=== PATIENT | male | born 1955 | race Caucasian/White ===

== ENCOUNTER 2020-05-01 16:06 | Outpatient (REF) | payer MEDICARE, SELFPAY ==
--- NOTE | 2020-05-01 16:14 | XR_ITS ---
EXAMINATION: XR KNEE, LEFT CLINICAL INFORMATION: Pain in left knee. COMPARISON: None TECHNIQUE: Four views of the left knee. FINDINGS: There is a total left knee arthroplasty. The femoral component articulates appropriately with the tibial plateau and patellar components. No periprosthetic lucency or fracture. There is a small suprapatellar joint effusion. IMPRESSION: Total left knee arthroplasty in typical positioning and alignment. Small joint effusion present at the knee.
== END 2020-05-01 16:07 | disposition home or self-care (01) ==
LOC: HO.HMGCX 16:06
PROVIDERS: PCP Nurse Practitioner Family; Visit Provider Hospitalist
DX: M25.562 Pain in left knee (principal)
CPT/HCPCS: 73564

== ENCOUNTER 2020-08-03 15:35 | Outpatient (REF) | payer MEDICARE, SELFPAY ==
--- NOTE | 2020-08-03 15:38 | XR_ITS ---
EXAMINATION: XR HIP, LEFT CLINICAL INFORMATION: M25.552 - Pain in left hip COMPARISON: Radiographs left hip 03/16/2020 TECHNIQUE: Two views of the left hip. FINDINGS: There is mild osteoarthritis again seen similar to prior study. Again, there is mild convexity at the lateral femoral head neck junction which may predispose patient to femoro-acetabular impingement. There is no interval joint narrowing or erosive change or chondrocalcinosis. Mild spurring is again seen at the bilateral medial inferior pubic rami which may be related to adductor muscles. XR/XR hip LT min 2V IMPRESSION: Mild osteoarthritis similar to prior study 03/16/2020.
== END 2020-08-03 15:36 | disposition home or self-care (01) ==
LOC: HO.HMGCX 15:35
PROVIDERS: PCP Nurse Practitioner Family; Visit Provider Nurse Practitioner Family
DX: M25.552 Pain in left hip (principal)
CPT/HCPCS: 73502

== ENCOUNTER → 2020-08-06 07:46 | Outpatient (BNVA) | payer MEDICARE, SELFPAY | PROVIDERS: PCP Nurse Practitioner Family; Visit Provider Orthopaedic Surgery | DX: M70.62 Trochanteric bursitis, left hip (principal); E11.9 Type 2 diabetes mellitus without complications; E66.01 Morbid (severe) obesity due to excess calories | CPT/HCPCS: 20610; 99202; J1100 ==

== ENCOUNTER 2020-08-06 09:04 | Outpatient (REF) | payer MEDICARE, SELFPAY ==
[2020-08-06 10:52] LABS: Alanine Aminotransferase 46 U/L (0-40); Albumin Level 4.3 g/dL (3.5-5.0); Alkaline Phosphatase 113 U/L (39-117); Anion Gap 14 (12-20); Aspartate Amino Transferase 27 U/L (5-37); Bilirubin Total 0.7 mg/dL (0.0-1.0); Blood Urea Nitrogen 25 mg/dL (9-16); Calcium 9.5 mg/dL (8.4-10.2); Carbon Dioxide 29 mmol/L (22-29); Chloride 102 mmol/L (96-108); Cholesterol 110 mg/dL; Estimated Glomerular Filt Rate > 60; Glucose Fasting 158 mg/dL (60-99); HDL Cholesterol 31 mg/dL; LDL Cholesterol Calculated 37 mg/dl; Potassium 4.6 mmol/l (3.3-5.1); Sodium 140 mmol/L (135-145); Total Protein 7.3 g/dL (6.5-8.0); Triglycerides 210 mg/dL
[2020-08-06 10:53] LABS: Estimated Average Glucose 154 mg/dL
[2020-08-06 11:00] LABS: Creatinine Urine 194.02 mg/dL; Microalbum/Creatinine Ratio Ur 21.6 ug/mg cr
[2020-08-06 11:13] LABS: Prostate Specific Antigen Scr 1.56 ng/mL (<0.05-4.0); TSH reflex Free T4 0.98 mIU/mL (0.32-4.0)
== END 2020-08-06 09:05 | disposition home or self-care (01) ==
LOC: HO.10HDL 09:04
PROVIDERS: Visit Provider Nurse Practitioner Family
DX: E11.9 Type 2 diabetes mellitus without complications (principal); Z12.5 Encounter for screening for malignant neoplasm of prostate
CPT/HCPCS: 36415; 80053; 80061; 82043; 83036; 84153; 84443

== ENCOUNTER → 2020-09-09 09:58 | Outpatient (BNVA) | payer MEDICARE, SELFPAY | PROVIDERS: PCP Nurse Practitioner Family; Visit Provider Nurse Practitioner Family | DX: M46.1 Sacroiliitis, not elsewhere classified (principal); M70.62 Trochanteric bursitis, left hip; M25.562 Pain in left knee | CPT/HCPCS: 99202 ==

== ENCOUNTER 2020-10-09 08:00 | Outpatient (RCR) | payer MEDICARE, SELFPAY ==
--- NOTE | 2020-08-12 09:51 | MHC.PT.EP ---
[facility] [place] Office [place] Office [place] Office [address] Ingrid Barba [address] [phone] F: [phone] F: [phone] F: [phone] F: [phone] Physical Therapy Plan of Care Date of Evaluation: 08/12/20 Date of Surgery: L knee surgeries Diagnosis: L hip pain Assessment: Patient is a 65 year old R handed male who presents with s/s consistent with L hip pain. X-ray shows mild OA. He has a history of 5 L knee surgeries likely contributing. He is also re-diabetic with intermittent back pain. He worked 30 years, 12 hours per day, 7 days per week until retiring 15 years ago. Current impairments include pain, ROM, strength, safety, independence, activity tolerance and functional mobility. Functional limitations include decreased ability to walk, stand, transfer, negotiate stairs, and perform weight bearing activities.. Patient is motivated with good rehab potential. Skilled PT will address impairments and functional limitations in order to achieve goals. 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 Manual therapy to restore motion and function. Therapeutic exercise to improve strength and flexibility. Neuromuscular re-education for posture and balance. Therapeutic activities to return to functional activities of daily living. Electronically signed by: Grant Reddy, PT Please sign and return to therapist. Thank you for your referral.
--- NOTE | 2020-11-26 14:43 | MHC.PT.DC ---
[facility] [place] Office [place] Office [place] Office [address] Ingrid Barba [address] [phone] F: [phone] F: [phone] F: [phone] F: [phone] Physical Therapy Discharge Report Diagnosis: L hip pain Date of Surgery: L knee surgeries Date of Evaluation: 08/12/20 Date of Discharge: 11/03/20 Treatments to Date: 16 Cancellations to Date: 1 No Shows to Date: 0 Discharge Status: Improved Function Discharge Summary: Still with some TTP and weakness. But overall progressed well and I with HEP. Able to bike 15 minutes. Step through at times on stairs but not consistently. Hip abd 4-/5. LEFS 25/80. Progressed towards goals, some unmet. Electronically signed by: Grant Reddy PT Please sign and return to therapist. Thank you for your referral.
== END 2020-11-26 15:01 | disposition home or self-care (01) ==
LOC: HO.PTCHIC 08:00
PROVIDERS: PCP Nurse Practitioner Family; Visit Provider Nurse Practitioner Family
DX: M70.62 Trochanteric bursitis, left hip (principal)
CPT/HCPCS: 97110; 97140; 97162

== ENCOUNTER → 2020-10-22 11:19 | Outpatient (BNVA) | payer MEDICARE, SELFPAY | PROVIDERS: PCP Nurse Practitioner Family; Visit Provider Orthopaedic Surgery | DX: M70.62 Trochanteric bursitis, left hip (principal); E11.9 Type 2 diabetes mellitus without complications; M46.1 Sacroiliitis, not elsewhere classified | CPT/HCPCS: 20610; 99212; J1100 ==

== ENCOUNTER 2020-12-23 12:19 | Outpatient (REF) | payer MEDICARE, SELFPAY ==
[2020-12-23 16:13] LABS: Estimated Average Glucose 295 mg/dL; Hemoglobin A1c % 11.9 %
[2020-12-23 16:48] LABS: Alanine Aminotransferase 40 U/L (0-40); Albumin Level 4.4 g/dL (3.5-5.0); Alkaline Phosphatase 150 U/L (39-117); Anion Gap 16 (12-20); Aspartate Amino Transferase 25 U/L (5-37); Bilirubin Total 0.9 mg/dL (0.0-1.0); Blood Urea Nitrogen 20 mg/dL (9-16); Calcium 9.9 mg/dL (8.4-10.2); Carbon Dioxide 25 mmol/L (22-29); Chloride 101 mmol/L (96-108); Cholesterol 115 mg/dL; Estimated Glomerular Filt Rate > 60; HDL Cholesterol 33 mg/dL; LDL Cholesterol Calculated 33 mg/dl; Potassium 4.6 mmol/L (3.3-5.1); Sodium 137 mmol/L (135-145); Total Protein 7.2 g/dL (6.5-8.0); Triglycerides 248 mg/dL
[2020-12-23 16:57] LABS: Glucose Fasting 405 mg/dL (60-99)
[2020-12-23 17:02] LABS: Creatinine Urine 113.86 mg/dL; Microalbum/Creatinine Ratio Ur 140.5 ug/mg cr
== END 2020-12-23 12:20 | disposition home or self-care (01) ==
LOC: HO.HMGCLDS 12:19
PROVIDERS: PCP Nurse Practitioner Family; Visit Provider Nurse Practitioner Family
DX: E11.9 Type 2 diabetes mellitus without complications (principal)
CPT/HCPCS: 36415; 80053; 80061; 82043; 83036; 84443

== ENCOUNTER 2021-05-25 07:58 | Outpatient (REF) | payer MEDICARE, SELFPAY ==
[2021-05-25 12:14] LABS: Creatinine Urine 114.42 mg/dL; Protein/Creatinine Ratio, Ur 0.17 (<0.2); Total Protein Urine Random 19 mg/dL (<12)
[2021-05-25 12:17] LABS: Anion Gap 10 (12-20); Blood Urea Nitrogen 17 mg/dL (9-16); Calcium 9.2 mg/dL (8.4-10.2); Carbon Dioxide 29 mmol/L (22-29); Chloride 107 mmol/L (96-108); Estimated Glomerular Filt Rate > 60; Potassium 4.2 mmol/L (3.3-5.1); Sodium 142 mmol/L (135-145)
[2021-05-25 12:21] LABS: Cholesterol 101 mg/dL; HDL Cholesterol 35 mg/dL; LDL Cholesterol Calculated 46 mg/dl; Triglycerides 104 mg/dL
== END 2021-05-25 07:59 | disposition home or self-care (01) ==
LOC: HO.HMGCLDS 07:58
PROVIDERS: PCP Nurse Practitioner Family; Visit Provider Internal Medicine Nephrology
DX: E78.5 Hyperlipidemia, unspecified (principal); I12.9 Hypertensive chronic kidney disease with stage 1 through stage 4 chronic kidney disease, or unspecified chronic kidney disease; E11.21 Type 2 diabetes mellitus with diabetic nephropathy
CPT/HCPCS: 36415; 80051; 80061; 82310; 82565; 84156; 84520

== ENCOUNTER 2021-06-24 13:59 | Outpatient (REF) | payer MEDICARE, SELFPAY ==
--- NOTE | ~2021-06-24 | MR_ITS ---
EXAMINATION: MR BRAIN WITHOUT CONTRAST CLINICAL INFORMATION: Patient dragging right leg. Falls. Evaluate for stroke. COMPARISON: None. TECHNIQUE: Multiplanar, multisequence imaging of the brain was performed without contrast. Slightly limited study with motion artifacts. FINDINGS: No diffusion abnormalities are identified to suggest an acute or subacute infarct. The ventricles are normal in size. No mass effect or midline shift is seen. Mild chronic white matter microangiopathic changes noted. No extra-axial fluid collections are seen. The brainstem and cerebellum are normal. The gradient refocused acquisition is normal. The craniovertebral junction, marrow signal, and midline structures are normal. The major intracranial flow voids at the level of the [place] are preserved. The dural venous sinus flow voids are maintained. There is a mild amount of fluid in the mastoid air cells and very mild ethmoid sinus mucosal thickening. MR/MR head/brain wo con IMPRESSION: No acute intracranial process. Mild chronic white matter microangiopathy.
== END 2021-06-24 14:00 | disposition home or self-care (01) ==
LOC: HO.MRI 13:59
PROVIDERS: PCP Nurse Practitioner Family; Visit Provider Psychiatry & Neurology Neurology
DX: I63.9 Cerebral infarction, unspecified (principal)
CPT/HCPCS: 70551

== ENCOUNTER 2021-07-16 14:38 | Outpatient (REF) | payer MEDICARE, SELFPAY ==
--- NOTE | ~2021-07-16 | XR_ITS ---
EXAMINATION: XR SHOULDER, RIGHT CLINICAL INFORMATION: Pain in right shoulder COMPARISON: None TECHNIQUE: Three views of the right shoulder. FINDINGS: There is mild acromioclavicular osteoarthritis. Glenohumeral joint is well preserved. No fracture. Alignment is anatomic. Visualized right lung and ribs are normal. XR/XR shoulder RT min 2V IMPRESSION: No acute osseous abnormality of the right shoulder.
== END 2021-07-16 14:39 | disposition home or self-care (01) ==
LOC: HO.HMGCX 14:38
PROVIDERS: PCP Nurse Practitioner Family; Visit Provider Physician Assistant Medical
DX: M25.511 Pain in right shoulder (principal)
CPT/HCPCS: 73030

== ENCOUNTER 2021-07-21 08:37 | Emergency (ER) | payer MEDICARE, SELFPAY ==
--- NOTE | ~2021-07-21 | XR_ITS ---
EXAMINATION: LEFT KNEE 4 VIEWS. RIGHT SHOULDER 2 VIEWS CLINICAL INFORMATION: Pain COMPARISON: 07/16/2021. 08/03/2020 TECHNIQUE: 2 views of the left knee. 3 views Right shoulder. FINDINGS: Left knee: Three-part knee prosthesis intact. No fracture, dislocation or destructive process. Right shoulder: 3 views show productive change along the AC joint with narrowing of the glenohumeral joint space but no fracture, dislocation or destructive process. XR/XR knee LT 4V IMPRESSION: Degenerative change noted. No acute abnormalities.
--- NOTE | ~2021-07-21 | XR_ITS ---
EXAMINATION: LEFT KNEE 4 VIEWS. RIGHT SHOULDER 2 VIEWS CLINICAL INFORMATION: Pain COMPARISON: 07/16/2021. 08/03/2020 TECHNIQUE: 2 views of the left knee. 3 views Right shoulder. FINDINGS: Left knee: Three-part knee prosthesis intact. No fracture, dislocation or destructive process. Right shoulder: 3 views show productive change along the AC joint with narrowing of the glenohumeral joint space but no fracture, dislocation or destructive process. XR/XR shoulder RT min 2V IMPRESSION: Degenerative change noted. No acute abnormalities.
[2021-07-21 08:52] VITALS: BP 140/78; PULSE 65; RESP 16; TEMP 36.4; O2SAT 99; BMI 41.1
--- NOTE | 2021-07-21 08:58 | ED_ITS ---
HPI - Fall General Chief Complaint: Fall Stated Complaint: fall/ knee pain Time Seen by Provider: 07/21/21 08:57 Source: patient Mode of arrival: ambulatory Limitations: no limitations History of Present Illness HPI Narrative: 66-year-old male past medical history significant for diabetes, osteoarthritis of the hip, current right shoulder fracture presenting to the emergency department with left knee pain and right shoulder pain status post slip on ice earlier this morning. Patient was leaving his doctor's appointment here, he was walking to his car, he slipped on ice, fall was witnessed by multiple bystanders, he did not hit his head or lose consciousness. He was unable to get up by himself. He was brought into the emergency department in a wheelchair. He reports left knee pain worse with movement better at rest. He also reports right shoulder pain, patient is in a sling for his right shoulder, he tells me that he was recently told that he has a right shoulder fracture. He also tells me that he has hardware in his left knee he had a total knee replacement and he is followed by [facility] Dr. Wilson. No headache, dizziness, changes in vision, LOC, CP, SOB, neck pain MD complaint: fall Onset (ago): minute(s) (20) Fall from: standing Fall witnessed: yes, by bystander Place fall occurred: other ( [facility] leaving an appointment) Loss of consciousness: none Prolonged down time: no Symptoms prior to fall: none Context: tripped/slipped ( slipped on ice.) Location of injury: other (L.knee, R.shoulder) Severity: moderate Quality: other ( Constant) Associated symptoms (after fall): denies Related Data Home Medications Medication Instructions Recorded Confirmed flu vacc 2019-(65yr ml IM 05/01/20 08/03/20 up)-MF59C(PF) 60 mcg(15 mcgx4)/0.5 mL IM syringe hydrochlorothiazide 12.5 mg capsule 12.5 mg PO QAM 05/01/20 01/13/21 losartan 100 mg tablet 100 mg PO DAILY 05/01/20 01/13/21 sildenafil 25 mg tablet 25 mg PO DAILY PRN 05/01/20 01/13/21 Bifidobacterium infantis 4 mg 4 mg PO DAILY 12/23/20 01/13/21 capsule (Align) ascorbate calcium (vitamin C) 500 1,000 mg PO DAILY tab 12/23/20 01/13/21 mg tablet aspirin 81 mg tablet,delayed 81 mg PO DAILY 12/23/20 01/13/21 release coenzyme Q10 100 mg capsule (Co 100 mg PO DAILY 12/23/20 01/13/21 Q-10) fexofenadine 180 mg tablet 180 mg PO Q24H 12/23/20 01/13/21 (Lesli Allergy) qesulhvxqied-irqbfcrt-juvuiq tablet 1 tab PO DAILY 12/23/20 01/13/21 Previous Rx's Medication Instructions Recorded colchicine 0.6 mg tablet 0.6 mg PO DAILY PRN 30 Days #30 tab 06/04/20 blood sugar diagnostic (OneTouch #100 ea 12/23/20 Ultra Blue Test Strip) lancets ([employer]Touch UltraSoft #100 ea 12/23/20 Lancets) omega-3 acid ethyl esters 1 gram 2 cap PO BID 30 Days #120 cap 12/23/20 capsule insulin syringe-needle U-100 0.3 #100 ea 12/24/20 mL 31 gauge x 5/16 (BD Insulin Syringe Ultra-Fine) blood-glucose meter (OneTouch #1 ea 12/25/20 Ultra2 Meter) atorvastatin 80 mg tablet 80 mg PO DAILY 90 Days #90 tab 03/16/21 pantoprazole 40 mg tablet,delayed 40 mg PO DAILY 90 Days #90 tab 04/14/21 release metformin 1,000 mg tablet 1,000 mg PO BID 90 Days #180 tab 06/07/21 amoxicillin 875 mg-potassium 1 tab PO Q12H 10 Days #20 tab 06/30/21 clavulanate 125 mg tablet (Augmentin) amlodipine 10 mg tablet 10 mg PO DAILY #90 cap 07/18/21 insulin glargine 100 unit/mL 18 unit (0.18 mL) SUBCUT QPM 30 07/18/21 subcutaneous solution (Lantus Days #10 ml U-100 Insulin) Allergies Allergy/AdvReac Type Severity Reaction Status Date / Time methotrexate Allergy Unknown shortness Verified 01/13/21 16:10 of breath cats and dogs Allergy Unknown Unknown Uncoded 01/13/21 16:10 Review of Systems Review of Systems: Constitutional : No Fever, No Chills, Cardiovascular : No Chest Pain, No SOB Respiratory : No Dyspnea Gastrointestinal : No abdominal pain Musculoskeletal : + Joint Swelling,+ joint pain Skin : No rash, no skin laceration Neuro : No Weakness, No Numbness, no LOC Psych : No SI/HI Yes all other systems are reviewed and are negative [facility] Past Medical History Attestation statement: The following information was validated with the patient. Source: old records reviewed and nursing notes reviewed Medical History Asthma Romero esophagus CKD (chronic kidney disease) Dyslipidemia HTN (hypertension) ANTONIA (obstructive sleep apnea) Plaque psoriasis Stroke Trochanteric bursitis, left hip Type 2 diabetes mellitus Surgical History History of left knee replacement History of left knee surgery Hx of appendectomy Hx of tonsillectomy Family History Family History Father Diabetes Mother Diabetes Cancer Brother Bladder cancer Social History Social History Alcohol intake: never Advance Directives: No Advance Directives Information Provided: No Current occupational status: retired Current occupation: right handed Physical Exam Vital Signs: Vital Signs: Last Vital Signs Temp 97.6 F 07/21/21 08:52 Pulse 65 07/21/21 08:52 Resp 16 07/21/21 08:52 BP 140/78 H 07/21/21 08:52 Pulse Ox 99 07/21/21 08:52 BMI result Body Mass Index 41.1 VSS Appearance: Alert.? Oriented X3.? No acute distress.? Head: Normocephalic, atraumatic, no step-offs or deformities Eyes: Pupils equal, round and reactive to light.? ENT: Pharynx normal.? Neck: Normal inspection.? Neck supple.? CVS: Normal heart rate and rhythm.? Pulses normal.? Respiratory: No respiratory distress.? Breath sounds normal.? Abdomen: Soft and nontender.? Skin: Skin warm and dry.? Normal skin color.? Normal skin turgor.? Extremities: No lower extremity edema.? No calf ttp. 5/5 strength to bilateral upper and lower extremities + limited ROM to R. knee d/t pain, R. PT,DP pulse normal, no pain to palpation, sensation and motor intact. Left knee normal. +right shoulder pain with ROM, 2+ brachial pulses, sensation and motor intact. in a sling pt tells me d/t previous shoulder fracture pain with plapation over r. clavicle area. Back: No midline tenderness, no C-spine tenderness, full range of motion, no CVA tenderness bilaterally Neuro: Oriented X 3.? No motor deficit.? No sensory deficit. Course Reevaluation(s) Reevaluation #1: X-ray of the knee to the left shows degenerative changes, no acute abnormalities. Right shoulder shows productive change along the AC joint with narrowing of the glenohumeral joint space but no fracture. Time: 10:36 Reevaluation #2: MARÍA ELENA Sherman. Patient already in sling, want to ensure patient has out patient follow up. Orthopedics recommends outpatient follow-up. Possible fracture, they will evaluate him on an outpatient basis. At this time I feel comfortable discharge home. Time: 10:39 MDM - Fall MDM Narrative Medical decision making narrative: 09 66 yo m presents to the emergency department with right shoulder pain, and left knee pain status post trip and fall just prior to his arrival. Patient slipped on ice. Denies preceding symptoms. Patient is not on blood thinners. He denies LOC, he did not hit his head. Fall was witnessed by an employee. Physical examination there is limited ROM to R. knee d/t pain, R. PT,DP pulse normal, no pain to palpation, sensation and motor intact. Left knee normal. There is right shoulder pain with ROM, 2+ brachial pulses, sensation and motor intact. He is in a sling pt tells me d/t previous shoulder fracture , thu nw/ palpation over right clavicle. Plan at this time is to obtain x-rays of the right shoulder and left knee. Medical Records Attestation: I reviewed the patient's medical records. Lab Data Attestation: I reviewed the patient's lab results. Imaging Data left knee right shoulder xray : Attestation: I personally reviewed and interpreted this imaging study as follows: Radiologist's impression: FINDINGS: Left knee: Three-part knee prosthesis intact. No fracture, dislocation or destructive process. Right shoulder: 3 views show productive change along the AC joint with narrowing of the glenohumeral joint space but no fracture, dislocation or destructive process.? XR/XR knee LT 4V IMPRESSION: Degenerative change noted. No acute abnormalities.? Critical Care Time Critical Care Time Critical Care Time: No Discharge Plan Discharge Clinical Impression: Right shoulder pain, Strain of left knee, Fall due to slipping on ice or snow Patient Disposition: Home, Self-Care Instructions: R.I.C.E. Treatment (ED), Shoulder Pain (ED) Additional Instructions: Take your medications as prescribed. If you were prescribed antibiotics today, it is important that you take your medication to their entirety, do not skip any doses, do not finish them early. Follow-up with your primary care provider this week. Follow-up with orthopedics within a week. Return to the emergency department with new or worsening symptoms. In case of emergency call 911 Prescriptions: No Action colchicine 0.6 mg tablet 0.6 mg PO DAILY PRN (Reason: gout) 30 Days Qty: 30 RF: 0 (DME) OneTouch Ultra Blue Test Strip Strip See Rx Instructions .ROUTE .MEDSUPPLY Qty: 100 RF: 2 (DME) lancets [OneTouch UltraSoft Lancets] [facility] See Rx Instructions .ROUTE .MEDSUPPLY Qty: 100 RF: 2 omega-3 acid ethyl esters 1 gram capsule 2 cap PO BID 30 Days Qty: 120 RF: 3 (DME) insulin syringe-needle U-100 [BD Insulin Syringe Ultra-Fine] 0.3 mL 31 gauge x 5/16 syringe See Rx Instructions .ROUTE .MEDSUPPLY Qty: 100 RF: 0 (DME) blood-glucose meter [OneTouch Ultra2 Meter] [facility] See Rx Instructions .ROUTE .MEDSUPPLY Qty: 1 RF: 0 atorvastatin 80 mg tablet 80 mg PO DAILY 90 Days Qty: 90 RF: 2 pantoprazole 40 mg tablet,delayed release (DR/EC) 40 mg PO DAILY 90 Days Qty: 90 RF: 0 metformin 1,000 mg tablet 1,000 mg PO BID 90 Days Qty: 180 RF: 0 amoxicillin-pot clavulanate [Augmentin] 875-125 mg tablet 1 tab PO Q12H 10 Days Qty: 20 RF: 0 amlodipine 10 mg tablet 10 mg PO DAILY Qty: 90 RF: 0 Lantus U-100 Insulin 100 unit/mL solution 18 unit subcut QPM 30 Days Qty: 10 RF: 2 losartan 100 mg tablet 100 mg PO DAILY RF: 0 hydrochlorothiazide 12.5 mg capsule 12.5 mg PO QAM RF: 0 Fluad Quad 2019-(65y up)(PF) 60 mcg (15 mcg x 4)/0.5 mL syringe IM RF: 0 sildenafil 25 mg tablet 25 mg PO DAILY PRNRF: 0 aspirin 81 mg tablet,delayed release (DR/EC) 81 mg PO DAILY RF: 0 coenzyme Q10 [Co Q-10] 100 mg capsule 100 mg PO DAILY RF: 0 fexofenadine [Lesli Allergy] 180 mg tablet 180 mg PO Q24H RF: 0 Align 4 mg capsule 4 mg PO DAILY RF: 0 qkehrixhquaq-wysbtwkp-jpkyvs Tablet 1 tab PO DAILY RF: 0 ascorbate calcium (vitamin C) 500 mg tablet 1,000 mg PO DAILY RF: 0 Referrals: Physician,Unknown J [Physician] - 2 days Ezekiel Miller MD [Physician] - 2 days Stand Alone Forms: Work/School Release
[2021-07-21] MEDS: Acetaminophen 325 MG TABLET 975 MG PO (10:54)
== END 2021-07-21 11:07 | disposition home or self-care (01) ==
PROVIDERS: Emergency Provider Emergency Medicine; PCP Nurse Practitioner Family
DX: S86.912A Strain of unspecified muscle(s) and tendon(s) at lower leg level, left leg, initial encounter (principal); M25.511 Pain in right shoulder; E11.22 Type 2 diabetes mellitus with diabetic chronic kidney disease; I12.9 Hypertensive chronic kidney disease with stage 1 through stage 4 chronic kidney disease, or unspecified chronic kidney disease; N18.9 Chronic kidney disease, unspecified; J45.909 Unspecified asthma, uncomplicated; W00.0XXA Fall on same level due to ice and snow, initial encounter; Y93.9 Activity, unspecified; Y92.238 Other place in hospital as the place of occurrence of the external cause; Y99.9 Unspecified external cause status
CPT/HCPCS: 73030; 73564; 99283; 99284

== ENCOUNTER 2021-07-26 17:42 | Outpatient (REF) | payer MEDICARE, SELFPAY | END 2021-07-26 17:43 | disposition home or self-care (01) | LOC: HO.MRI 17:42 | PROVIDERS: Visit Provider Psychiatry & Neurology Neurology | DX: Z13.89 Encounter for screening for other disorder (principal) ==

== ENCOUNTER → 2021-07-29 11:06 | Outpatient (BNVA) | payer MEDICARE, SELFPAY | PROVIDERS: Visit Provider Physician Assistant | DX: S40.011A Contusion of right shoulder, initial encounter (principal) | CPT/HCPCS: 99212 ==

== ENCOUNTER 2021-08-17 10:43 | Outpatient (REF) | payer MEDICARE, SELFPAY ==
[2021-08-17 12:12] LABS: INTERNATIONAL NORM RATIO 1.1 (0.9-1.1)
[2021-08-17 12:58] LABS: Erythrocyte Sedimentation Rate 10 MM/HR (0-15)
[2021-08-18 03:48] LABS: Syphilis Screen Nonreactive (Nonreactive)
[2021-08-18 09:32] LABS: Lyme Abs Screen <0.90 index
[2021-08-18 13:11] LABS: Anti Nuclear Antibody Screen NEGATIVE (NEGATIVE)
== END 2021-08-17 10:44 | disposition home or self-care (01) ==
LOC: HO.LAB 10:43
PROVIDERS: PCP Nurse Practitioner Family; Visit Provider Psychiatry & Neurology Neurology
DX: G81.90 Hemiplegia, unspecified affecting unspecified side (principal)
CPT/HCPCS: 36415; 85610; 85652; 86038; 86039; 86617; 86618; 86780

== ENCOUNTER 2021-08-26 08:49 | Day surgery (SDC) | payer MEDICARE, SELFPAY ==
--- NOTE | ~2021-08-26 | FL_ITS ---
EXAMINATION: XR LUMBAR PUNCTURE CLINICAL INFORMATION: Hemiparesis. COMPARISON: None TECHNIQUE: Following explaining fluoroscopy-guided lumbar puncture procedure, benefits and risks, a written consent was obtained. Patient was placed prone on fluoroscopy table and low back area was cleaned and draped in usual sterile manner. 1% lidocaine was injected overlying the L4-L5 disc level in left paramidline region. A 22-gauge spinal needle was inserted from the skin intrathecally at the L4-L5 disc level. After observing CSF return, patient was quickly placed in the left lateral decubitus view and opening CSF pressure was obtained. Subsequently CSF was collected in 4 test tubes. Postprocedure stylet was reintroduced and needle withdrawn. Complete hemostasis achieved at puncture site. Sterile dressing applied postprocedure. Patient tolerated procedure extremely well. FINDINGS: On several images obtained of lumbar spine there is mild scoliosis. There is loss of L5-S1 disc height. There are mild L5-S1 facet joint changes. Opening CSF pressure measures 14 cm of water. Approximately 8 mL of clear CSF fluid was collected. FLUOROSCOPY TIME: 1.2 minutes DOSE AREA PRODUCT: 11.949 uGy-m2 (microgray-meter squared) FL/FL guided lumbar puncture LP IMPRESSION: Successful fluoroscopy-guided L4-L5 lumbar puncture performed.
[2021-08-26 09:11] VITALS: BMI 41.8
[2021-08-26 09:28] LABS: Glucose, Whole Blood 118 mg/dL (60-115)
[2021-08-26 09:41] LABS: MANUAL DIFF FLAG NO
[2021-08-26 09:53] LABS: Basophils Percent Auto 0.4 % (0-2); Eosinophils Absolute Auto 0.2 X10*3/uL (0.0-0.4); Eosinophils Percent Auto 2.1 % (0-4); Hematocrit 40.7 % (42.0-52.0); Hemoglobin 13.7 g/dl (14.0-18.0); Imm Gran Abs Auto 0.03 X10*3/uL (0.00-0.03); Imm Gran Pct Auto 0.4 % (0.0-0.4); Lymphocytes Absolute Auto 1.4 X10*3/uL (1.2-4.9); Lymphocytes Percent Auto 17.3 % (20-40); Mean Corpuscular HGB Conc 33.7 g/dl (31.0-36.0); Mean Corpuscular Hemoglobin 29.3 pg (27.0-33.0); Mean Corpuscular Volume 87.2 fL (80.0-98.0); Mean Platelet Volume 10.1 fL (9.4-12.4); Monocytes Absolute Auto 0.7 X10*3/uL (0.1-1.2); Monocytes Percent Auto 8.3 % (2-11); Neutrophils Absolute Auto 5.6 x10*3/uL (2.0-8.3); Neutrophils Percent Auto 71.5 % (45-73); Platelet Count 218 X10*3/uL (160-400); Red Blood Count 4.67 X10*6/uL (4.60-5.80); Red Cell Distribution Width 13.9 % (11.0-16.0); White Blood Count 7.8 X10*3/uL (4.8-10.8)
[2021-08-26 09:56] LABS: Prothrombin Time 11.7 SEC (9.9-13.0)
[2021-08-26 09:59] LABS: Partial Thromboplastin Time 35.8 SEC (24.1-38.0)
[2021-08-26 13:06] VITALS: BP 150/76; PULSE 59; RESP 18; TEMP 36.6; O2SAT 95
[2021-08-26 13:37] LABS: CSF Appearance Clear, Colorless; CSF Tube # 2
[2021-08-26 13:44] VITALS: PULSE 57; RESP 16; O2SAT 95
[2021-08-26 13:47] LABS: Glucose CSF 79 mg/dL; Total Protein CSF 50.2 mg/dL (15-45)
[2021-08-26 14:15] VITALS: BP 158/80; PULSE 63; RESP 16; O2SAT 96
[2021-08-26 14:28] LABS: Appearance CSF HAZY; CSF Monos 0 %; CSF Tube # 4; CSF Volume 1.5 ML; Color CSF PINK; Lymphocytes CSF 0 %; Neutrophils CSF 0 %; Red Blood Cell CSF 2038 MM*3; White Blood Cell CSF 0 MM*3
[2021-08-26 14:29] LABS: CSF Other Cells % 0 %
[2021-08-26 14:45] VITALS: BP 154/78; PULSE 61; RESP 16; O2SAT 96
[2021-08-26 15:15] VITALS: BP 158/80; PULSE 76; RESP 16; O2SAT 96
[2021-08-27 06:40] LABS: Oligoclonal Serum Yes
[2021-08-29 21:46] LABS: Albumin 3.5 g/dL (3.2-4.6); Albumin, CSF 29.9 mg/dL (8.0-42.0); IgG 844 mg/dL (600-1540); IgG, CSF 3.4 mg/dL (0.8-7.7)
== END 2021-08-26 15:15 | disposition home or self-care (01) ==
PROVIDERS: Psychiatry & Neurology Neurology; Radiology Diagnostic Radiology; PCP Nurse Practitioner Family; Visit Provider Radiology Diagnostic Radiology
PROC: 009U3ZZ Drainage of Spinal Canal, Percutaneous Approach (ICD-10-PCS; CPT 62270; principal; 2021-08-26 11:00)
DX: G81.91 Hemiplegia, unspecified affecting right dominant side (principal); G62.9 Polyneuropathy, unspecified; J45.909 Unspecified asthma, uncomplicated; G47.33 Obstructive sleep apnea (adult) (pediatric); I67.9 Cerebrovascular disease, unspecified; I10 Essential (primary) hypertension; E66.9 Obesity, unspecified; E11.9 Type 2 diabetes mellitus without complications; Z79.4 Long term (current) use of insulin; Z79.899 Other long term (current) drug therapy; Z79.82 Long term (current) use of aspirin; Z79.51 Long term (current) use of inhaled steroids; Z88.8 Allergy status to other drugs, medicaments and biological substances
CPT/HCPCS: 36415; 62328; 82042; 82945; 82947; 83916; 84157; 85025; 85610; 85730; 87015; 87070; 87205; 89051

== ENCOUNTER → 2021-09-30 10:40 | Outpatient (BNVA) | payer MEDICARE, SELFPAY | PROVIDERS: PCP Nurse Practitioner Family; Visit Provider Physician Assistant | DX: S46.001A Unspecified injury of muscle(s) and tendon(s) of the rotator cuff of right shoulder, initial encounter (principal) | CPT/HCPCS: 20610; 99202; J1020 ==

== ENCOUNTER 2021-11-16 09:14 | Outpatient (REF) | payer MEDICARE, SELFPAY ==
[2021-11-16 10:38] LABS: Blood Urea Nitrogen 25 mg/dL (9-16); Estimated Glomerular Filt Rate > 60
== END 2021-11-16 09:15 | disposition home or self-care (01) ==
LOC: HO.LAB 09:14
PROVIDERS: PCP Nurse Practitioner Family; Visit Provider Psychiatry & Neurology Neurology
DX: G62.9 Polyneuropathy, unspecified (principal); I67.9 Cerebrovascular disease, unspecified
CPT/HCPCS: 36415; 82565; 84520

== ENCOUNTER 2021-11-26 09:00 | Outpatient (RCR) | payer MEDICARE, SELFPAY ==
--- NOTE | 2021-10-04 14:24 | MHC.PT.EP ---
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 Of note, pt has poor R foot clearance progressive R-sided weakness for 6 months of insidious onset. He is undergoing w/u to identify progressive weakness and thus far has had brain MRI, lumbar puncture, cervical MRI. States Dr. Varela reports he has had several mini strokes but that is most likely not the cause of progressive weakness. He is being followed by Dr. Varela for this. Examination shows significantly decreased R shoulder AROM, decreased scapular/RTC strength, increased pain and impaired postural awareness. S/s consistent with RTC tear. Recommend PT 2x/week for 8 weeks to address impairments, implement HEP, and optimize functional mobility. Frequency and Duration: The patient will be seen 2x/week for 8 weeks Short Term Goals: 3 weeks 1. Initiate HEP 2. Improve R shoulder flexion to 90* Correction Goals: 5 weeks 1. I with HEP and self management of sx 2. Pt will be able to reach behind head to faciliate dressing with pain < 3/10 3. Pt will be able to lift 10# grocery bag with pain < 3/10 Treatment Plan: Modalities to reduce pain, spasms and effusion. Manual therapy to restore motion and function. Therapeutic exercise to improve strength and flexibility. Neuromuscular re-education for posture and balance. Therapeutic activities to return to functional activities of daily living. Electronically signed by: Catherine Ruby PT Please sign and return to therapist. Thank you for your referral.
--- NOTE | 2021-12-20 10:55 | MHC.PT.DC ---
[facility] [place] Office [place] Office [place] Office [address] Ingrid Barba [address] [phone] F: [phone] F: [phone] F: [phone] F: [phone] Physical Therapy Discharge Report Diagnosis: Injury of R RTC Date of Surgery: Date of Evaluation: 10/04/21 Date of Discharge: 12/20/21 Treatments to Date: 12 Cancellations to Date: 0 No Shows to Date: 0 Discharge Status: Independent with HEP Recommend MD Follow-up Discharge Summary: PT held at this time and pt to be coming for LE weakness. He has had poor-moderate tolerance for exercises and minimal gains in shoulder AROM. He is I with HEP and d/c to I HEP at this time. Electronically signed by: Catherine Ruby PT Please sign and return to therapist. Thank you for your referral.
== END 2021-12-20 10:56 | disposition home or self-care (01) ==
LOC: HO.PTCHIC 09:00
PROVIDERS: PCP Nurse Practitioner Family; Visit Provider Physician Assistant
DX: S46.001A Unspecified injury of muscle(s) and tendon(s) of the rotator cuff of right shoulder, initial encounter (principal)
CPT/HCPCS: 97110; 97162

== ENCOUNTER → 2021-11-29 08:45 | Outpatient (BNVA) | payer MEDICARE, SELFPAY | PROVIDERS: PCP Nurse Practitioner Family; Visit Provider Orthopaedic Surgery | DX: M12.811 Other specific arthropathies, not elsewhere classified, right shoulder (principal); R29.6 Repeated falls; E11.9 Type 2 diabetes mellitus without complications | CPT/HCPCS: 99212 ==

== ENCOUNTER 2022-01-07 09:00 | Outpatient (RCR) | payer MEDICARE, SELFPAY ==
--- NOTE | 2021-12-15 12:41 | MHC.PT.EP ---
[facility] [place] Office [place] Office [place] Office [address] Ingrid Barba [address] [phone] F: [phone] F: [phone] F: [phone] F: [phone] Physical Therapy Plan of Care Date of Evaluation: Date of Surgery: n/a Diagnosis: weakness in R LE Assessment: Patient is a 66 year old male presenting to PT with complaints of weakness in his RLE. Pt reports onset began about 4-5 months ago due to insidious onset. He presents today with impairments in pain, RLE strength, gait mechanics, balance, and posture. Pt's current occupation is retired, with baseline physical activities including ambulation, stair negotiation, ADLs. Pt expresses mcc goal of getting stronger, and is motivated to work towards this in PT. Clinical presentation today is most consistent with signs and sx associated with RLE weakness with possible contribution from the lumbar spine and pt will benefit from skilled PT to address the following problems and impairments noted upon evaluation: pain, RLE strength, gait mechanics, balance, and posture. These problems limit the patient with the following functional activities: ambulation, stair negotiation, ADLs. The prescribed treatment plan of care is medically necessary. Co-morbidities of HTN, T2DM, hx mini stroke, hx L TKA were identified and taken into considerations of plan of care. Pt was educated on HEP, role of PT, prognosis, POC. Frequency and Duration: The patient will be seen 2 x week x 5 weeks Short Term Goals: Pt will demonstrate improved RLE strength by 1/3 MMT grade in 3 weeks. Pt will demonstrate tandem stance x 15 sec with min to no sway in 3 weeks. 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 Pt will demonstrate improved gait mechanics and better foot clearance with ambulation in 5 weeks for decreased risk of falls. Pt will demonstrate improved ability to perform STS in 1 attempt in 5 weeks for improved efficiency with transfers. Treatment Plan: Modalities to reduce pain, spasms and effusion. Manual therapy to restore motion and function. Therapeutic exercise to improve strength and flexibility. Neuromuscular re-education for posture and balance. Therapeutic activities to return to functional activities of daily living. Electronically signed by: Yuko Rivers, PT, DPT, ATC Please sign and return to therapist. Thank you for your referral.
--- NOTE | 2022-02-07 17:07 | MHC.PT.DC ---
[facility] [place] Office [place] Office [place] Office [address] Ingrid Barba [address] [phone] F: [phone] F: [phone] F: [phone] F: [phone] Physical Therapy Discharge Report Diagnosis: weakness in R LE Date of Surgery: n/a Date of Evaluation: 12/15/21 Date of Discharge: 02/07/22 Treatments to Date: 8 Cancellations to Date: 2 No Shows to Date: 0 Discharge Status: Recommend MD Follow-up Discharge Summary: Pt has not attended skilled PT in >30 days. Based on presentation at last attended appointment. Recommend following up with MD. Electronically signed by: Yuko Rivers, PT, DPT, ATC Please sign and return to therapist. Thank you for your referral.
== END 2022-02-07 17:08 | disposition home or self-care (01) ==
LOC: HO.PTCHIC 09:00
PROVIDERS: PCP Nurse Practitioner Family; Visit Provider Nurse Practitioner Family
DX: R29.898 Other symptoms and signs involving the musculoskeletal system (principal)
CPT/HCPCS: 97110; 97112; 97140; 97163

== ENCOUNTER 2022-03-03 07:32 | Outpatient (REF) | payer MEDICARE, SELFPAY ==
[2022-03-03 11:24] LABS: MANUAL DIFF FLAG NO
[2022-03-03 11:34] LABS: Basophils Percent Auto 0.7 % (0-2); Eosinophils Absolute Auto 0.2 X10*3/uL (0.0-0.4); Eosinophils Percent Auto 2.6 % (0-4); Hematocrit 42.2 % (42.0-52.0); Imm Gran Abs Auto 0.02 X10*3/uL (0.00-0.03); Imm Gran Pct Auto 0.3 % (0.0-0.4); Lymphocytes Absolute Auto 1.2 X10*3/uL (1.2-4.9); Lymphocytes Percent Auto 19.7 % (20-40); Mean Corpuscular HGB Conc 33.2 g/dl (31.0-36.0); Mean Corpuscular Hemoglobin 29.1 pg (27.0-33.0); Mean Corpuscular Volume 87.7 fL (80.0-98.0); Mean Platelet Volume 10.6 fL (9.4-12.4); Monocytes Absolute Auto 0.6 X10*3/uL (0.1-1.2); Monocytes Percent Auto 9.4 % (2-11); Neutrophils Absolute Auto 4.1 x10*3/uL (2.0-8.3); Neutrophils Percent Auto 67.3 % (45-73); Platelet Count 227 X10*3/uL (160-400); Red Blood Count 4.81 X10*6/uL (4.60-5.80); Red Cell Distribution Width 13.6 % (11.0-16.0)
[2022-03-03 11:36] LABS: Estimated Average Glucose 111 mg/dL; Hemoglobin A1c % 5.5 %
[2022-03-03 11:59] LABS: Alanine Aminotransferase 27 U/L (0-40); Albumin Level 4.1 g/dL (3.5-5.0); Alkaline Phosphatase 111 U/L (39-117); Anion Gap 16 (12-20); Aspartate Amino Transferase 26 U/L (5-37); Bilirubin Total 0.7 mg/dL (0.0-1.0); Blood Urea Nitrogen 18 mg/dL (9-16); Calcium 9.2 mg/dL (8.4-10.2); Carbon Dioxide 27 mmol/L (22-29); Chloride 107 mmol/L (96-108); Estimated Glomerular Filt Rate > 60; Glucose Fasting 112 mg/dL (60-99); Potassium 4.6 mmol/L (3.3-5.1); Sodium 145 mmol/L (135-145); Total Protein 6.9 g/dL (6.5-8.0)
[2022-03-03 12:00] LABS: Prostate Specific Antigen Scr 1.98 ng/mL (<0.05-4.0); TSH reflex Free T4 1.25 uIU/mL (0.32-4.0)
[2022-03-03 12:15] LABS: Appearance Urine Clear; Color Urine Dark Yellow; Glucose Urine UA Negative (Negative); Leukocyte Esterase Urine Moderate (2+) (Negative); Nitrite Urine Negative (Negative); PH 5.5 (5.0-8.0); Specific Gravity - Urine 1.025 (1.005-1.025); Urine Blood Negative (Negative); Urine Ketones Negative (Negative); Urine Protein Trace mg/dL (Neg-Trace)
[2022-03-03 12:18] LABS: Bacteria Urine None Seen (None Seen); Hyaline Casts Urine 0-2 /LPF (0-2); RBC Urine 0-2 /HPF (0-2); Squamous Epithelial Cell Urine 0-2 /HPF (0-2); UACC Culture Trigger YES; WBC Urine 21-50 /HPF (0-5)
[2022-03-03 12:31] LABS: Creatinine Urine 140.27 mg/dL; Microalbum/Creatinine Ratio Ur 32.7 ug/mg cr
== END 2022-03-03 07:33 | disposition home or self-care (01) ==
LOC: HO.HMGCLDS 07:32
PROVIDERS: PCP Nurse Practitioner Family; Visit Provider Nurse Practitioner Family
DX: Z12.5 Encounter for screening for malignant neoplasm of prostate (principal); M54.50 Low back pain, unspecified; E11.9 Type 2 diabetes mellitus without complications; R29.898 Other symptoms and signs involving the musculoskeletal system; G89.29 Other chronic pain
CPT/HCPCS: 36415; 80053; 81001; 82043; 83036; 84153; 84443; 85025; 87086

== ENCOUNTER 2022-04-02 11:03 | Emergency (ER) | payer MEDICARE, SELFPAY ==
[2022-04-02 11:56] VITALS: BP 125/71; PULSE 77; RESP 16; TEMP 36.1; O2SAT 96; BMI 40.7
[2022-04-02 13:22] LABS: Appearance Urine Clear; Color Urine Dark Yellow; Glucose Urine UA Negative (Negative); Leukocyte Esterase Urine Moderate (2+) (Negative); Nitrite Urine Negative (Negative); Specific Gravity - Urine >= 1.030 (1.005-1.025); UMIC TRIGGER UACC YES; Urine Blood Negative (Negative); Urine Ketones 15 mg/dL (Negative); Urine Protein 30 (1+) mg/dL (Neg-Trace)
--- NOTE | 2022-04-02 13:28 | ED_ITS ---
HPI - Back Pain/Injury General Chief Complaint: Back Pain/Injury Stated Complaint: back pain Time Seen by Provider: 04/02/22 13:01 Source: patient Mode of arrival: ambulatory Limitations: no limitations History of Present Illness HPI Narrative: Patient presents emergency department for evaluation of left lower back pain. Starts midline and radiates over toward the left. Does not radiate elsewhere such as down the leg. Denies any associated numbness or tingling to the left lower extremity. Has had similar pain about 1 month ago that resolved with the use of muscle relaxant. Reports baseline right upper and lower extremity numbness that has been chronic over the past year for which he is followed by his primary care provider for. Denies recent precipitating injury, fevers, chills, burning with micturition, urinary frequency/urgency/hesitancy, bladder or bowel dysfunction, numbness or tingling of the perineum. Denies any recent surgical procedures, any known immune compromising conditions, personal history of cancer, or IV drug usage. MD elicited complaint: back pain Related Data Home Medications Medication Instructions Recorded Confirmed flu vacc (65yr ml IM 05/01/20 03/02/22 up)-MF59C(PF) 60 mcg(15 mcgx4)/0.5 mL IM syringe hydrochlorothiazide 12.5 mg capsule 12.5 mg PO QAM 05/01/20 03/02/22 losartan 100 mg tablet 100 mg PO DAILY 05/01/20 03/02/22 Bifidobacterium infantis 4 mg 4 mg PO DAILY 12/23/20 03/02/22 capsule (Align) ascorbate calcium (vitamin C) 500 1,000 mg PO DAILY 12/23/20 03/02/22 mg tablet aspirin 81 mg tablet,delayed 81 mg PO DAILY 12/23/20 03/02/22 release coenzyme Q10 100 mg capsule (Co 100 mg PO DAILY 12/23/20 03/02/22 Q-10) fexofenadine 180 mg tablet 180 mg PO Q24H 12/23/20 03/02/22 (Lesli Allergy) rssaklserleb-fefojfci-pvfqsc tablet 1 tab PO DAILY 12/23/20 03/02/22 indomethacin 50 mg capsule 50 mg PO Q8H 03/02/22 03/02/22 Previous Rx's Medication Instructions Recorded colchicine 0.6 mg tablet 0.6 mg PO DAILY PRN gout 30 days 06/04/20 #30 tabs blood sugar diagnostic (OneTouch #100 ea 12/23/20 Ultra Blue Test Strip) lancets (OneTouch UltraSoft #100 ea 12/23/20 Lancets) omega-3 acid ethyl esters 1 gram 2 cap PO BID 30 days #120 caps 12/23/20 capsule insulin syringe-needle U-100 0.3 #100 ea 12/24/20 mL 31 gauge x 5/16 (BD Insulin Syringe Ultra-Fine) blood-glucose meter (OneTouch #1 ea 12/25/20 Ultra2 Meter) atorvastatin 80 mg tablet 80 mg PO DAILY 90 days #90 tabs 11/26/21 diclofenac sodium 3 % topical gel 1 appl topical BID 7 days #100 12/21/21 grams insulin glargine 100 unit/mL 21 unit (0.21 mL) subcut QPM 90 01/01/22 subcutaneous solution (Lan days #18.9 mL U-100 Insulin) cyclobenzaprine 10 mg tablet 10 mg PO BEDTIME #14 tabs 02/22/22 meloxicam 15 mg tablet 15 mg PO DAILY #14 tabs 02/22/22 metformin 1,000 mg tablet 1,000 mg PO BID #180 tabs 03/01/22 pantoprazole 40 mg tablet,delayed 40 mg PO DAILY #90 tabs 03/01/22 release sulfamethoxazole 800 1 tab PO BID 4 days #8 tabs 03/03/22 mg-trimethoprim 160 mg tablet (Bactrim DS) amlodipine 10 mg tablet 10 mg PO DAILY #90 caps 03/31/22 cyclobenzaprine 10 mg tablet 10 mg PO BEDTIME PRN muscle spasm 04/02/22 14 days #14 tabs Allergies Allergy/AdvReac Type Severity Reaction Status Date / Time methotrexate Allergy Unknown shortness Verified 03/02/22 17:17 of breath cats and dogs Allergy Unknown Unknown Uncoded 03/02/22 17:17 Review of Systems Review of Systems: Constitutional: No weight loss, fever, chills, weakness or fatigue. Skin: No rash or itching. Cardiovascular: No chest pain, chest pressure or chest discomfort. No palpitations or pedal edema. Respiratory: No shortness of breath, cough or sputum production. Gastrointestinal: No anorexia, nausea, vomiting or diarrhea. No abdominal pain or blood in stool. Genitourinary: No burning micturition. No urinary frequency or incontinence. Neurologic: No headache, dizziness, syncope, unilateral weakness. No change in bowel or bladder control. Musculoskeletal: + Back pain as noted in HPI. No joint pain or stiffness. Hematologic: No bleeding or bruising. Lymphatics: No enlarged lymph nodes. Psychiatric:No depression or anxiety. Endocrine: No reports of sweating. No cold or heat intolerance. No polyuria or polydipsia. Yes all other systems are reviewed and are negative PMFSH Past Medical History Attestation statement: The following information was validated with the patient. Source: old records reviewed Medical History Asthma Romero esophagus CKD (chronic kidney disease) Dyslipidemia HTN (hypertension) ANTONIA (obstructive sleep apnea) Plaque psoriasis Stroke Trochanteric bursitis, left hip Type 2 diabetes mellitus Surgical History History of left knee replacement History of left knee surgery Hx of appendectomy Hx of tonsillectomy Family History Family History Father Diabetes Mother Diabetes Cancer Brother Bladder cancer Social History Social History Housing: House Alcohol intake: never Patient Tobacco Use Status: Never used Tobacco e-Cigarette/Vaping Use: Never Used Second Hand Smoke Exposure: No Advance Directives: Yes Advance Directives on File: Yes Advance Directives Date on File: 12/23/20 Current occupational status: retired Current occupation: right handed Cognitive needs: No Hearing needs: No Vision needs: No Physical Exam Vital Signs: Vital Signs: Last Vital Signs Temp 96.9 F 04/02/22 11:56 Pulse 77 04/02/22 11:56 Resp 16 04/02/22 11:56 BP 125/71 04/02/22 11:56 Pulse Ox 96 04/02/22 11:56 O2 Del Method 04/02/22 11:56 BMI result Body Mass Index 40.7 Vital signs have been reviewed as normal and appeared to be correct. Blood pressure normal.? Heart rate normal.? Respiration rate normal. Temperature normal.? Oxygen saturation normal. Appearance: Alert.?Oriented to person, place and time. No acute dist ress.?Normal affect. Eyes: Pupils equal, round and reactive to light.? ENT: Pharynx normal.?? Neck: Normal inspection.? Neck supple.?? CVS: Heart sounds normal. Normal heart rate and rhythm.? Pulses normal; bilateral radial pulses 2+, bilateral posterior tibial/dorsalis pedis pulses 2+.? Respiratory: No respiratory distress.? Lung sounds clear to auscultation bilaterally?? Abdomen: Soft and non-tender. Normoactive bowel sounds. No pulsatile mass.?? Skin: Skin warm and dry.? Normal skin color.? Normal skin turgor.?? Extremities: No lower extremity edema.? No calf ttp? Back: + mild paraspinal muscular tenderness from lumbar region to coccyx. No CVA tenderness. No midline spinal tenderness, step-off's, or deformity. Full ROM intact in bilateral lower extremities. Straight leg test Negative on right; Straight leg test positive on left. No rashes, lesions, areas of induration or fluctuance, or signs of infection noted. Neuro: Moves all extremities spontaneously. 5/5 strength in hip extension/flexion, abduction, adduction. Sensation to light touch intact bilaterally. Patellar and Achilles reflex 2+ bilaterally. No ataxia, gait normal and steady. No focal neuro deficits. Course Course Course Narrative: Patient is a 67-year-old male with a past medical history of asthma, [place] office, CKD, dyslipidemia, hypertension, obstructive sleep apnea, CVA, type 2 diabetes. Presents emergency department for evaluation of left lower back pain. Atraumatic in nature. History of similar pain in the past. Resolved with use of muscle relaxer. Urinalysis reveals moderate leukocyte esterase, consistent with prior urinalysis obtained in February 2022 with urine culture having no final growth. Patient is without general urinary symptoms, do not suspect urinary tract infection at this time. urine sent for culture. At this time, Pain is most consistent with muscular pain, although cannot completely exclude herniated disc. On neurological exam there are no new deficits. Not consistent with spinal fracture, spinal infection, epidural abscess, AAA, or dissection. No high risk past medical history including incontinence, fever, immunosuppression, recent surgery or lumbar puncture, coagulopathy, significant trauma, recent unintentional weight loss, pulsatile mass, history of cancer, history of TB, history of IV drug use that would warrant MRI or CT. Not consistent with pyelonephritis, urinary tract infection, renal calculi, diverticulitis. On exam no concern for cauda equina syndrome. patient received ketorolac while in the emergency department with relief. Plan for discharge home with New prescription for cyclobenzaprine, reviewed worrisome signs and symptoms to return back to emergency department for, and follow-up with primary care provider outpatient, and patient agreed with plan. MDM - Back Pain/Injury Medical Records Attestation: I reviewed the patient's medical records. Lab Data Attestation: I reviewed the patient's lab results. Labs: Lab Results 04/02/22 Range/Units 13:12 Urine Color Dark Yellow Urine Appearance Clear Urine pH 5.0 (5.0-9.0) Ur Specific [place] >= 1.030 H (1.005-1.025) Urine Protein 30 (1+) H (Neg-Trace) mg/dL Urine Glucose (UA) Negative (Negative) mg/dL Urine Ketones 15 (Negative) mg/dL Urine Blood Negative (Negative) Urine Nitrite Negative (Negative) Ur Leukocyte Esterase Moderate (2+) H (Negative) Urine RBC 0-2 (0-2) /HPF Urine WBC 21-50 H (0-5) /HPF Ur Squamous Epith Cells 3-5 (0-2) /HPF Calcium Oxalate Crystal Present Urine Bacteria None Seen (None Seen) Hyaline Casts >20 (0-2) /LPF Discharge Plan Discharge Clinical Impression: Lumbar strain Patient Disposition: Home, Self-Care Instructions: Low Back Strain (ED), Lower Back Exercises (ED) Additional Instructions: Be sure to rest over the next few days. You may alternate between topical ice/ heat whichever provides him more comfort throughout the day 10-15 minutes at a time. Engage in gentle stretching /lower back exercises You have been given a prescription for cyclobenzaprine, this is a muscle relaxant. It may make you drowsy. You should not drive, operate machinery, or drink alcohol while taking this medication. Please contact your primary care provider to arrange for a follow-up visit within 1 week. Return to emergency department with any new or worsening symptoms or concerns. Prescriptions: New cyclobenzaprine 10 mg tablet 10 mg PO BEDTIME PRN (Reason: muscle spasm) 14 Days Qty: 14 0RF No Action colchicine 0.6 mg tablet 0.6 mg PO DAILY PRN (Reason: gout) 30 Days Qty: 30 0RF (DME) OneTouch Ultra Blue Test Strip Strip See Rx Instructions .ROUTE .MEDSUPPLY Qty: 100 2RF Rx Instructions: BID once in the am..... then one other time throughout the day (either before lunch/dinner, or 2 hrs after lunch or dinner, or at bedtime) (DME) lancets [OneTouch UltraSoft Lancets] [facility] See Rx Instructions .ROUTE .MEDSUPPLY Qty: 100 2RF Rx Instructions: BID once in the am..... then one other time throughout the day (either before lunch/dinner, or 2 hrs after lunch or dinner, or at bedtime) omega-3 acid ethyl esters 1 gram capsule 2 cap PO BID 30 Days Qty: 120 3RF (DME) insulin syringe-needle U-100 [BD Insulin Syringe Ultra-Fine] 0.3 mL 31 gauge x 5/16 syringe See Rx Instructions .ROUTE .MEDSUPPLY Qty: 100 0RF Rx Instructions: Use with Lantus for evening dose subcutaneous injection (DME) blood-glucose meter [OneTouch Ultra2 Meter] [facility] See Rx Instructions .ROUTE .MEDSUPPLY Qty: 1 0RF Rx Instructions: Use to check blood sugar in morning and one other time during the day.(either before lunch/dinner, or 2 hrs after lunch or dinner, or at bedtime) atorvastatin 80 mg tablet 80 mg PO DAILY 90 Days Qty: 90 2RF insulin glargine [Lantus U-100 Insulin] 100 unit/mL solution 21 unit subcut QPM 90 Days Qty: 18.9 3RF metformin 1,000 mg tablet 1,000 mg PO BID Qty: 180 0RF pantoprazole 40 mg tablet,delayed release (DR/EC) 40 mg PO DAILY Qty: 90 0RF sulfamethoxazole-trimethoprim [Bactrim DS] 800-160 mg tablet 1 tab PO BID 4 Days Qty: 8 0RF amlodipine 10 mg tablet 10 mg PO DAILY Qty: 90 0RF losartan 100 mg tablet 100 mg PO DAILY hydrochlorothiazide 12.5 mg capsule 12.5 mg PO QAM Fluad Quad 2019-(65y up)(PF) 60 mcg (15 mcg x 4)/0.5 mL syringe IM aspirin 81 mg tablet,delayed release (DR/EC) 81 mg PO DAILY coenzyme Q10 [Co Q-10] 100 mg capsule 100 mg PO DAILY fexofenadine [Lesli Allergy] 180 mg tablet 180 mg PO Q24H Align 4 mg capsule 4 mg PO DAILY [id number]-[id number] Tablet 1 tab PO DAILY ascorbate calcium (vitamin C) 500 mg tablet 1,000 mg PO DAILY indomethacin 50 mg capsule 50 mg PO Q8H diclofenac sodium 3 % gel 1 appl topical BID 7 Days Qty: 100 0RF cyclobenzaprine 10 mg tablet 10 mg PO BEDTIME Qty: 14 0RF meloxicam 15 mg tablet 15 mg PO DAILY Qty: 14 0RF Interventions: ED Discharge Assessment Last Done: 04/02/22 14:36 Discharge Date/Time: 04/02/22 14:36
[2022-04-02] MEDS: Ketorolac Tromethamine 60 MG/2 ML VIAL IM (13:41)
[2022-04-02 13:56] LABS: Bacteria Urine None Seen (None Seen); Calcium Oxalate Crystals Urine Present; Hyaline Casts Urine >20 /LPF (0-2); RBC Urine 0-2 /HPF (0-2); UACC Culture Trigger YES; WBC Urine 21-50 /HPF (0-5)
== END 2022-04-02 14:36 | disposition home or self-care (01) ==
PROVIDERS: Emergency Provider Internal Medicine; PCP Nurse Practitioner Family
DX: S39.012A Strain of muscle, fascia and tendon of lower back, initial encounter (principal); X58.XXXA Exposure to other specified factors, initial encounter; E11.22 Type 2 diabetes mellitus with diabetic chronic kidney disease; I12.9 Hypertensive chronic kidney disease with stage 1 through stage 4 chronic kidney disease, or unspecified chronic kidney disease; N18.9 Chronic kidney disease, unspecified; Z86.73 Personal history of transient ischemic attack (TIA), and cerebral infarction without residual deficits; Z79.4 Long term (current) use of insulin; Z79.899 Other long term (current) drug therapy; Z79.02 Long term (current) use of antithrombotics/antiplatelets; Y93.9 Activity, unspecified; Y92.9 Unspecified place or not applicable; Y99.9 Unspecified external cause status
CPT/HCPCS: 81001; 87086; 96372; 99283; 99284; J1885

== ENCOUNTER 2022-04-06 08:04 | Outpatient (REF) | payer MEDICARE, SELFPAY ==
[2022-04-06 11:21] LABS: Appearance Urine Clear; Color Urine Yellow; Glucose Urine UA Negative (Negative); Leukocyte Esterase Urine Small (1+) (Negative); Nitrite Urine Negative (Negative); PH 5.5 (5.0-9.0); UMIC TRIGGER UA YES; Urine Blood Negative (Negative); Urine Ketones Negative (Negative); Urine Protein Negative (Neg-Trace)
[2022-04-06 11:26] LABS: Bacteria Urine None Seen (None Seen); Hyaline Casts Urine 0-2 /LPF (0-2); RBC Urine 0-2 /HPF (0-2); Squamous Epithelial Cell Urine 0-2 /HPF (0-2)
== END 2022-04-06 08:05 | disposition home or self-care (01) ==
LOC: HO.HMGCLDS 08:04
PROVIDERS: PCP Nurse Practitioner Family; Visit Provider Nurse Practitioner Family
DX: M54.50 Low back pain, unspecified (principal); G89.29 Other chronic pain
CPT/HCPCS: 81001; 87086

== ENCOUNTER 2022-05-25 09:47 | Outpatient (REF) | payer MEDICARE, SELFPAY ==
[2022-05-25 11:01] LABS: Hematocrit 44.4 % (42.0-52.0); Hemoglobin 14.9 g/dl (14.0-18.0); Mean Corpuscular HGB Conc 33.6 g/dl (31.0-36.0); Mean Corpuscular Hemoglobin 29.4 pg (27.0-33.0); Mean Corpuscular Volume 87.7 fL (80.0-98.0); Mean Platelet Volume 10.4 fL (9.4-12.4); Platelet Count 245 X10*3/uL (160-400); Red Blood Count 5.06 X10*6/uL (4.60-5.80); Red Cell Distribution Width 13.9 % (11.0-16.0); White Blood Count 7.6 X10*3/uL (4.8-10.8)
[2022-05-25 11:47] LABS: Alanine Aminotransferase 30 U/L (0-40); Albumin Level 4.4 g/dL (3.5-5.0); Alkaline Phosphatase 135 U/L (39-117); Anion Gap 18 (12-20); Aspartate Amino Transferase 26 U/L (5-37); Bilirubin Direct 0.3 mg/dL (0.0-0.5); Bilirubin Total 0.8 mg/dL (0.0-1.0); Blood Urea Nitrogen 15 mg/dL (9-16); Calcium 9.5 mg/dL (8.4-10.2); Carbon Dioxide 25 mmol/L (22-29); Chloride 105 mmol/L (96-108); Estimated Glomerular Filt Rate > 60; Glucose Random 82 mg/dL (60-115); Potassium 4.1 mmol/L (3.3-5.1); Sodium 144 mmol/L (135-145); Total Protein 7.6 g/dL (6.5-8.0)
[2022-05-25 12:14] LABS: Folate 17.2 ng/mL (> or = 4.0); Vitamin B12 411 pg/mL (200-900)
[2022-05-25 12:15] LABS: Syphilis Screen Nonreactive (Nonreactive)
[2022-05-27 10:07] LABS: Lyme Abs Screen <0.90 index
[2022-05-30 13:17] LABS: IgA 291 mg/dL (70-320); IgG 1169 mg/dL (600-1540); IgM 56 mg/dL (50-300)
== END 2022-05-25 09:48 | disposition home or self-care (01) ==
LOC: HO.LAB 09:47
PROVIDERS: PCP Nurse Practitioner Family; Visit Provider Psychiatry & Neurology Neurology
DX: G12.21 Amyotrophic lateral sclerosis (principal)
CPT/HCPCS: 36415; 80048; 80076; 82607; 82746; 82784; 85027; 86334; 86617; 86618; 86780

== ENCOUNTER 2022-08-02 09:23 | Outpatient (REF) | payer MEDICARE, SELFPAY ==
[2022-08-02 14:19] LABS: Alanine Aminotransferase 26 U/L (0-40); Albumin Level 4.1 g/dL (3.5-5.0); Alkaline Phosphatase 112 U/L (39-117); Anion Gap 11 (12-20); Aspartate Amino Transferase 19 U/L (5-37); Bilirubin Total 0.9 mg/dL (0.0-1.0); Blood Urea Nitrogen 23 mg/dL (9-16); Calcium 9.6 mg/dL (8.4-10.2); Carbon Dioxide 30 mmol/L (22-29); Chloride 108 mmol/L (96-108); Estimated Glomerular Filt Rate > 60; Glucose Random 115 mg/dL (60-115); Potassium 4.2 mmol/L (3.3-5.1); Sodium 145 mmol/L (135-145); Total Protein 6.9 g/dL (6.5-8.0)
== END 2022-08-02 09:24 | disposition home or self-care (01) ==
LOC: HO.HMGCLDS 09:23
PROVIDERS: PCP Nurse Practitioner Family; Visit Provider Nurse Practitioner Family
DX: R31.9 Hematuria, unspecified (principal)
CPT/HCPCS: 36415; 80053

== ENCOUNTER 2022-08-03 14:10 | Outpatient (REF) | payer MEDICARE, SELFPAY ==
--- NOTE | ~2022-08-03 | CT_ITS ---
EXAMINATION: CT ABDOMEN AND PELVIS WITHOUT AND WITH CONTRAST CLINICAL INFORMATION: Hematuria. COMPARISON: None TECHNIQUE: Multidetector volumetric imaging was performed of the abdomen and pelvis before and after the IV administration of 85 mL of Omnipaque 350 intravenous contrast. Sagittal and coronal reformatted images were obtained on the technologist's workstation. This CT examination was performed using dose optimization techniques as appropriate, variously including the following: *Automated exposure control *Adjustment of mA and/or kV according to patient size (this includes techniques or standardized protocols for targeted exams where dose is matched to indication/reason for exam; i.e. extremities or head) *Use of iterative reconstruction technique DLP: 1546 mGy-cm FINDINGS: LUNG BASES: The visualized lung bases are unremarkable. LIVER, GALLBLADDER, AND BILIARY TREE: The liver is normal in size, shape, and attenuation. No focal hepatic lesion or biliary ductal dilatation is present. The gallbladder is unremarkable with no evidence of radiopaque gallstones, gallbladder wall thickening, or obvious pericholecystic inflammatory changes. PANCREAS: Unremarkable SPLEEN: Unremarkable ADRENAL GLANDS: Unremarkable KIDNEYS AND URETERS: The kidneys are normal in size, shape, and attenuation. No hydronephrosis, hydroureter, or calculi seen. No perinephric stranding. BLADDER: Unremarkable GASTROINTESTINAL TRACT: No acute abnormality. There is no bowel wall thickening /edema. There is no bowel obstruction. There is a moderate volume of stool in the colon. The appendix is nonvisualized . No inflammatory change of the mesentery. The small bowel loops are unremarkable. The stomach is normal. There is no hiatal hernia. ABDOMINAL WALL: No significant hernia is appreciated. LYMPH NODES: Normal VASCULAR: Atherosclerotic vascular calcifications of aorta and iliac arteries. PELVIC VISCERA: Prostate measures 6.3 cm transverse. Coarse calcifications within the prostate. OSSEOUS STRUCTURES: Multilevel degenerative spondylosis spine. Vacuum disc phenomenon at the lower [address]/CT abdomen pelvis wo/w IV con IMPRESSION: 1. No acute abnormality CT scan abdomen pelvis. Normal kidneys, ureter and bladder. 2. Prostatomegaly. Fleischner guidelines were followed.
[2022-08-03] MEDS: iohexoL 350 MG/ML 100 ML INFUS..BTL IV (15:10)
== END 2022-08-03 14:11 | disposition home or self-care (01) ==
LOC: HO.CT 14:10
PROVIDERS: PCP Nurse Practitioner Family; Visit Provider Nurse Practitioner Family
DX: R31.9 Hematuria, unspecified (principal)
CPT/HCPCS: 74178; Q9967

== ENCOUNTER 2022-08-30 10:43 | Outpatient (REF) | payer MEDICARE, SELFPAY ==
[2022-08-30 16:21] LABS: Urine Cytology See Pathology rpt
== END 2022-08-30 10:44 | disposition home or self-care (01) ==
LOC: HO.LAB 10:43
PROVIDERS: PCP Nurse Practitioner Family; Visit Provider Nurse Practitioner Family
DX: R32 Unspecified urinary incontinence (principal); R31.9 Hematuria, unspecified; R33.9 Retention of urine, unspecified
CPT/HCPCS: 51798; 88112; 99202

== ENCOUNTER → 2022-10-11 08:38 | Outpatient (BNVA) | payer MEDICARE, SELFPAY | PROVIDERS: PCP Nurse Practitioner Family; Visit Provider Urology | DX: N40.0 Benign prostatic hyperplasia without lower urinary tract symptoms (principal); R33.9 Retention of urine, unspecified | CPT/HCPCS: 52000; 99212 ==

== ENCOUNTER 2022-11-22 08:00 | Outpatient (REF) | payer MEDICARE, SELFPAY ==
[2022-11-22 11:21] LABS: Appearance Urine Clear; Color Urine Dark Yellow; Glucose Urine UA Negative (Negative); Leukocyte Esterase Urine Trace (Negative); Nitrite Urine Negative (Negative); Specific Gravity - Urine 1.025 (1.005-1.025); UMIC TRIGGER UACC YES; Urine Blood Negative (Negative); Urine Ketones Negative (Negative); Urine Protein Negative (Neg-Trace)
[2022-11-22 11:22] LABS: MANUAL DIFF FLAG NO
[2022-11-22 11:28] LABS: Bacteria Urine None Seen (None Seen); Hyaline Casts Urine 0-2 /LPF (0-2); RBC Urine 0-2 /HPF (0-2); Squamous Epithelial Cell Urine 0-2 /HPF (0-2); WBC Urine 0-5 /HPF (0-5)
[2022-11-22 11:31] LABS: Basophils Percent Auto 0.4 % (0-2); Eosinophils Absolute Auto 0.1 X10*3/uL (0.0-0.4); Eosinophils Percent Auto 1.8 % (0-4); Hematocrit 41.3 % (42.0-52.0); Hemoglobin 13.6 g/dl (14.0-18.0); Imm Gran Abs Auto 0.05 X10*3/uL (0.00-0.03); Imm Gran Pct Auto 0.7 % (0.0-0.4); Lymphocytes Absolute Auto 1.1 X10*3/uL (1.2-4.9); Lymphocytes Percent Auto 15.3 % (20-40); Mean Corpuscular HGB Conc 32.9 g/dl (31.0-36.0); Mean Corpuscular Hemoglobin 29.5 pg (27.0-33.0); Mean Corpuscular Volume 89.6 fL (80.0-98.0); Mean Platelet Volume 10.7 fL (9.4-12.4); Monocytes Absolute Auto 0.6 X10*3/uL (0.1-1.2); Monocytes Percent Auto 8.1 % (2-11); Neutrophils Absolute Auto 5.3 x10*3/uL (2.0-8.3); Neutrophils Percent Auto 73.7 % (45-73); Platelet Count 204 X10*3/uL (160-400); Red Blood Count 4.61 X10*6/uL (4.60-5.80); Red Cell Distribution Width 13.5 % (11.0-16.0); White Blood Count 7.2 X10*3/uL (4.8-10.8)
[2022-11-22 12:17] LABS: Estimated Average Glucose 111 mg/dL; Hemoglobin A1c % 5.5 %
[2022-11-22 13:00] LABS: Alanine Aminotransferase 27 U/L (0-40); Albumin Level 3.9 g/dL (3.5-5.0); Alkaline Phosphatase 124 U/L (39-117); Anion Gap 13 (12-20); Aspartate Amino Transferase 17 U/L (5-37); Bilirubin Total 0.8 mg/dL (0.0-1.0); Blood Urea Nitrogen 15 mg/dL (9-16); Calcium 9.1 mg/dL (8.4-10.2); Carbon Dioxide 27 mmol/L (22-29); Chloride 109 mmol/L (96-108); Cholesterol 121 mg/dL; Estimated Glomerular Filt Rate > 60; Glucose Fasting 112 mg/dL (60-99); HDL Cholesterol 37 mg/dL; LDL Cholesterol Calculated 55 mg/dl; Potassium 3.8 mmol/L (3.3-5.1); Prostate Specific Antigen Scr 1.32 ng/mL (<0.05-4.0); Sodium 145 mmol/L (135-145); TSH reflex Free T4 2.07 uIU/mL (0.32-4.0); Total Protein 6.6 g/dL (6.5-8.0); Triglycerides 146 mg/dL
== END 2022-11-22 08:01 | disposition home or self-care (01) ==
LOC: HO.HMGCLDS 08:00
PROVIDERS: PCP Nurse Practitioner Family; Visit Provider Nurse Practitioner Family
DX: Z12.5 Encounter for screening for malignant neoplasm of prostate (principal); E11.9 Type 2 diabetes mellitus without complications
CPT/HCPCS: 36415; 80053; 80061; 81001; 83036; 84153; 84443; 85025

== ENCOUNTER → 2022-12-13 08:32 | Outpatient (BNVA) | payer MEDICARE, SELFPAY | PROVIDERS: PCP Nurse Practitioner Family; Visit Provider Nurse Practitioner Family | DX: N40.1 Benign prostatic hyperplasia with lower urinary tract symptoms (principal); R33.8 Other retention of urine; R32 Unspecified urinary incontinence; Z79.899 Other long term (current) drug therapy | CPT/HCPCS: 51798; 99212 ==

== ENCOUNTER 2022-12-27 14:07 | Outpatient (REF) | payer MEDICARE, SELFPAY ==
--- NOTE | ~2022-12-27 | FL_ITS ---
EXAMINATION: XR BARIUM SWALLOW CLINICAL INFORMATION: ALS. COMPARISON: None available. TECHNIQUE/findings: Fluoroscopy guidance was provided for modified barium swallow performed by the speech and hearing department. See speech and hearing report for detailed findings. FLUOROSCOPY TIME: 0.5 minutes DOSE AREA PRODUCT: 0.787 uGy-m2 (microgray-meter squared) FL/FL barium swallow modified IMPRESSION: Fluoroscopy guidance for modified barium swallow performed by the speech and hearing department.
--- NOTE | 2022-12-30 12:44 | MHC.SL.IMP ---
Date of Plan of Treatment: 12/27/22 Onset of Symptoms/Illness: 12/19/22 Date Treatment Started: 12/27/22 Admitting Diagnosis: ALS Primary Speech & Language Diagnosis: R13.19 Other Dysphagia Secondary Speech & Language Diagnosis: Reason for Today's Visit: 07671 Modified Barium Swallow Study Comments: Pre-evaluation Dietary Consistencies: Regular Pre-evaluation Liquid Consistency: Thin Pre-evaluation Medication Administration: Whole with Liquid Medical History: Other: See below Comments: ALS [facility] Fall Risk Assessment Score: Oral Motor Exam Facial Symmetry: Normal for Patient Symmetrical Facial Movement: Oral-Facial Facial Miscellaneous Observations: Mouth Occlusion: Oral-Facial Teeth Characteristics: Oral-Facial Teeth Miscellaneous Observation: Oral-Facial Lip Pucker Description: Oral-Facial Smile (Lips) Description: Oral-Facial Puff Cheeks Description: Oral-Facial Lip Miscellaneous Comment: Tongue Size: Tongue Frenum Length: Tongue Excursion Description: Tongue Range of Movement Description: Tongue Speed of Movement Description: Tongue Strength of Movement (against opposing pressure): Tongue Movement Characteristics: Tongue Movement Miscellaneous Observation: Oral Expression Ability: Is patient able to manage secretions?: Yes Is patient able to produce volitional cough?: Yes Food and Liquid Trials: Oral Impairment: Lip Closure: 1=Interlabial escape; no progression to anterior tip Oral Impairment: Tongue Control During Bolus Hold: 0=Cohesive bolus between tongue to palatal seal Oral Impairment: Bolus Preparation/Mastication: 0=Timely and efficient chewing and mashing Oral Impairment: Bolus Transport/Lingual Motion: 1= Delayed initiation of tongue motion Oral Impairment: Oral Residue: 1=Trace residue lining oral structures Oral Impairment:Initiation of Pharyngeal Swallow: 3=Bolus head in pyriforms Pharyngeal Impairment: Soft Palate Elevation: 0=No bolus between soft palate (SP)/pharyngeal wall (PW) Pharyngeal Impairment: Laryngeal Elevation: 1=Partial thyroid cartilage/arytenoids to epiglottic petiole movement Pharyngeal Impairment: Anterior Hyoid Excursion: 1=Partial anterior movement Pharyngeal Impairment: Epiglottic Movement: 0=Complete inversion Pharyngeal Impairment: Laryngeal Vestibular Closure:: 0=Complete: no air/contrast in laryngeal vestibule Pharyngeal Impairment: Pharyngeal Stripping Wave: 0=Present: complete Pharyngeal Impairment: Pharyngeal Contraction: Did not test Pharyngeal Impairment: Pharyngoesophageal Segment Openin=Complete distension and complete duration: no obstruction of flow Pharyngeal Impairment: Tongue Base (TB) Retraction: 1=Trace column of contrast/air between TB and posterior PW Pharyngeal Impairment: Pharyngeal Residue: 1=Trace residue within or on pharyngeal structures Pharyngeal Impairment: Esophageal Clearance Upright Position: Did not test Impressions and Recommendations Clinical Observations: Modified Barium Swallow Study Fluoroscopic Evaluation of Swallowing Function CPT Code 18910 Evaluation Year: 2022 Evaluating Clinician: Noah Cesar MA, [facility] Study Number: 1 Patient Name: Age: 68 Gender: Male MEDICAL HISTORY: COVID-19 Positive: No Current (pre-evaluation) Intake/Diet: Pre-Study Functional Oral Intake Scale (FOIS): 7- Total oral intake with no restrictions MBSImP ID: [id number] Results: Lip closure for intraoral bolus containment resulted in interlabial escape, without progression to the anterior lip. Tongue control during bolus hold maintained a cohesive bolus held between tongue to palate seal. Bolus preparation and mastication resulted in timely and efficient chewing and mashing. Bolus transport/lingual motion demonstrated delayed initiation of tongue motion. Oral residue was a trace, lining oral structures. Initiation of the pharyngeal swallow occurred when the bolus head was in the pyriform sinuses. Soft palate elevation resulted in no bolus between the soft palate and the pharyngeal wall. Laryngeal elevation was decreased, with partial superior movement of the thyroid cartilage/partial approximation of the arytenoids to the epiglottic petiole. Anterior hyoid excursion demonstrated partial anterior movement. Epiglottic movement resulted in complete inversion. Laryngeal vestibular closure was complete, as indicated by no air or contrast within the laryngeal vestibule at the height of the swallow. Pharyngeal stripping wave was present and complete. Pharyngeal contraction could not be determined due to logistical reasons not related to physiologic impairment. Pharyngoesophageal segment opening demonstrated partial distension/partial duration, with partial obstruction of bolus flow. Tongue base retraction allowed a trace column of contrast or air between the retracted tongue base and the posterior pharyngeal wall. Pharyngeal residue was a trace within or on pharyngeal structures. Esophageal clearance in the upright position could not be assessed due to logistical reasons not related to physiologic impairment. Oral Impairment Score: 4 Pharyngeal Impairment Score: 3 (absence of score, component 13) Esophageal Impairment Score: --- (absence of score, component 17) Laryngeal Penetration and Aspiration: Neither penetration nor aspiration was observed in today's study with Cookie, Pudding-thick, Thin. PLAN: Intake Recommendations: Post-Study Functional Oral Intake Scale (FOIS): 7- Total oral intake with no restrictions Clinician - Supplemental, Miscellaneous Communication: Please note that MBS Studies are only snapshots in time and may not represent the patient's highest or lowest level of functioning. Liquid Intake Recommendation: Thin Liquid Intake Strategies: Unrestricted Dietary Recommendations: Regular Medication Administration: Whole with Liquid Please contact the pharmacy regarding appropriate crushable or liquid drug formulations that are available whenever modified delivery is recommended. Compensatory Strategies Recommended: Sitting Upright (90 deg) Small Bites and Sips Supervision during eating and or drinking: None Needed Recommended Treatments: Compens. Strategy Educat. Recommendation for Speech Therapy: NA:Typical Evaluation Text Comment: Frequency/Duration: Date Range for Service Requested: Timeline to reassess: [place] Officer Clinician/Clinical Fellow: No Supervisory Statement: N/A Speech Language Pathologist: Noah Cesar M.A., CCC[facility]
== END 2022-12-27 14:08 | disposition home or self-care (01) ==
LOC: HO.XRAY 14:07
PROVIDERS: PCP Nurse Practitioner Family; Visit Provider Psychiatry & Neurology Neurology
DX: G12.21 Amyotrophic lateral sclerosis (principal)
CPT/HCPCS: 74230; 92611

== ENCOUNTER 2023-01-24 08:23 | Outpatient (REF) | payer MEDICARE, SELFPAY ==
[2023-01-24 10:24] LABS: Venous Blood Gas Refer to POC result
[2023-01-24 10:30] LABS: VBG pCO2 51 mmHg; VBG pH 7.42 (7.32-7.43); VBG pO2 40 mmHg
[2023-01-24 10:31] LABS: VBG Base Excess 8.4 mmol/L; VBG HCO3 34 mmol/L (22-26)
[2023-01-24 13:00] LABS: Anion Gap 13 (12-20); Blood Urea Nitrogen 20 mg/dL (9-16); Calcium 10.3 mg/dL (8.4-10.2); Carbon Dioxide 28 mmol/L (22-29); Chloride 104 mmol/L (96-108); Estimated Glomerular Filt Rate > 60; Glucose Random 98 mg/dL (60-115); Potassium 4.1 mmol/L (3.3-5.1); Sodium 141 mmol/L (135-145)
== END 2023-01-24 08:24 | disposition home or self-care (01) ==
LOC: HO.LAB 08:23
PROVIDERS: PCP Hospitalist; Visit Provider Nurse Practitioner Family
DX: G47.33 Obstructive sleep apnea (adult) (pediatric) (principal); G12.21 Amyotrophic lateral sclerosis; N40.1 Benign prostatic hyperplasia with lower urinary tract symptoms; R39.14 Feeling of incomplete bladder emptying; R32 Unspecified urinary incontinence; Z79.82 Long term (current) use of aspirin; Z79.899 Other long term (current) drug therapy
CPT/HCPCS: 36415; 51798; 80048; 82803; 99202; 99212

== ENCOUNTER 2023-01-24 08:23 | Outpatient (AMB) | payer MEDICARE, SELFPAY ==
--- NOTE | 2023-01-24 08:20 | A.OFFVIS_ITS ---
Intake Intake Visit Reasons: 6w/PVR Intake Note: Patient is present for follow up PVR/BPH/Incomplete bladder emptying Urology Medications: d/c Doxazosin, finasteride, bethanechol Blood Thinner: Aspirin PVR: 419ml's Mica Paster Required: No Accompanied by: Son Allergies methotrexate Allergy (Unknown, Verified 01/24/23 13:19) shortness of breath cats and dogs Allergy (Unknown, Uncoded 01/24/23 13:19) Unknown Medication List - Last Reconciled 01/24/23 by KATY Welch- amlodipine 10 mg PO DAILY ascorbate calcium (vitamin C) 1,000 mg PO DAILY aspirin 81 mg PO DAILY atorvastatin 80 mg PO DAILY 90 days bethanechol chloride 50 mg PO BID 90 days Bifidobacterium infantis (Align) 4 mg PO DAILY blood sugar diagnostic ([place] Ultra Blue Test Strip) BID once in the am..... then one other time throughout the day (either before lunch/dinner, or 2 hrs after lunch or dinner, or at bedtime) blood-glucose meter (Identification International Ultra2 Meter) Use to check blood sugar in morning and one other time during the day.(either before lunch/dinner, or 2 hrs after lunch or dinner, or at bedtime) coenzyme Q10 (Co Q-10) 100 mg PO DAILY edaravone (Radicava ORS) mg PO fexofenadine (Lesli Allergy) 180 mg PO Q24H finasteride 5 mg PO DAILY gabapentin 600 mg PO TID hydrochlorothiazide 12.5 mg PO QAM 30 days insulin glargine (Lantus U-100 Insulin) 21 units (0.21 mL) subcut QPM 90 days insulin syringe-needle U-100 (BD Insulin Syringe Ultra-Fine) Use with Lantus for evening dose subcutaneous injection lancets ([place] UltraSoft Lancets) BID once in the am..... then one other time throughout the day (either before lunch/dinner, or 2 hrs after lunch or dinner, or at bedtime) losartan 50 mg PO DAILY metformin 500 mg (1/2 x 1,000 mg) PO BID nuedwiktelwk-lkbipcdv-pvsoeb 1 tab PO DAILY naproxen 500 mg PO Q12H PRN pantoprazole 40 mg PO DAILY [Right Ankle Foot Orthosis As directed] riluzole 50 mg PO BID sertraline 50 mg PO DAILY tramadol 50 mg PO BID PRN 10 days HPI HPI Comments History of Present Illness Details Guero is a pleasant 67 year old male patient of Dr. Izaguirre who was accompanied by his son at today's visit. He presents to the office today for follow-up of his lower urinary tract symptoms and history of hematuria. He has a past medical history significant for diabetes, os teoarthritis of the hip, current right shoulder fracture, and newly diagnosed with ALS (amyotrophic lateral sclerosis).?Of note, patient was seen approximately 6 weeks ago at which time he was started on bethanechol due to incomplete bladder emptying. Cystoscopy was performed approximately [address] Raines and noted to be normal. He was switched from tamsulosin and bethanechol to 5 mg of finasteride and 4 mg of doxazosin at bedtime. However, at last follow up PVR was noted to be elevated and patient was restarted on bethanechol the mg b.i.d.. He remains on finasteride 5 mg daily. In office PVR today 419 mL. Discussed again CIC for incomplete bladder emptying. Patient is agreeable however due to decreased mobility the of lower and upper extremities patient's will be assisting with CIC. Plan will be to have patient, and patient's , and patient's son to return for teaching of CIC. In office urinalysis results reviewed with the patient and his son today. Discussed at length potential causes for incomplete bladder emptying as well as affects of incomplete bladder emptying. When asked patient denies urinary urgency, urinary frequency, nocturia, hematuria, dysuria, foul smelling urine, flank pain, fever, and or chills. Discussed importance of timed voiding given decreased mobility with progressive ALS. Patient discusses having another appointment today with pulmonology for further testing. He otherwise offers no issues or concerns at this time. 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 PSA 08/06 1.6, 03/07 2.0 Imaging - 08/08 CT scan 6.3 cm prostate coarse calcifications, no upper tract pathology Cytology - 10/06 atypical PFSH Medical History Asthma Romero esophagus CKD (chronic kidney disease) Dyslipidemia HTN (hypertension) ANTONIA (obstructive sleep apnea) Plaque psoriasis Stroke Trochanteric bursitis, left hip Type 2 diabetes mellitus Surgical History History of left knee replacement History of left knee surgery Hx of appendectomy Hx of tonsillectomy Family History Father Diabetes Mother Diabetes Cancer Brother Bladder cancer Social History Housing: House Alcohol intake: never Patient Tobacco Use Status: Never used Tobacco e-Cigarette/Vaping Use: Never Used Second Hand Smoke Exposure: No Advance Directives Date on File: 12/23/20 Current occupational status: retired Current occupation: right handed Cognitive needs: Yes (walker) Hearing needs: No Vision needs: Yes (glasses) Review of Systems Const Reports as per HPI Eyes Reports no additional complaints ENT Reports no additional complaints Card Reports no additional complaints Resp Reports no additional complaints GI Reports no additional complaints Reports as per HPI Musc Reports as per HPI Neuro Reports as per HPI Psych Reports no additional complaints Endo Reports as per HPI Mansoor/Lymph Reports no additional complaints Aller/Immun Reports no additional complaints Physical Exam Const General: cooperative, comfortable, no acute distress, well developed, alert and awake Nutritional Appearance: overweight Orientation/consciousness: patient oriented x3 Limitations: wheelchair HEENT Head: Yes normal to inspection, Yes normocephalic and Yes atraumatic Ears: hearing grossly normal bilaterally Eyes General: appearance normal, both eyes and all related structures Neck Neck: Yes normal visual inspection and Yes trachea midline Chest Chest palpation & inspection: normal inspection of the chest Resp Effort & Inspection: normal respiratory effort and able to speak in complete sentences Cardio Rate: regular rate GI Inspection: Yes normal to inspection and Yes Abdominal panniculus present General: Yes no CVA tenderness Back/Spine/Pelvis Back: no CVA tenderness Neuro General: patient oriented x3 Psych Appearance: grossly normal and well kempt Mental Status: mental status grossly normal Speech and movement: Clear speech present Affect: normal affect Attitude: cooperative Thought process: Normal thought process present Thought content: Normal thought content present Insight: Fair insight present (Psych) Judgement: Fair judgement present (Psych) Office Procedures Post Void Residual Post Residual Void Post Void Residual (PVR): 419 [id number] Void Residual by ultrasound Results AMB Urinalysis, Automated UA Leukoctes 15 Carey/uL Last Edit by [employer] Nunez on 01/24/23 08:41 UA Nitrite Negative Last Edit by [employer]casandra on 01/24/23 08:41 UA Urobilinogen 0.2 mg/dL Last Edit by VULCUN on 01/24/23 08:41 UA Protein 0 mg/dL Last Edit by VULCUN on 01/24/23 08:41 UA pH 5.5 Last Edit by VULCUN on 01/24/23 08:41 UA Blood 0 William/uL Last Edit by VULCUN on 01/24/23 08:41 UA Specific [place] 1.025 Last Edit by VULCUN on 01/24/23 08:41 UA Ketone Negative Last Edit by VULCUN on 01/24/23 08:41 UA Bilirubin 0 mg/dL Last Edit by VULCUN on 01/24/23 08:41 UA Glucose 0 mg/dL Last Edit by VULCUN on 01/24/23 08:41 Results Reviewed Results Reviewed: Laboratory Last Values Urine pH (Auto) 5.5 01/24/23 08:22 Specific [place] (Auto) 1.025 01/24/23 08:22 Urine Protein (Auto) 0 mg/dL 01/24/23 08:22 Glucose (UA)(Auto) 0 mg/dL 01/24/23 08:22 Urine Ketones (Auto) Negative 01/24/23 08:22 Urine Blood (Auto) 0 William/uL 01/24/23 08:22 Urine Nitrite (Auto) Negative 01/24/23 08:22 Urine Bilirubin (Auto) 0 mg/dL 01/24/23 08:22 Urine Urobilinogen (Auto) 0.2 mg/dL 01/24/23 08:22 Leukocyte Esterase (Auto) 15 Carey/uL 01/24/23 08:22 Assessment & Plan Assessment & Plan (1) Incomplete bladder emptying: Code(s): R33.9 - Retention of urine, unspecified (2) Enlarged prostate: Code(s): N40.0 - Benign prostatic hyperplasia without lower urinary tract symptoms (3) Urinary incontinence: Code(s): R32 - Unspecified urinary incontinence Plan In office urinalysis results reviewed with the patient and his son today; as noted above PVR; 419ml's Discussed CIC for incomplete bladder emptying; patient will return for nurse visit for Education regarding CIC with as she did not attend today's appointment with the patient and will be assisting with CIC Discussed at length potential causes for incomplete bladder emptying as well as affects of incomplete bladder emptying Discussed timed voiding to decrease episodes of incontinence due to decreased mobility in the setting of progressive ALS. Continue finasteride and bethanechol as discussed and prescribed. Follow-up nurse visit for CIC teaching with jeremiah and nurse. Follow up in 1-2 months for office visit; or sooner with any issues, concerns, and or questions. Orders: Orders AMB Urinalysis Automated Today Z13.9 - Encounter for screening, unspecified AMB Post Void Residual by ultrasound Today R33.9 - Retention of urine, unspecified Patient Instructions: The patient had an opportunity to ask questions regarding the treatment plan. All questions were answered. Physical exam, labs, and imaging were discussed and reviewed in detail. As well as risks, benefits, and discussion of treatment choices. No major barriers to understanding were identified. The patient expressed understanding and agreement with the above treatment plan. The patient was made aware they should contact our office by phone for worsening of their current condition, the appearance of new symptoms, or with any questions or concerns. Compliance is encouraged with any medications and follow up testing that is ordered. It is a privilege to be allowed the opportunity to participate in? your urological care.? Again, if you have any questions or concerns If you have any questions or concerns please do not hesitate to contact me. The office is [phone]. This note is constructed using voice recognition software. While every effort has been made to ensure accuracy exhibition designer errors may have been included. Yours sincerely, JAN Welch Coding Level of Care Code Est Pt Level 3 (60729) Diagnoses Incomplete bladder emptying R33.9 Enlarged prostate N40.0 Urinary incontinence R32 CPT Codes Post Residual Void - PVR CPT Code: 21551-Tpro Void Residual by ultrasound ([id number])
== END 2023-01-24 09:09 | disposition home or self-care (01) ==
PROVIDERS: Visit Provider Nurse Practitioner Family
DX: R33.9 Retention of urine, unspecified (principal); N40.0 Benign prostatic hyperplasia without lower urinary tract symptoms; R32 Unspecified urinary incontinence
CPT/HCPCS: 99213

== ENCOUNTER 2023-01-24 09:17 | Outpatient (AMB) | payer MEDICARE, SELFPAY ==
--- NOTE | 2023-01-24 09:24 | A.OFFVIS_ITS ---
Intake Vital Signs 01/24/23 09:27 Height 5 ft 10 in Weight 278 lb BMI 39.9 BP 120/70 Blood Pressure Location Lt brachial Position Sitting Pulse 67 Pulse Source Pulse Oximeter Pulse Oximetry (%) 95 Oxygen Delivery Method Room Air Intake Visit Reasons: [employer] Professor Required: No Allergies methotrexate Allergy (Unknown, Verified 01/24/23 13:19) shortness of breath cats and dogs Allergy (Unknown, Uncoded 01/24/23 13:19) Unknown HPI HPI Comments History of Present Illness Details The patient is here for pulmonary evaluation. The patient is a 67-year-old gentleman with a known history of obstructive sleep apnea on CPAP who apparently has been developing worsening weakness. Primarily on the right side. He was evaluated by Neurology they were referred to a tertiary center where he was confirmed to have ALS. The patient does not have any respiratory complaints at this time. He still has a strong cough. Denies any choking on his foods. It is mainly the extremity weakness that limits him. Again right more than left. In the meantime the patient has been struggling with CPAP. The mask fitting is not good for him since he cannot get the old mask that he used to get before because is now up sleep. I did have an ex 30 I mask available that I did fit him for he did well with. I did call his [employer] company, [employer] and he is on her active with them. Therefore, the patient is not getting supplies regularly. In the meantime with now it diagnosis of acute lateral sclerosis the patient needs to be assess for evidence of any respiratory failure. I will go ahead and request pulmonary function studies to assess for any restriction and also a blood gas to assess for hypercarbia. If the patient has any evidence of hypercarbia then a noninvasive ventilator will be more effective for him in view of his neurological progressive disease that will result and further respiratory failure. [facility] Medical History (Updated 01/24/23 @ 21:52 by Blu Franklin MD) Asthma Romero esophagus CKD (chronic kidney disease) Dyslipidemia HTN (hypertension) ANTONIA (obstructive sleep apnea) Plaque psoriasis Stroke Trochanteric bursitis, left hip Type 2 diabetes mellitus Surgical History History of left knee replacement History of left knee surgery Hx of appendectomy Hx of tonsillectomy Family History Father Diabetes Mother Diabetes Cancer Brother Bladder cancer Social History Housing: House Alcohol intake: never Patient Tobacco Use Status: Never used Tobacco e-Cigarette/Vaping Use: Never Used Second Hand Smoke Exposure: No Advance Directives Date on File: 12/23/20 Current occupational status: retired Current occupation: right handed Cognitive needs: Yes (walker) Hearing needs: No Vision needs: Yes (glasses) Review of Systems Const Reports daytime sleepiness, Denies fever(s), Reports snoring and Reports weakness Eyes Denies change in vision ENT Denies change in voice and Denies dysphagia Card Denies chest pain, Denies dyspnea and Reports dyspnea on exertion Resp Denies cough, Denies dyspnea, Reports dyspnea on exertion, Reports snoring and Denies wheezing GI Denies dysphagia Musc Reports muscle weakness Skin/Breast Denies rash Neuro Reports as per HPI, Reports tremor(s) and Reports weakness Mansoor/Lymph Denies easy bleeding Aller/Immun Denies wheezing Physical Exam Vital Signs: Last Vital Signs Pulse 67 01/24/23 09:27 BP 120/70 01/24/23 09:27 Pulse Ox 95 01/24/23 09:27 Oxygen Delivery Method Room Air 01/24/23 09:27 BMI result Body Mass Index 39.9 Const General: comfortable HEENT Head: Yes atraumatic Neck Neck: Yes trachea midline and Yes supple Chest Chest palpation & inspection: normal inspection of the chest Resp Effort & Inspection: normal respiratory effort Auscultation: diminished lung sounds Cardio Rate: regular rate Rhythm: regular rhythm Heart sounds: S1 normal heart sound present and S2 normal heart sound present GI Palpation (GI): Soft to palpation Skin General skin exam: no rashes or lesions noted Extrem General: Yes no clubbing, cyanosis or edema Results AMB Urinalysis, Automated UA Leukoctes 15 Carey/uL Last Edit by Vince Nunez on 01/24/23 08:41 UA Nitrite Negative Last Edit by Vince Nunez on 01/24/23 08:41 UA Urobilinogen 0.2 mg/dL Last Edit by Vince Nunez on 01/24/23 08:41 UA Protein 0 mg/dL Last Edit by Vince Nunez on 01/24/23 08:41 UA pH 5.5 Last Edit by Vince Nunez on 01/24/23 08:41 UA Blood 0 William/uL Last Edit by Vince Nunez on 01/24/23 08:41 UA Specific [place] 1.025 Last Edit by Vince Nunez on 01/24/23 08:41 UA Ketone Negative Last Edit by Vince Nunez on 01/24/23 08:41 UA Bilirubin 0 mg/dL Last Edit by Vince Nunez on 01/24/23 08:41 UA Glucose 0 mg/dL Last Edit by Vince Nunez on 01/24/23 08:41 Assessment & Plan Assessment & Plan (1) ALS (amyotrophic lateral sclerosis): Code(s): G12.21 - Amyotrophic lateral sclerosis (2) ANTONIA (obstructive sleep apnea): Code(s): G47.33 - Obstructive sleep apnea (adult) (pediatric) Plan Provided F30i mask, small will restart APAP for now Bloodwork and blood gas, to assess for need for non invasive ventilator. With the progressive neurological condition she will need an NIV with a mouth piece. PFTs CXR F/U 6-8 weeks and will bring CPAP Orders: Orders Basic Metabolic Panel Today G12.21 - Amyotrophic lateral sclerosis Venous Blood Gas Today G12.21 - Amyotrophic lateral sclerosis PFT pulmonary function test Today G12.21 - Amyotrophic lateral sclerosis XR chest 2V Today G12.21 - Amyotrophic lateral sclerosis Coding Level of Care Code New Pt Level 4 (08022) Diagnoses ALS (amyotrophic lateral sclerosis) G12.21 ANTONIA (obstructive sleep apnea) G47.33 Time Spent (min) 40
[2023-01-24 09:27] VITALS: BP 120/70; PULSE 67; O2SAT 95; BMI 39.9
== END 2023-01-24 09:53 | disposition home or self-care (01) ==
PROVIDERS: PCP Nurse Practitioner Family; Visit Provider Hospitalist
DX: G12.21 Amyotrophic lateral sclerosis (principal); G47.33 Obstructive sleep apnea (adult) (pediatric)
CPT/HCPCS: 99204

== ENCOUNTER 2023-02-16 13:16 | Outpatient (AMB) | payer MEDICARE, SELFPAY ==
--- NOTE | 2023-02-16 13:17 | A.OFFPC_ITS ---
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 ([phone]) Allergies methotrexate Allergy (Unknown, Verified 02/16/23 13:18) shortness of breath cats and dogs Allergy (Unknown, Uncoded 02/16/23 13:18) Unknown Tobacco use date assessed: 02/16/23 Fall risk assessment: 2 + Falls in past year Last assessed Fall Risk: 02/16/23 Dental Screening Dental Screen Date: 02/16/23 Did you have a dental visit in the last 12 months?: Yes Did you have a dental problem in the last 6 months where you did not have access to dental care?: No Was dental information given to patient?: Patient has dentist HPI 3m telehealth/couldn't do 7am ([phone]) HPI Details Pt is a diabetic, on an ARB and a statin. Last A1c was 5.5, due for repeat. Due for microalbumin in the near future. Denies polyuria, polydipsia, and neuropathy. Pt denies any signs and symptoms of hypoglycemia and does know how to correct it. Pt reports that his blood sugar has been around the 160s. Pt reports increased moodiness and would like his sertraline increased. Will increase from 50mg to 100mg. Denies any SI and HI. Pt is following up with neurology due to ALS. He is also following up with pulmonology. Pt recently had a swallow study that he reports was normal. [facility] Medical History (Updated 01/24/23 @ 21:52 by Blu Franklin MD) Asthma Romero esophagus CKD (chronic kidney disease) Dyslipidemia HTN (hypertension) ANTONIA (obstructive sleep apnea) Plaque psoriasis Stroke Trochanteric bursitis, left hip Type 2 diabetes mellitus Surgical History History of left knee replacement History of left knee surgery Hx of appendectomy Hx of tonsillectomy Family History Father Diabetes Mother Diabetes Cancer Brother Bladder cancer Social History Housing: House Alcohol intake: never Patient Tobacco Use Status: Never used Tobacco e-Cigarette/Vaping Use: Never Used Second Hand Smoke Exposure: No Advance Directives Date on File: 12/23/20 Current occupational status: retired Current occupation: right handed Cognitive needs: Yes (walker) Hearing needs: No Vision needs: Yes (glasses) Questionnaire Thrive Questionnaire Date Thrive assessed: 01/13/21 AUDIT C Alcohol Use Questionnaire (AUDIT-C) 1. How often do you have a drink containing alcohol?: Never 3. How often do you have six or more drinks on one occasion?: Never Total Score: 0 YUMIKO-7 AMB Questionnaire YUMIKO-7 Date YUMIKO - 7 assessed: 11/24/21 Feeling nervous, anxious, or on edge: 1 = Several days Not being able to stop or control worryin = Several days Worrying too much about different things: 1 = Several days Trouble relaxin = Several days Being so restless that it is hard to sit still: 1 = Several days Becoming easily annoyed or irritable: 1 = Several days Feeling afraid as if something awful might happen: 1 = Several days Total YUMIKO-7 score (0-4 normal; 5-9 mild; 10-14 moderate; 15-21 severe): 7 Source: Developed by Drs. Juice Samaniego, Mercy Kimble, Eliseo Mccollum and colleagues, with an educational kevin from [employer]. Review of Systems Const Reports as per HPI Physical exam (Primary Care) Tobacco/Smoking Status: Tobacco use Status Tobacco use date assessed 02/16/23 02/16/23 13:21 Patient Tobacco Use Status Never used Tobacco 02/16/23 13:17 e-Cigarette/Vaping Use Never Used 02/16/23 13:17 Thrive Assessment: Date of Thrive Assessment Date Thrive assessed 01/13/21 02/16/23 13:17 Const General: cooperative Orientation/consciousness: patient oriented x3 Neuro General: patient oriented x3 Psych Mental Status: mental status grossly normal Speech and movement: Clear speech present Affect: normal affect Attitude: cooperative Thought process: Normal thought process present Thought content: Normal thought content present Insight: Good insight present (Psych) Judgement: Good judgement present (Psych) Telehealth Telehealth Location of provider rendering services: practice address Location of patient: address on file Patient Identification confirmed using: Name, : Yes Telehealth method: voice only Patient verbally consented to treatment: Yes Patient verbally consented to billing insurance company: Yes Patient informed of any privacy concerns related to visit: Yes Minutes spent on Phone/Video with Pt.: 10 Assessment and Plan Assessment & Plan (1) Type 2 diabetes mellitus: Code(s): E11.9 - Type 2 diabetes mellitus without complications Plan: Labs ordered (2) Diabetes mellitus: Code(s): E11.9 - Type 2 diabetes mellitus without complications (3) ALS (amyotrophic lateral sclerosis): Code(s): G12.21 - Amyotrophic lateral sclerosis Plan The patient agreed to the use of a medical assistant secretary for this encounter. Scribed for JAN Rasheed by Alie Pittman medical assistant secretary, on 02/16/2023 at 13:30 EST. Orders: Orders Comprehensive [place]. Panel Fast Today E11.9 - Type 2 diabetes mellitus without complications Hemoglobin A1c Today E11.9 - Type 2 diabetes mellitus without complications Lipid Panel Today E11.9 - Type 2 diabetes mellitus without complications TSH reflex Free T4 Today E11.9 - Type 2 diabetes mellitus without complications Microalbumin, Random (w Creat) Today E11.9 - Type 2 diabetes mellitus without complications Complete Blood Count Auto Diff Today E11.9 - Type 2 diabetes mellitus without complications UA CC w/rflx Micro + Cult Today E11.9 - Type 2 diabetes mellitus without complications Medications: Changed From sertraline 50 mg PO DAILY 30 tabs 4RF To sertraline 100 mg PO DAILY 90 tabs 2RF Coding Level of Care Code Tele Est Pt Level 3 (58047) Diagnoses Type 2 diabetes mellitus E11.9 Diabetes mellitus E11.9 ALS (amyotrophic lateral sclerosis) G12.21
== END 2023-02-16 14:17 | disposition home or self-care (01) ==
LOC: HO.HMGC 13:16
PROVIDERS: PCP Nurse Practitioner Family; Visit Provider Nurse Practitioner Family
DX: E11.9 Type 2 diabetes mellitus without complications (principal); G12.21 Amyotrophic lateral sclerosis
CPT/HCPCS: 99441

== ENCOUNTER 2023-02-23 09:55 | Outpatient (REF) | payer MEDICARE, SELFPAY ==
[2023-02-23 11:12] LABS: Anion Gap 15 (12-20); Blood Urea Nitrogen 13 mg/dL (9-16); Calcium 9.5 mg/dL (8.4-10.2); Carbon Dioxide 26 mmol/L (22-29); Chloride 105 mmol/L (96-108); Estimated Glomerular Filt Rate > 60; Potassium 3.9 mmol/L (3.3-5.1); Sodium 142 mmol/L (135-145)
== END 2023-02-23 09:56 | disposition home or self-care (01) ==
LOC: HO.LAB 09:55
PROVIDERS: Visit Provider Internal Medicine Nephrology
DX: Z13.89 Encounter for screening for other disorder (principal)
CPT/HCPCS: 36415; 80051; 82310; 82565; 84520

== ENCOUNTER 2023-02-23 10:26 | Outpatient (REF) | payer MEDICARE, SELFPAY ==
--- NOTE | 2023-02-23 11:06 | PFT_ITS ---
FLOWS: 1. FEV1 86% of predicted at 2.86 L. 2. FVC 77% of predicted at 3.44 L. 3. FEV1 to FVC ratio of 0.83. 4. No bronchodilator response. LUNG VOLUMES: 1. Total lung capacity 83% of predicted at 5.88 L. 2. Residual volume 96% of predicted at 2.34 L. 3. Slow vital capacity 77% of predicted at 3.54 L. 4. Expiratory reserve volume 10% of predicted at 0.3 L. 5. Diffusion capacity is normal. IMPRESSION: No obstructive or restrictive ventilatory defect. No bronchodilator response. Decreased expiratory reserve volume suggests extrathoracic restriction likely secondary to abdominal obesity. Archie Britton MD AP/MODL / [id number]
== END 2023-02-23 10:27 | disposition home or self-care (01) ==
LOC: HO.RESP 10:26
PROVIDERS: Visit Provider Hospitalist
DX: G12.21 Amyotrophic lateral sclerosis (principal)
CPT/HCPCS: 36415; 80051; 82310; 82565; 84520; 94010; 94727; 94729

== ENCOUNTER → 2023-02-23 11:06 | Outpatient (BNV) | payer MEDICARE, SELFPAY | PROVIDERS: Visit Provider Internal Medicine Pulmonary Disease | DX: R06.09 Other forms of dyspnea (principal) | CPT/HCPCS: 94060; 94727; 94729 ==

== ENCOUNTER 2023-03-02 10:00 | Outpatient (REF) | payer MEDICARE, SELFPAY ==
--- NOTE | ~2023-03-02 | XR_ITS ---
EXAMINATION: XR CHEST CLINICAL INFORMATION: Amyotrophic lateral sclerosis COMPARISON: None available. TECHNIQUE: AP upright and lateral view with the patient in a wheelchair. 10:40 AM FINDINGS: No significant abnormality is noted involving the heart, lungs, mediastinum, bony thorax or soft tissues. XR/XR chest 2V IMPRESSION: No acute cardiopulmonary disease.
[2023-03-02 13:15] LABS: Creatinine Urine 131.77 mg/dL; Microalbum/Creatinine Ratio Ur 6.8 ug/mg cr
== END 2023-03-02 10:01 | disposition home or self-care (01) ==
LOC: HO.XRAY 10:00
PROVIDERS: Internal Medicine Nephrology; PCP Nurse Practitioner Family; Visit Provider Hospitalist
DX: G12.21 Amyotrophic lateral sclerosis (principal); R80.9 Proteinuria, unspecified; I10 Essential (primary) hypertension
CPT/HCPCS: 71046; 82043

== ENCOUNTER 2023-03-16 15:16 | Outpatient (AMB) | payer MEDICARE, SELFPAY ==
--- NOTE | 2023-03-16 15:21 | MHC.PC.OV ---
Vital Signs 03/16/23 15:22 Height 5 ft 10 in BMI Reason not done Patient refused/unable BP 120/78 Blood Pressure Location Lt brachial Position Sitting Pulse 81 Pulse Source Pulse Oximeter Pulse Oximetry (%) 94 Oxygen Delivery Method Room Air Intake Visit Reasons: ALS Frequent falls Intake Note: pt has had 7 falls in the last 3 weeks Allergies methotrexate Allergy (Unknown, Verified 03/16/23 15:25) shortness of breath cats and dogs Allergy (Unknown, Uncoded 03/16/23 15:25) Unknown Medication List - Last Reconciled 03/16/23 by Salvador Dimas, [facility]- amlodipine 10 mg PO DAILY ascorbate calcium (vitamin C) 1,000 mg PO DAILY aspirin 81 mg PO DAILY atorvastatin 80 mg PO DAILY 90 days bethanechol chloride 50 mg PO BID 90 days Bifidobacterium infantis (Align) 4 mg PO DAILY blood sugar diagnostic ([employer] Ultra Blue Test Strip) BID once in the am..... then one other time throughout the day (either before lunch/dinner, or 2 hrs after lunch or dinner, or at bedtime) blood-glucose meter ([employer] Ultra2 Meter) Use to check blood sugar in morning and one other time during the day.(either before lunch/dinner, or 2 hrs after lunch or dinner, or at bedtime) coenzyme Q10 (Co Q-10) 100 mg PO DAILY edaravone (Radicava ORS) mg PO fexofenadine (Lesli Allergy) 180 mg PO Q24H finasteride 5 mg PO DAILY gabapentin 600 mg PO TID hydrochlorothiazide 12.5 mg PO QAM 30 days insulin glargine (Lantus U-100 Insulin) 21 units (0.21 mL) subcut QPM 90 days insulin syringe-needle U-100 (BD Insulin Syringe Ultra-Fine) Use with Lantus for evening dose subcutaneous injection lancets ([employer] UltraSoft Lancets) BID once in the am..... then one other time throughout the day (either before lunch/dinner, or 2 hrs after lunch or dinner, or at bedtime) losartan 50 mg PO DAILY metformin 500 mg (1/2 x 1,000 mg) PO BID [id number]-ohuionio-[id number] 1 tab PO DAILY pantoprazole 40 mg PO DAILY prednisone 50 mg PO DAILY 5 days [Right Ankle Foot Orthosis As directed] riluzole 50 mg PO BID sertraline 100 mg PO DAILY Tobacco use date assessed: 03/16/23 Fall risk assessment: 2 + Falls in past year Last assessed Fall Risk: 03/16/23 Dental Screening Dental Screen Date: 03/16/23 HPI ALS Frequent falls HPI Details Pt has ALS and is following up with neurology. Plan was as follows: Consider PFTs every 3 months and barium swallow for diet modifications. Consider BIPAP if FVC is <50%, voice banking may be considered through [facility]. Continue riluzole and radicava. Pt would like to be on relyvrio, plan to discuss with Dr. Varela. Pt will follow up with Dr. Varela for continued care of ALS. Pt has been having frequent falls. He reports significant weakness. Will set pt up with VNA services for full home evaluation for PT/OT and any other necessary services. #2 gout attack, right first MTP joint, will send short duration of prednisone [facility], [facility] Medical History Asthma Romero esophagus CKD (chronic kidney disease) Dyslipidemia HTN (hypertension) ANTONIA (obstructive sleep apnea) Plaque psoriasis Stroke Trochanteric bursitis, left hip Type 2 diabetes mellitus Surgical History History of left knee replacement History of left knee surgery Hx of appendectomy Hx of tonsillectomy Family History Father Diabetes Mother Diabetes Cancer Brother Bladder cancer Social History Housing: House Alcohol intake: never Patient Tobacco Use Status: Never used Tobacco e-Cigarette/Vaping Use: Never Used Second Hand Smoke Exposure: No Advance Directives Date on File: 12/23/20 Current occupational status: retired Current occupation: right handed Cognitive needs: Yes (walker) Hearing needs: No Vision needs: Yes (glasses) Questionnaire Thrive Questionnaire Date Thrive assessed: 01/13/21 YUMIKO-7 AMB Questionnaire YUMIKO-7 Date YUMIKO - 7 assessed: 11/24/21 Source: Developed by Drs. Juice Samaniego, Mercy Kimble, Eliseo Mccollum and colleagues, with an educational kevin from [employer]. Review of Systems Const Reports as per HPI Physical exam (Primary Care) Vital Signs: Last Vital Signs Pulse 81 03/16/23 15:22 BP 120/78 03/16/23 15:22 Pulse Ox 94 03/16/23 15:22 Oxygen Delivery Method Room Air 03/16/23 15:22 Tobacco/Smoking Status: Tobacco use Status Tobacco use date assessed 03/16/23 03/16/23 15:26 Patient Tobacco Use Status Never used Tobacco 03/16/23 15:22 e-Cigarette/Vaping Use Never Used 03/16/23 15:22 Thrive Assessment: Date of Thrive Assessment Date Thrive assessed 01/13/21 03/16/23 15:22 Const Other: in wheelchair, right ankle/foot brace present General: cooperative Nutritional Appearance: obese Orientation/consciousness: patient oriented x3 Resp Effort & Inspection: normal respiratory effort Auscultation: clear to auscultation bilaterally Cardio Rate: regular rate Rhythm: regular rhythm Heart sounds: S1 normal heart sound present, S2 normal heart sound present and no murmurs Back/Spine/Pelvis Other: weakness noted to BLE Neuro Other: upper extrem strength equal bilat General: patient oriented x3 Extrem Other: right first MTP joint faintly erythematous, tenderness with touch Psych Appearance: grossly normal Mental Status: mental status grossly normal Affect: normal affect Attitude: cooperative Thought process: Normal thought process present Thought content: Normal thought content present Insight: Good insight present (Psych) Judgement: Good judgement present (Psych) Assessment and Plan Assessment & Plan (1) ALS (amyotrophic lateral sclerosis): Code(s): G12.21 - Amyotrophic lateral sclerosis (2) Gout: Code(s): M10.9 - Gout, unspecified Plan The patient agreed to the use of a lpn or medical assistant for this encounter. Scribed for JAN Rasheed by Alie Pittman lpn or medical assistant, on 03/16/2023 at 15:50 EST. Medications: New prednisone 50 mg PO DAILY 5 tabs 0RF 5 days Coding Level of Care Code Est Pt Level 3 (89357) Diagnoses ALS (amyotrophic lateral sclerosis) G12.21 Gout M10.9
[2023-03-16 15:22] VITALS: BP 120/78; PULSE 81; O2SAT 94
== END 2023-03-16 16:14 | disposition home or self-care (01) ==
PROVIDERS: PCP Nurse Practitioner Family; Visit Provider Nurse Practitioner Family
DX: G12.21 Amyotrophic lateral sclerosis (principal); M10.9 Gout, unspecified
CPT/HCPCS: 99213

== ENCOUNTER 2023-03-21 08:35 | Outpatient (AMB) | payer MEDICARE, SELFPAY ==
[2023-03-21 08:41] VITALS: PULSE 62; O2SAT 94; BMI 43.3
--- NOTE | 2023-03-21 08:41 | A.OFFVIS_ITS ---
Intake Vital Signs 03/21/23 08:41 Height 5 ft 10 in Weight 302 lb BMI 43.3 Pulse 62 Pulse Source Pulse Oximeter Pulse Oximetry (%) 94 Oxygen Delivery Method Room Air Intake Visit Reasons: Obstructive sleep apnea Weather Observer Required: No Allergies methotrexate Allergy (Unknown, Verified 03/21/23 08:42) shortness of breath cats and dogs Allergy (Unknown, Uncoded 03/21/23 08:42) Unknown HPI HPI Comments History of Present Illness Details The patient is a 67-year-old gentleman with a known history of obstructive sleep apnea on CPAP who apparently has been developing worsening weakness. Primarily on the right side. He was evaluated by Neurology they were referred to a tertiary center where he was confirmed to have ALS. The patient does not have any respiratory complaints at this time. He still has a strong cough. Denies any choking on his foods. It is mainly the extremity weakness that limits him. Again right more than left. In the meantime the patient has been struggling with CPAP. The mask fitting is not good for him since he cannot get the old mask that he used to get before because is now up sleep. I did have an ex 30 I mask available that I did fit him for he did well with. I did call his [employer] company, [employer] and he is on her active with them. Therefore, the patient is not getting supplies regularly. In the meantime with now it diagnosis of acute lateral sclerosis the patient needs to be assess for evidence of any respiratory failure. I will go ahead and request pulmonary function studies to assess for any restriction and also a blood gas to assess for hypercarbia. If the patient has any evidence of hypercarbia then a noninvasive ventilator will be more effective for him in view of his neurological progressive disease that will result and further respiratory failure. 03/21/2023 the patient is here for a pulmonary follow-up visit. Overall he is doing about the same. He is using the CPAP at nighttime. Although we did check a blood gas demonstrating evidence of hypercarbic respiratory failure. She used to do is elevated. The patient does have a progressive neurological condition with ALS. Therefore in view of his worsening respiratory situation will go ahead and request a noninvasive ventilator for him. He does not need a sip and puff at this point, but, I did talked about getting a mouthpiece later as his condition progresses where he can take the noninvasive ventilator with him in use it during the daytime. Patient also had pulmonary function studies. Is reassuring that his overall lung capacity is fairly good. In addition to that the patient had a a chest x-ray that was reassuring. Will work closely with his [employer] company, [employer] to provide with all that he needs to maintain a good quality of life. Will have him return in 3-4 months with spirometry which will try to do with every visit. [facility] Medical History (Updated 03/21/23 @ 21:20 by Blu Franklin MD) Asthma Romero esophagus Chronic respiratory failure CKD (chronic kidney disease) Dyslipidemia HTN (hypertension) ANTONIA (obstructive sleep apnea) Plaque psoriasis Stroke Trochanteric bursitis, left hip Type 2 diabetes mellitus Surgical History History of left knee replacement History of left knee surgery Hx of appendectomy Hx of tonsillectomy Family History Father Diabetes Mother Diabetes Cancer Brother Bladder cancer Social History Housing: House Alcohol intake: never Patient Tobacco Use Status: Never used Tobacco e-Cigarette/Vaping Use: Never Used Second Hand Smoke Exposure: No Advance Directives Date on File: 12/23/20 Current occupational status: retired Current occupation: right handed Cognitive needs: Yes (walker) Hearing needs: No Vision needs: Yes (glasses) Review of Systems Const Reports daytime sleepiness, Denies fever(s), Reports snoring and Reports weakness Eyes Denies change in vision ENT Denies change in voice and Denies dysphagia Card Denies chest pain, Denies dyspnea and Reports dyspnea on exertion Resp Denies cough, Denies dyspnea, Reports dyspnea on exertion, Reports snoring and Denies wheezing GI Denies dysphagia Musc Reports muscle weakness Skin/Breast Denies rash Neuro Reports as per HPI, Reports tremor(s) and Reports weakness Mansoor/Lymph Denies easy bleeding Aller/Immun Denies wheezing Physical Exam Vital Signs: Last Vital Signs Pulse 62 03/21/23 08:41 Pulse Ox 94 03/21/23 08:41 Oxygen Delivery Method Room Air 03/21/23 08:41 BMI result Body Mass Index 43.3 Const General: comfortable HEENT Head: Yes atraumatic Neck Neck: Yes trachea midline and Yes supple Chest Chest palpation & inspection: normal inspection of the chest Resp Effort & Inspection: normal respiratory effort Auscultation: diminished lung sounds Cardio Rate: regular rate Rhythm: regular rhythm Heart sounds: S1 normal heart sound present and S2 normal heart sound present GI Palpation (GI): Soft to palpation Skin General skin exam: no rashes or lesions noted Extrem General: Yes no clubbing, cyanosis or edema Assessment & Plan Assessment & Plan (1) ALS (amyotrophic lateral sclerosis): Code(s): G12.21 - Amyotrophic lateral sclerosis (2) Chronic respiratory failure: Comment: evidence of hypercarbia which carries a poor prognosis and hi risk for hospital admission. Needs to start non invasive ventilation to improve gas exchange and improve prognosis. Code(s): J96.10 - Chronic respiratory failure, unspecified whether with hypoxia or hypercapnia Qualifiers: Respiratory failure complication: hypercapnia Qualified Code(s): J96.12 - Chronic respiratory failure with hypercapnia Plan start NIV. May need a mouth piece in the near future cough assistance HOB 30/ positional bed spirometry during next visit F/U 3-4 months Coding Level of Care Code Est Pt Level 4 (58779) Diagnoses ALS (amyotrophic lateral sclerosis) G12.21 Chronic respiratory failure J96.12 Respiratory failure complication: hypercapnia Time Spent (min) 20
== END 2023-03-21 09:06 | disposition home or self-care (01) ==
PROVIDERS: PCP Nurse Practitioner Family; Visit Provider Hospitalist
DX: G12.21 Amyotrophic lateral sclerosis (principal); J96.12 Chronic respiratory failure with hypercapnia
CPT/HCPCS: 99214

== ENCOUNTER → 2023-03-21 08:35 | Outpatient (BNVA) | payer MEDICARE, SELFPAY | PROVIDERS: PCP Nurse Practitioner Family; Visit Provider Hospitalist | DX: G12.21 Amyotrophic lateral sclerosis (principal); J96.12 Chronic respiratory failure with hypercapnia | CPT/HCPCS: 99212 ==

== ENCOUNTER 2023-03-28 09:30 | Outpatient (AMB) | payer MEDICARE, SELFPAY ==
--- NOTE | 2023-03-28 09:43 | A.OFFVIS_ITS ---
Intake Intake Visit Reasons: Enlarged prostate- follow up/PVR Intake Note: Patient is present for follow up PVR/BPH/Incomplete bladder emptying Urology Medications: finasteride, bethanechol Blood Thinner: Aspirin PVR: 0ml's Executive Staff Assistant Required: No Accompanied by: Son and Allergies methotrexate Allergy (Unknown, Verified 03/28/23 10:42) shortness of breath cats and dogs Allergy (Unknown, Uncoded 03/28/23 10:42) Unknown Medication List - Last Reconciled 03/28/23 by KATY Welch- amlodipine 10 mg PO DAILY ascorbate calcium (vitamin C) 1,000 mg PO DAILY aspirin 81 mg PO DAILY atorvastatin 80 mg PO DAILY 90 days bethanechol chloride 50 mg PO BID 90 days Bifidobacterium infantis (Align) 4 mg PO DAILY blood sugar diagnostic ([employer] Ultra Blue Test Strip) BID once in the am..... then one other time throughout the day (either before lunch/dinner, or 2 hrs after lunch or dinner, or at bedtime) blood-glucose meter ([employer] Ultra2 Meter) Use to check blood sugar in morning and one other time during the day.(either before lunch/dinner, or 2 hrs after lunch or dinner, or at bedtime) coenzyme Q10 (Co Q-10) 100 mg PO DAILY CPAP (CPAP Machine/Device) As directed edaravone (Radicava ORS) mg PO fexofenadine (Lesli Allergy) 180 mg PO Q24H finasteride 5 mg PO DAILY gabapentin 600 mg PO TID hydrochlorothiazide 12.5 mg PO QAM 30 days insulin glargine (Lantus U-100 Insulin) 21 units (0.21 mL) subcut QPM 90 days insulin syringe-needle U-100 (BD Insulin Syringe Ultra-Fine) Use with Lantus for evening dose subcutaneous injection lancets ([employer] UltraSoft Lancets) BID once in the am..... then one other time throughout the day (either before lunch/dinner, or 2 hrs after lunch or dinner, or at bedtime) losartan 50 mg PO DAILY metformin 500 mg (1/2 x 1,000 mg) PO BID [id number]-qosatzns-ybjkua 1 tab PO DAILY pantoprazole 40 mg PO DAILY [Right Ankle Foot Orthosis As directed] riluzole 50 mg PO BID sertraline 100 mg PO DAILY tramadol 50 mg PO BID PRN 10 days HPI HPI Comments History of Present Illness Details Guero is a pleasant 67 year old male patient of Dr. Izaguirre who was accompanied by his son and at today's visit. He presents to the office today for follow-up of his lower urinary tract symptoms and history of hematuria. He has a past medical history significant for diabetes, CKD, dyslipidemia, ANTONIA, hypertension, asthma, osteoarthritis of the hip, current right shoulder fracture, and newly diagnosed with ALS (amyotrophic lateral sclerosis).?Of note, patient was seen approximately 2 months ago at which time recommendations were made for CIC due to increased PVRs and incomplete bladder emptying. During last office visit plan was to have patient's come in to teach CIC however patient reports he did not feel this was necessary. At which time recommendations were made for follow-up to discuss affects of incomplete bladder emptying and other treatment options versus CIC. However PVR today 0 mL. In office urinalysis results reviewed with the patient today. When asked patient reports he feels his bladder is better however he continues to have progressive musculoskeletal issues with his ALS. He discusses getting PT and OT services at home due to his increased falls over the last few weeks. He otherwise denies any bothersome urinary issues or concerns at this time. He discusses being incontinent at times due to his decreased mobility and sensation however he states this is the least of his concerns at this time. He discusses his upcoming follow-up appointment with Neurology regarding a new medication for his ALS and possible clinical trial. He otherwise offers no other issues or concerns at this time. 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 PSA 08/06 1.6, 03/07 2.0 Imaging - 08/08 CT scan 6.3 cm prostate coarse calcifications, no upper tract pathology Cytology - 10/06 atypical PFSH Medical History Chronic respiratory failure CKD (chronic kidney disease) Trochanteric bursitis, left hip Romero esophagus Dyslipidemia Type 2 diabetes mellitus Plaque psoriasis Stroke ANTONIA (obstructive sleep apnea) HTN (hypertension) Asthma Surgical History History of left knee surgery Hx of tonsillectomy Hx of appendectomy History of left knee replacement Family History Father Diabetes Mother Diabetes Cancer Brother Bladder cancer Social History Housing: House Alcohol intake: never Patient Tobacco Use Status: Never used Tobacco e-Cigarette/Vaping Use: Never Used Second Hand Smoke Exposure: No Advance Directives Date on File: 12/23/20 Current occupational status: retired Current occupation: right handed Cognitive needs: Yes (walker) Hearing needs: No Vision needs: Yes (glasses) Review of Systems Const Reports as per HPI Eyes Reports no additional complaints ENT Reports no additional complaints Card Reports as per HPI Resp Reports as per HPI GI Reports no additional complaints Reports as per HPI Musc Reports as per HPI Neuro Reports as per HPI Psych Reports no additional complaints Endo Reports as per HPI Mansoor/Lymph Reports no additional complaints Aller/Immun Reports no additional complaints Physical Exam Const General: cooperative, comfortable, no acute distress, well developed, alert and awake Nutritional Appearance: overweight Orientation/consciousness: patient oriented x3 Limitations: wheelchair HEENT Head: Yes normal to inspection, Yes normocephalic and Yes atraumatic Ears: hearing grossly normal bilaterally Eyes General: appearance normal, both eyes and all related structures Neck Neck: Yes normal visual inspection and Yes trachea midline Chest Chest palpation & inspection: normal inspection of the chest Resp Effort & Inspection: normal respiratory effort and able to speak in complete sentences Cardio Rate: regular rate GI Inspection: Yes normal to inspection and Yes Abdominal panniculus present General: Yes no CVA tenderness Back/Spine/Pelvis Back: no CVA tenderness Neuro General: patient oriented x3 Psych Appearance: grossly normal and well kempt Mental Status: mental status grossly normal Speech and movement: Clear speech present Affect: normal affect Attitude: cooperative Thought process: Normal thought process present Thought content: Normal thought content present Insight: Fair insight present (Psych) Judgement: Fair judgement present (Psych) Office Procedures Post Void Residual Post Residual Void Post Void Residual (PVR): 0 [id number]-[id number] Void Residual by ultrasound Assessment & Plan Assessment & Plan (1) Incomplete bladder emptying: Code(s): R33.9 - Retention of urine, unspecified (2) Enlarged prostate: Code(s): N40.0 - Benign prostatic hyperplasia without lower urinary tract symptoms (3) Urinary incontinence: Code(s): R32 - Unspecified urinary incontinence Plan In office urinalysis results reviewed with the patient today. PVR 0 mL. Continue finasteride and bethanechol as prescribed Patient denies any bothersome urinary issues or concerns at this time. Discussed at length incomplete bladder emptying Follow up in 3 months with PVR; or sooner with any questions, concerns, or issues. Orders: Orders AMB Urinalysis Automated 03/28/23 Z13.9 - Encounter for screening, unspecified AMB Post Void Residual by ultrasound 03/28/23 R33.9 - Retention of urine, unspecified Patient Instructions: The patient had an opportunity to ask questions regarding the treatment plan. All questions were answered. Physical exam, labs, and imaging were discussed and reviewed in detail. As well as risks, benefits, and discussion of treatment choices. No major barriers to understanding were identified. The patient expressed understanding and agreement with the above treatment plan. The patient was made aware they should contact our office by phone for worsening of their current condition, the appearance of new symptoms, or with any questions or concerns. Compliance is encouraged with any medications and follow up testing that is ordered. It is a privilege to be allowed the opportunity to participate in? your urological care.? Again, if you have any questions or concerns If you have any questions or concerns please do not hesitate to contact me. The office is [phone]. This note is constructed using voice recognition software. While every effort has been made to ensure accuracy outside installation machinist errors may have been included. Yours sincerely, JAN Welch Coding Level of Care Code Est Pt Level 3 (70967) Diagnoses Incomplete bladder emptying R33.9 Enlarged prostate N40.0 Urinary incontinence R32 CPT Codes Post Residual Void - PVR CPT Code: 88298-[id number] Void Residual by ultrasound ([id number])
== END 2023-03-28 10:28 | disposition home or self-care (01) ==
PROVIDERS: PCP Nurse Practitioner Family; Visit Provider Nurse Practitioner Family
DX: R33.9 Retention of urine, unspecified (principal); N40.0 Benign prostatic hyperplasia without lower urinary tract symptoms; R32 Unspecified urinary incontinence
CPT/HCPCS: 99213

== ENCOUNTER → 2023-03-28 09:30 | Outpatient (BNVA) | payer MEDICARE, SELFPAY | PROVIDERS: PCP Nurse Practitioner Family; Visit Provider Nurse Practitioner Family | DX: N40.1 Benign prostatic hyperplasia with lower urinary tract symptoms (principal); R33.8 Other retention of urine; R32 Unspecified urinary incontinence; Z79.899 Other long term (current) drug therapy | CPT/HCPCS: 51798; 99212 ==

== ENCOUNTER 2023-05-04 12:09 | Outpatient (REF) | payer MEDICARE, SELFPAY ==
[2023-05-04 12:12] LABS: MANUAL DIFF FLAG NO
[2023-05-04 12:45] LABS: Estimated Average Glucose 117 mg/dL; Hemoglobin A1c % 5.7 % (<6.0)
[2023-05-04 12:50] LABS: Basophils Absolute Auto 0.1 X10*3/uL (0.0-0.2); Basophils Percent Auto 0.6 % (0-2); Eosinophils Absolute Auto 0.2 X10*3/uL (0.0-0.4); Eosinophils Percent Auto 3.1 % (0-4); Hematocrit 40.1 % (42.0-52.0); Hemoglobin 13.7 g/dl (14.0-18.0); Imm Gran Abs Auto 0.04 X10*3/uL (0.00-0.03); Imm Gran Pct Auto 0.5 % (0.0-0.4); Lymphocytes Absolute Auto 1.3 X10*3/uL (1.2-4.9); Lymphocytes Percent Auto 17.3 % (20-40); Mean Corpuscular HGB Conc 34.2 g/dl (31.0-36.0); Mean Platelet Volume 10.8 fL (9.4-12.4); Monocytes Absolute Auto 0.8 X10*3/uL (0.1-1.2); Monocytes Percent Auto 10.3 % (2-11); Neutrophils Absolute Auto 5.3 x10*3/uL (2.0-8.3); Neutrophils Percent Auto 68.2 % (45-73); Platelet Count 186 X10*3/uL (160-400); Red Blood Count 4.72 X10*6/uL (4.60-5.80); Red Cell Distribution Width 13.2 % (11.0-16.0); White Blood Count 7.8 X10*3/uL (4.8-10.8)
[2023-05-04 13:30] LABS: TSH reflex Free T4 0.83 uIU/mL (0.32-4.0)
[2023-05-04 13:57] LABS: Anion Gap 18 (12-20)
[2023-05-04 14:03] LABS: Alanine Aminotransferase 38 U/L (0-40); Albumin Level 3.6 g/dL (3.5-5.0); Alkaline Phosphatase 104 U/L (39-117); Aspartate Amino Transferase 29 U/L (5-37); Bilirubin Total 0.4 mg/dL (0.0-1.0); Blood Urea Nitrogen 17 mg/dL (9-16); Calcium 9.6 mg/dL (8.4-10.2); Carbon Dioxide 21 mmol/L (22-29); Chloride 104 mmol/L (96-108); Cholesterol 190 mg/dL (<200); Estimated Glomerular Filt Rate > 60; Glucose Random 141 mg/dL (60-115); HDL Cholesterol 34 mg/dL (>40); LDL Cholesterol Calculated 88 mg/dL (<100); Potassium 3.7 mmol/L (3.3-5.1); Sodium 139 mmol/L (135-145); Total Protein 6.9 g/dL (6.5-8.0); Triglycerides 342 mg/dL (<150)
[2023-05-04 16:28] LABS: Appearance Urine Clear; Color Urine Yellow; Glucose Urine UA Negative (Negative); Leukocyte Esterase Urine Small (1+) (Negative); Nitrite Urine Negative (Negative); Specific Gravity - Urine 1.015 (1.005-1.025); UMIC TRIGGER UACC YES; Urine Blood Negative (Negative); Urine Ketones Negative (Negative); Urine Protein Negative (Neg-Trace)
[2023-05-04 16:40] LABS: Bacteria Urine None Seen (None Seen); Hyaline Casts Urine 0-2 /LPF (0-2); RBC Urine 0-2 /HPF (0-2); Squamous Epithelial Cell Urine 0-2 /HPF (0-2); UACC Culture Trigger YES; WBC Urine 0-5 /HPF (0-5)
[2023-05-04 17:04] LABS: Creatinine Urine 53.23 mg/dL; Microalbumin Urine < 5.0 mg/L
== END 2023-05-04 12:10 | disposition home or self-care (01) ==
LOC: HO.HVNA 12:09
PROVIDERS: Visit Provider Nurse Practitioner Family
DX: E11.9 Type 2 diabetes mellitus without complications (principal); R82.90 Unspecified abnormal findings in urine
CPT/HCPCS: 36415; 80053; 80061; 81001; 82043; 82570; 83036; 84443; 85025; 87086

== ENCOUNTER 2023-05-18 07:44 | Outpatient (AMB) | payer MEDICARE, SELFPAY ==
--- NOTE | 2023-05-18 07:32 | A.OFFPC_ITS ---
Intake Visit Reasons: Progressive ALS ~[phone] Android Allergies methotrexate Allergy (Unknown, Verified 03/28/23 10:42) shortness of breath cats and dogs Allergy (Unknown, Uncoded 03/28/23 10:42) Unknown Tobacco use date assessed: 03/16/23 HPI Progressive ALS ~[phone] Android HPI Details Pt is currently bedbound due to ALS, he has a rotating hospital bed. Pt is currently being seen by [facility]. He is having severe weakness to his RLE, now moving to his LLE. Pt has been seen by PT/OT and was signed off on. Pt's is his full-time caregiver. He remains in good spirits. Pt's denies any skin breakdown. HTN: Pt reports that his blood pressure at home is stable. Denies fever, chills, chest pain, shortness of breath, headache, dizziness, and blurred vision. [facility] Medical History Chronic respiratory failure CKD (chronic kidney disease) Trochanteric bursitis, left hip Romero esophagus Dyslipidemia Type 2 diabetes mellitus Plaque psoriasis Stroke ANTONIA (obstructive sleep apnea) HTN (hypertension) Asthma Surgical History History of left knee surgery Hx of tonsillectomy Hx of appendectomy History of left knee replacement Family History Father Diabetes Mother Diabetes Cancer Brother Bladder cancer Social History Housing: House Alcohol intake: never Patient Tobacco Use Status: Never used Tobacco e-Cigarette/Vaping Use: Never Used Second Hand Smoke Exposure: No Advance Directives Date on File: 12/23/20 Current occupational status: retired Current occupation: right handed Cognitive needs: Yes (walker) Hearing needs: No Vision needs: Yes (glasses) Questionnaire Thrive Questionnaire Date Thrive assessed: 01/13/21 YUMIKO-7 AMB Questionnaire YUMIKO-7 Date YUMIKO - 7 assessed: 11/24/21 Source: Developed by Drs. Juice Samaniego, Mercy Kimble, Eliseo Mccollum and colleagues, with an educational kevin from [employer]. Review of Systems Const Reports as per HPI Physical exam (Primary Care) Tobacco/Smoking Status: Tobacco use Status Tobacco use date assessed 03/16/23 05/18/23 07:37 Patient Tobacco Use Status Never used Tobacco 05/18/23 07:37 e-Cigarette/Vaping Use Never Used 05/18/23 07:37 Thrive Assessment: Date of Thrive Assessment Date Thrive assessed 01/13/21 05/18/23 07:37 Const General: cooperative Orientation/consciousness: patient oriented x3 Neuro General: patient oriented x3 Psych Appearance: grossly normal Mental Status: mental status grossly normal Speech and movement: Clear speech present Affect: normal affect Attitude: cooperative Thought process: Normal thought process present Thought content: Normal thought content present Insight: Good insight present (Psych) Judgement: Good judgement present (Psych) Telehealth Telehealth Location of provider rendering services: practice address Location of patient: address on file Patient Identification confirmed using: Name, : Yes Telehealth method: video Patient verbally consented to treatment: Yes Patient verbally consented to billing insurance company: Yes Patient informed of any privacy concerns related to visit: Yes Minutes spent on Phone/Video with Pt.: 10 Assessment and Plan Assessment & Plan (1) HTN (hypertension): Code(s): I10 - Essential (primary) hypertension (2) ALS (amyotrophic lateral sclerosis): Code(s): G12.21 - Amyotrophic lateral sclerosis (3) Weakness: Code(s): R53.1 - Weakness Plan The patient agreed to the use of a medical transcriptionist for this encounter. Scribed for JAN Rasheed by zofia Mckee scribe, on 05/18/2023 at 07:30 EST. Coding Level of Care Code Tele Est Pt Level 3 (87356) Diagnoses HTN (hypertension) I10 ALS (amyotrophic lateral sclerosis) G12.21 Weakness R53.1
== END 2023-05-18 07:45 | disposition home or self-care (01) ==
LOC: HO.HMGC 07:44
PROVIDERS: PCP Nurse Practitioner Family; Visit Provider Nurse Practitioner Family
DX: I10 Essential (primary) hypertension (principal); G12.21 Amyotrophic lateral sclerosis; R53.1 Weakness
CPT/HCPCS: 99441

== ENCOUNTER 2023-06-27 09:08 | Outpatient (AMB) | payer MEDICARE, SELFPAY ==
[2023-06-27 09:09] VITALS: BMI 47.6
--- NOTE | 2023-06-27 09:09 | MHC.OFFVIS ---
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 Primarily on the right side. He was evaluated by Neurology they were referred to a tertiary center where he was confirmed to have ALS. The patient does not have any respiratory complaints at this time. He still has a strong cough. Denies any choking on his foods. It is mainly the extremity weakness that limits him. Again right more than left. In the meantime the patient has been struggling with CPAP. The mask fitting is not good for him since he cannot get the old mask that he used to get before because is now up sleep. I did have an ex 30 I mask available that I did fit him for he did well with. I did call his [employer] and he is on her active with them. Therefore, the patient is not getting supplies regularly. In the meantime with now it diagnosis of acute lateral sclerosis the patient needs to be assess for evidence of any respiratory failure. I will go ahead and request pulmonary function studies to assess for any restriction and also a blood gas to assess for hypercarbia. If the patient has any evidence of hypercarbia then a noninvasive ventilator will be more effective for him in view of his neurological progressive disease that will result and further respiratory failure. 03/21/2023 the patient is here for a pulmonary follow-up visit. Overall he is doing about the same. He is using the CPAP at nighttime. Although we did check a blood gas demonstrating evidence of hypercarbic respiratory failure. She used to do is elevated. The patient does have a progressive neurological condition with ALS. Therefore in view of his worsening respiratory situation will go ahead and request a noninvasive ventilator for him. He does not need a sip and puff at this point, but, I did talked about getting a mouthpiece later as his condition progresses where he can take the noninvasive ventilator with him in use it during the daytime. Patient also had pulmonary function studies. Is reassuring that his overall lung capacity is fairly good. In addition to that the patient had a a chest x-ray that was reassuring. Will work closely with his [employer] company, [employer] to provide with all that he needs to maintain a good quality of life. Will have him return in 3-4 months with spirometry which will try to do with every visit. 06/27/2023 the patient has a telehealth visit today. Apparently his ALS has progressed to the point that he is not able to get out of bed therefore he is bed-bound. The patient does not have the ability to leave the house this time she therefore all the visits medical visits he is having a telehealth. He states that both his upper and lower extremities are extremity we can. He is still eating. Denies any choking episodes. He does have a cough. He is able to speak on the phone and have a normal conversation at this time. He is having hard time with his noninvasive ventilator. We obtained he states that he is not getting the right supplies. I explained to him 2 major things. The 1st thing is the importance of monitoring closely his muscular progression as appears to be moving quickly and if he does develop issues with not able to handle his secretions or swallow a he has risk for aspiration is high in the use of a noninvasive ventilator will be contraindicated. The patient and also the patient's do not feel that he is at the point of needing a tracheostomy. I explained to her my concerns as far as the progression of the disease could lead to quickly we can respiratory muscles and subsequent respiratory failure per I did reach out to the [employer] company [employer] to look at the noninvasive ventilator and try to help him with the supplies to make sure that he is using it. But, also to assess he feels safe using it because if he is not safe then we have to consider a referral to a thoracic surgeon for a tracheostomy placement. Also did recommend that the patient and also his family talk about his goals of care and the tracheostomy invasive ventilation is something that he wants to pursue that we also have to make sure that we have everything in place as his condition progresses. [facility] Medical History Chronic respiratory failure CKD (chronic kidney disease) Trochanteric bursitis, left hip Romero esophagus Dyslipidemia Type 2 diabetes mellitus Plaque psoriasis Stroke ANTONIA (obstructive sleep apnea) HTN (hypertension) Asthma Surgical History History of left knee surgery Hx of tonsillectomy Hx of appendectomy History of left knee replacement Family History Father Diabetes Mother Diabetes Cancer Brother Bladder cancer Social History Housing: House Alcohol intake: never Patient Tobacco Use Status: Never used Tobacco e-Cigarette/Vaping Use: Never Used Second Hand Smoke Exposure: No Advance Directives Date on File: 12/23/20 Current occupational status: retired Current occupation: right handed Cognitive needs: Yes (walker) Hearing needs: No Vision needs: Yes (glasses) Review of Systems Const Reports daytime sleepiness, Denies fever(s), Reports snoring and Reports weakness Eyes Denies change in vision ENT Denies change in voice and Denies dysphagia Card Denies chest pain, Denies dyspnea and Reports dyspnea on exertion Resp Denies cough, Denies dyspnea, Reports dyspnea on exertion, Reports snoring and Denies wheezing GI Denies dysphagia Musc Reports abnormal gait and Reports muscle weakness Skin/Breast Denies rash Neuro Reports as per HPI, Reports abnormal gait, Reports tremor(s) and Reports weakness Mansoor/Lymph Denies easy bleeding Aller/Immun Denies wheezing Physical Exam Vital Signs: BMI result Body Mass Index 47.6 Const General: cooperative Orientation/consciousness: patient oriented x3 Resp Effort & Inspection: able to speak in complete sentences Neuro General: patient oriented x3 Assessment & Plan Assessment & Plan (1) ALS (amyotrophic lateral sclerosis): Code(s): G12.21 - Amyotrophic lateral sclerosis (2) Chronic respiratory failure: Comment: evidence of hypercarbia which carries a poor prognosis and hi risk for hospital admission. Needs to start non invasive ventilation to improve gas exchange and improve prognosis. Code(s): J96.10 - Chronic respiratory failure, unspecified whether with hypoxia or hypercapnia Qualifiers: Respiratory failure complication: hypercapnia Qualified Code(s): J96.12 - Chronic respiratory failure with hypercapnia Plan continue NIV. May need a mouth piece in the near future Respiratory therapy from [facility] to reassess NIV, assessment for negative inspiratory pressure measurements if possible cough assistance HOB 30/ positional bed spirometry during next visit Consider thoracic surgery referral from tracheostomy F/U 6-8 weeks, telehealth Telehealth Telehealth Location of provider rendering services: practice address Location of patient: address on file Patient Identification confirmed using: Name, : Yes Telehealth method: voice only Patient verbally consented to treatment: Yes Patient verbally consented to billing insurance company: Yes Patient informed of any privacy concerns related to visit: Yes Coding Level of Care Code Tele Est Pt Level 4 (27546) Diagnoses ALS (amyotrophic lateral sclerosis) G12.21 Chronic respiratory failure with hypercapnia J96.12 Respiratory failure complication: hypercapnia Time Spent (min) 15
== END 2023-06-27 09:44 | disposition home or self-care (01) ==
LOC: HO.HPS 09:08
PROVIDERS: PCP Nurse Practitioner Family; Visit Provider Hospitalist
DX: G12.21 Amyotrophic lateral sclerosis (principal); J96.12 Chronic respiratory failure with hypercapnia
CPT/HCPCS: 99442

== ENCOUNTER → 2023-06-27 09:08 | Outpatient (BNVA) | payer MEDICARE, SELFPAY | PROVIDERS: PCP Nurse Practitioner Family; Visit Provider Hospitalist ==

== ENCOUNTER 2023-06-30 11:36 | Outpatient (AMB) | payer MEDICARE, SELFPAY ==
--- NOTE | 2023-06-30 11:37 | MHC.OFFVIS ---
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 then one other time throughout the day (either before lunch/dinner, or 2 hrs after lunch or dinner, or at bedtime) blood-glucose meter (CompuMed Ultra2 Meter) Use to check blood sugar in morning and one other time during the day.(either before lunch/dinner, or 2 hrs after lunch or dinner, or at bedtime) coenzyme Q10 (Co Q-10) 100 mg PO DAILY CPAP (CPAP Machine/Device) As directed edaravone (Radicava ORS) mg PO fexofenadine (Lesli Allergy) 180 mg PO Q24H finasteride 5 mg PO DAILY 90 days gabapentin 600 mg PO TID hydrochlorothiazide 25 mg PO DAILY insulin glargine (Lantus U-100 Insulin) 21 units (0.21 mL) subcut QPM 90 days insulin syringe-needle U-100 (BD Insulin Syringe Ultra-Fine) Use with Lantus for evening dose subcutaneous injection lancets ([place] [employer] Materialsuch UltraSoft Lancets) BID once in the am..... then one other time throughout the day (either before lunch/dinner, or 2 hrs after lunch or dinner, or at bedtime) losartan 50 mg PO DAILY metformin 500 mg (1/2 x 1,000 mg) PO BID [id number]-[id number] 1 tab PO DAILY pantoprazole 40 mg PO DAILY [Right Ankle Foot Orthosis As directed] [right ankle night resting splint As directed] riluzole 50 mg PO BID sertraline 100 mg PO DAILY sod phenylbutyrat-taurursodiol 3-1 gram (Relyvrio) PO tizanidine 2 mg PO TID tramadol 50 mg PO BID PRN 10 days HPI HPI Comments History of Present Illness Details Guero is a pleasant 67 year old male patient of Dr. Izaguirre. He has a past medical history significant for diabetes, CKD, dyslipidemia, ANTONIA, hypertension, asthma, osteoarthritis of the hip, current right shoulder fracture, and newly diagnosed with ALS (amyotrophic lateral sclerosis). He is being followed up on today via telehealth for his lower urinary tract symptoms and incomplete bladder emptying. Of note, patient was scheduled for follow-up in office approximately 2 weeks ago however unfortunately his ALS is progressing and he has been bed-bound therefore unable to make it into the office. In discussion with the patient today regarding his urological issues he reports to be doing well. He reports compliance with bethanechol 50 mg b.i.d.. He reports given his decreased mobility and prolonged time to the bathroom he is incontinent. However, he does not find this bothersome as he reports he has other issues he is wearing about. Patient and his discussed her main concern is the possibility of a trach at this time. He otherwise denies any bothersome urinary issues or concerns at this time. He otherwise offers no other issues or concerns at this time. 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 PSA 08/06 1.6, 03/07 2.0 Imaging - 08/08 CT scan 6.3 cm prostate coarse calcifications, no upper tract pathology Cytology - 10/06 atypical PFSH Medical History Chronic respiratory failure CKD (chronic kidney disease) Trochanteric bursitis, left hip Romero esophagus Dyslipidemia Type 2 diabetes mellitus Plaque psoriasis Stroke ANTONIA (obstructive sleep apnea) HTN (hypertension) Asthma Surgical History History of left knee surgery Hx of tonsillectomy Hx of appendectomy History of left knee replacement Family History Father Diabetes Mother Diabetes Cancer Brother Bladder cancer Social History Housing: House Alcohol intake: never Patient Tobacco Use Status: Never used Tobacco e-Cigarette/Vaping Use: Never Used Second Hand Smoke Exposure: No Advance Directives Date on File: 12/23/20 Current occupational status: retired Current occupation: right handed Cognitive needs: Yes (walker) Hearing needs: No Vision needs: Yes (glasses) Review of Systems Const Reports as per HPI Eyes Reports no additional complaints ENT Reports no additional complaints Card Reports as per HPI Resp Reports as per HPI GI Reports no additional complaints Reports as per HPI Musc Reports as per HPI Neuro Reports as per HPI Psych Reports no additional complaints Endo Reports as per HPI Mansoor/Lymph Reports no additional complaints Aller/Immun Reports no additional complaints Physical Exam Const General: cooperative Limitations: other limitations (bed bound) Psych Attitude: cooperative Insight: Fair insight present (Psych) Judgement: Fair judgement present (Psych) Assessment & Plan Assessment & Plan (1) Incomplete bladder emptying: Code(s): R33.9 - Retention of urine, unspecified (2) Enlarged prostate: Code(s): N40.0 - Benign prostatic hyperplasia without lower urinary tract symptoms (3) Urinary incontinence: Code(s): R32 - Unspecified urinary incontinence Plan Continue finasteride and bethanechol as prescribed; refills provided. Patient denies any bothersome urinary issues or concerns at this time. Follow up in 3 months; or sooner with any questions, concerns, or issues. Medications: Refilled bethanechol chloride 50 mg PO BID 90 tabs 3RF 90 days Patient Instructions: The patient had an opportunity to ask questions regarding the treatment plan. All questions were answered. Physical exam, labs, and imaging were discussed and reviewed in detail. As well as risks, benefits, and discussion of treatment choices. No major barriers to understanding were identified. The patient expressed understanding and agreement with the above treatment plan. The patient was made aware they should contact our office by phone for worsening of their current condition, the appearance of new symptoms, or with any questions or concerns. Compliance is encouraged with any medications and follow up testing that is ordered. It is a privilege to be allowed the opportunity to participate in? your urological care.? Again, if you have any questions or concerns If you have any questions or concerns please do not hesitate to contact me. The office is [phone]. This note is constructed using voice recognition software. While every effort has been made to ensure accuracy corporate ethics officer errors may have been included. Yours sincerely, LONNIE WelchP- Telehealth Telehealth Location of provider rendering services: practice address Location of patient: address on file Patient Identification confirmed using: Name, : Yes Telehealth method: voice only Patient verbally consented to treatment: Yes Patient verbally consented to billing insurance company: Yes Patient informed of any privacy concerns related to visit: Yes Minutes spent on Phone/Video with Pt.: 15 Coding Level of Care Code Tele Est Pt Level 3 (63321) Diagnoses Incomplete bladder emptying R33.9 Enlarged prostate N40.0 Urinary incontinence R32 Time Spent (min) 15
== END 2023-06-30 12:14 | disposition home or self-care (01) ==
LOC: HO.HUSH 11:36
PROVIDERS: PCP Nurse Practitioner Family; Visit Provider Nurse Practitioner Family
DX: R33.9 Retention of urine, unspecified (principal); N40.0 Benign prostatic hyperplasia without lower urinary tract symptoms; R32 Unspecified urinary incontinence
CPT/HCPCS: 99442

== ENCOUNTER → 2023-06-30 11:36 | Outpatient (BNVA) | payer MEDICARE, SELFPAY | PROVIDERS: PCP Nurse Practitioner Family; Visit Provider Nurse Practitioner Family ==

== ENCOUNTER 2023-08-08 11:06 | Outpatient (AMB) | payer MEDICARE, SELFPAY ==
[2023-08-08 11:06] VITALS: BMI 42.4
--- NOTE | 2023-08-08 11:06 | MHC.OFFVIS ---
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 Primarily on the right side. He was evaluated by Neurology they were referred to a tertiary center where he was confirmed to have ALS. The patient does not have any respiratory complaints at this time. He still has a strong cough. Denies any choking on his foods. It is mainly the extremity weakness that limits him. Again right more than left. In the meantime the patient has been struggling with CPAP. The mask fitting is not good for him since he cannot get the old mask that he used to get before because is now up sleep. I did have an ex 30 I mask available that I did fit him for he did well with. I did call his [employer], [employer] and he is on her active with them. Therefore, the patient is not getting supplies regularly. In the meantime with now it diagnosis of acute lateral sclerosis the patient needs to be assess for evidence of any respiratory failure. I will go ahead and request pulmonary function studies to assess for any restriction and also a blood gas to assess for hypercarbia. If the patient has any evidence of hypercarbia then a noninvasive ventilator will be more effective for him in view of his neurological progressive disease that will result and further respiratory failure. 03/21/2023 the patient is here for a pulmonary follow-up visit. Overall he is doing about the same. He is using the CPAP at nighttime. Although we did check a blood gas demonstrating evidence of hypercarbic respiratory failure. She used to do is elevated. The patient does have a progressive neurological condition with ALS. Therefore in view of his worsening respiratory situation will go ahead and request a noninvasive ventilator for him. He does not need a sip and puff at this point, but, I did talked about getting a mouthpiece later as his condition progresses where he can take the noninvasive ventilator with him in use it during the daytime. Patient also had pulmonary function studies. Is reassuring that his overall lung capacity is fairly good. In addition to that the patient had a a chest x-ray that was reassuring. Will work closely with his [employer], [employer] to provide with all that he needs to maintain a good quality of life. Will have him return in 3-4 months with spirometry which will try to do with every visit. 06/27/2023 the patient has a telehealth visit today. Apparently his ALS has progressed to the point that he is not able to get out of bed therefore he is bed-bound. The patient does not have the ability to leave the house this time she therefore all the visits medical visits he is having a telehealth. He states that both his upper and lower extremities are extremity we can. He is still eating. Denies any choking episodes. He does have a cough. He is able to speak on the phone and have a normal conversation at this time. He is having hard time with his noninvasive ventilator. We obtained he states that he is not getting the right supplies. I explained to him 2 major things. The 1st thing is the importance of monitoring closely his muscular progression as appears to be moving quickly and if he does develop issues with not able to handle his secretions or swallow a he has risk for aspiration is high in the use of a noninvasive ventilator will be contraindicated. The patient and also the patient's do not feel that he is at the point of needing a tracheostomy. I explained to her my concerns as far as the progression of the disease could lead to quickly we can respiratory muscles and subsequent respiratory failure per I did reach out to the [employer] to look at the noninvasive ventilator and try to help him with the supplies to make sure that he is using it. But, also to assess he feels safe using it because if he is not safe then we have to consider a referral to a thoracic surgeon for a tracheostomy placement. Also did recommend that the patient and also his family talk about his goals of care and the tracheostomy invasive ventilation is something that he wants to pursue that we also have to make sure that we have everything in place as his condition progresses. 08/08/2023 the patient has a doubt visit today. I am speaking both to the patient and also to his . The patient has been having issues with his secretions. He has had a hard time clearing his secretions which is concerning. He does use the cough assist device and does have the positive pressure therapy at nighttime but still does not effective in clearing the secretions. In addition to that the patient is no longer able to get out of bed. He does have a very special bed that allows him to inclined and also has percussion abilities. And he has been using all the resources to try to help clear secretions and still not effective. Therefore, I did recommend they look into a tracheostomy at this point for the ability of airway clearance and subsequently in the future the ability to ventilate. The problem is the patient is currently bed-bound in the family can not lift them. I am going to reach out to his primary care doctor to see if we can get ambulance services for him in order to have a refill with a thoracic surgery for a tracheostomy. After the tracheostomy is placed the patient and the family understand that they need training for the tracheostomy in order to properly manage the trach and also deal with any emergencies. [facility] Medical History Chronic respiratory failure CKD (chronic kidney disease) Trochanteric bursitis, left hip Romero esophagus Dyslipidemia Type 2 diabetes mellitus Plaque psoriasis Stroke ANTONIA (obstructive sleep apnea) HTN (hypertension) Asthma Surgical History History of left knee surgery Hx of tonsillectomy Hx of appendectomy History of left knee replacement Family History Father Diabetes Mother Diabetes Cancer Brother Bladder cancer Social History Housing: House Alcohol intake: never Patient Tobacco Use Status: Never used Tobacco e-Cigarette/Vaping Use: Never Used Second Hand Smoke Exposure: No Advance Directives Date on File: 12/23/20 Current occupational status: retired Current occupation: right handed Cognitive needs: Yes (walker) Hearing needs: No Vision needs: Yes (glasses) Review of Systems Const Reports daytime sleepiness, Denies fever(s), Reports snoring and Reports weakness Eyes Denies change in vision ENT Denies change in voice and Denies dysphagia Card Denies chest pain, Reports dyspnea and Reports dyspnea on exertion Resp Reports chest congestion, Denies cough, Reports dyspnea, Reports dyspnea on exertion, Reports snoring and Denies wheezing GI Denies dysphagia Musc Reports as per HPI, Reports abnormal gait and Reports muscle weakness Skin/Breast Denies rash Neuro Reports as per HPI, Reports abnormal gait, Reports tremor(s) and Reports weakness Mansoor/Lymph Denies easy bleeding Aller/Immun Denies wheezing Physical Exam Vital Signs: BMI result Body Mass Index 42.4 Const General: cooperative Orientation/consciousness: patient oriented x3 Limitations: physical limitations Resp Effort & Inspection: able to speak in complete sentences Neuro General: patient oriented x3 Assessment & Plan Assessment & Plan (1) ALS (amyotrophic lateral sclerosis): Code(s): G12.21 - Amyotrophic lateral sclerosis (2) Chronic respiratory failure: Comment: evidence of hypercarbia which carries a poor prognosis and hi risk for hospital admission. Needs to start non invasive ventilation to improve gas exchange and improve prognosis. Code(s): J96.10 - Chronic respiratory failure, unspecified whether with hypoxia or hypercapnia Qualifiers: Respiratory failure complication: hypercapnia Qualified Code(s): J96.12 - Chronic respiratory failure with hypercapnia Plan continue NIV. Respiratory therapy from [facility] to reassess NIV, assessment for negative inspiratory pressure measurements if possible cough assistance HOB 30/ positional bed spirometry during next visit will refer to thoracic surgery referral from tracheostomy placement in view of not able to clear his secretions. He needs an ambulance to get him to his referral. F/U 6-8 weeks, telehealth. If his symptoms worsen he may need to go to the ED for an urgent airway evaluation. Orders: Referrals Thoracic Surgery Referral G12.21 - Amyotrophic lateral sclerosis Telehealth Telehealth Location of provider rendering services: practice address Location of patient: address on file Patient Identification confirmed using: Name, : Yes Telehealth method: voice only Patient verbally consented to treatment: Yes Patient verbally consented to billing insurance company: Yes Patient informed of any privacy concerns related to visit: Yes Coding Level of Care Code Tele Est Pt Level 5 (55842) Diagnoses ALS (amyotrophic lateral sclerosis) G12.21 Chronic respiratory failure with hypercapnia J96.12 Respiratory failure complication: hypercapnia Time Spent (min) 45
== END 2023-08-08 11:21 | disposition home or self-care (01) ==
LOC: HO.HPS 11:06
PROVIDERS: PCP Nurse Practitioner Family; Visit Provider Hospitalist
DX: G12.21 Amyotrophic lateral sclerosis (principal); J96.12 Chronic respiratory failure with hypercapnia
CPT/HCPCS: 99443

== ENCOUNTER → 2023-08-08 11:06 | Outpatient (BNVA) | payer MEDICARE, SELFPAY | PROVIDERS: PCP Nurse Practitioner Family; Visit Provider Hospitalist ==

== ENCOUNTER 2023-08-08 13:27 | Outpatient (AMB) | payer MEDICARE, SELFPAY ==
--- NOTE | 2023-08-08 13:15 | AM.OFFVISMDC ---
Intake Intake Visit Reasons: [phone], AWV [id number] Allergies methotrexate Allergy (Unknown, Verified 08/08/23 13:16) shortness of breath cats and dogs Allergy (Unknown, Uncoded 08/08/23 13:16) Unknown HPI AWV [id number] HPI Details Pt presents via telehealth for an AWV. Denies fever, chills, and dizziness. Will send MOLST form to pt's house to fill out. AWV is limited due to pt being homebound (ALS). All questions/evaluations could not be answered due to appointment being telehealth. COUNTS INCLUDE 234 BEDS AT THE [facility] Medical History Chronic respiratory failure CKD (chronic kidney disease) Trochanteric bursitis, left hip Romero esophagus Dyslipidemia Type 2 diabetes mellitus Plaque psoriasis Stroke ANTONIA (obstructive sleep apnea) HTN (hypertension) Asthma Surgical History History of left knee surgery Hx of tonsillectomy Hx of appendectomy History of left knee replacement Family History Father Diabetes Mother Diabetes Cancer Brother Bladder cancer Social History Housing: House Alcohol intake: never Patient Tobacco Use Status: Never used Tobacco e-Cigarette/Vaping Use: Never Used Second Hand Smoke Exposure: No Advance Directives Date on File: 12/23/20 Current occupational status: retired Current occupation: right handed Cognitive needs: Yes (walker) Hearing needs: No Vision needs: Yes (glasses) Questionnaire Medicare Wellness Checkup What [age] What gender do you identify with?: male During the past 4 weeks, how much have you been bothered by emotional problems such as feeling anxious, depressed, irritable, sad or downhearted, and blue?: moderately During the past 4 weeks, has your physical & emotional health limited your social activities with family, friends, neighbors, or groups?: quite a bit During the past 4 weeks, how much bodily pain have you generally had?: moderate pain During the past 4 weeks, was someone available to help you if you needed & wanted help?: yes, quite a bit During the past 4 weeks, what was the hardest physical activity you could do for at least 2 minutes?: very light Can you get to places out of walking distance without help? (For eg., can you travel alone on buses, taxis or drive your car?): No Can you go shopping for groceries or clothes without someone's help?: No Can you prepare your own meals?: No Can you do your housework without help?: No Because of any health problems, do you need the help of another person with your personal care needs such as eating, bathing, dressing or getting around the house?: Yes Can you handle your own money without help?: No During the past 4 weeks, how would you rate your health in general?: poor During the past 4 weeks how have things been going for you?: pretty bad Are you having difficulties driving your car?: not applicable, I don't use a car Do you always fasten your seat belt when you are in a car?: no During past 4 weeks, have you been bothered by the following: never: Falling or dizzy when standing up, Sexual problems?, Teeth or denture problems? and Problems using the telephone?, sometimes: Trouble eating well? and always: Tiredness or fatigue? Have you fallen 2 or more times in the past year?: Yes Are you afraid of falling?: No Are you a smoker?: no During the past 4 weeks, how many drinks of wine, beer, or other alcoholic beverages did you have?: no alcohol at all Do you exercise for about 20 minutes 3 or more times a week?: no, I usually do not exercise this much Have you been given information to help with the following?: yes: Keeping track of your medications? and no: Hazards in your house that might hurt you? How often do you have trouble taking medicines the way you have been told to take them?: I always take medicine as prescribed How confident are you that you can control & manage most of your health problems?: not very confident What is your race?: White Mini Mental State Exam (MMSE) Orientation What is the (year) (season) (date) (day) (month)?: year (2022) Where are we (state) (county) (town or city) (hospital) (floor)?: state (ma) Attention & Calculation (CHOOSE ONE) Spell WORLD backwards (DLROW): 5 letters Language Show patient a wristwatch & ask what it is. Repeat for pencil.: watch and pencil Ask the patient to repeat the phrase 'No ifs, ands, or buts' after you.: correct Score Score: 10 Activity of Daily Living Bathing - sponge bath, tub bath or shower: receives help in bathing more than one body part (or not bathed) Dressing - getting clothes from closets & drawers, including inner/outer garments & fasteners.: receives help getting clothes or getting dressed, or stays undressed Toileting - going to the 'toilet room' for urine/bowel elimination & cleaning self/arranging clothes: does not go to room termed toilet for elimination process Continence: supervision helps urination/bowel control; catheter use; incontinent Feeding: receives help feeding or is partly/completely fed by tubes/intravenous Total Score: 5 Using telephone: dependent Traveling: dependent Shopping: dependent Preparing meals: dependent Housework: dependent Taking medicine: dependent Managing money: dependent PHQ-9 Over the last 2 weeks, how often have you been bothered by any of the following problems? 1. Little interest or pleasure in doing things: nearly every day 2. Feeling down, depressed, or hopeless: nearly every day 3. Trouble falling or staying asleep, or sleeping too much: nearly every day 4. Feeling tired or having little energy: nearly every day 5. Poor appetite or overeating: more than half the days 6. Feeling bad about yourself - or that you are a failure or have let yourself or your family down: nearly every day 7. Trouble concentrating on things, such as reading the newspaper or watching television: nearly every day 8. Moving or speaking so slowly that other people could have noticed. Or the opposite - being so fidgety or restless that you have been moving around a lot more than usual: more than half the days 9. Thoughts that you would be better off or of hurting yourself in some way: several days Total score: 23 Depression Screening Interpretation: Positive Depression Screening Follow-up: Existing condition Depression Screening Done: Yes 23945 - PHQ-9 Billing: Yes Source: Developed by Drs. Juice Samaniego, Mercy Kimble, Eliseo Mccollum and colleagues, with an educational kevin from [employer]. Review of Systems Const Reports as per HPI Physical Exam Const General: cooperative Orientation/consciousness: patient oriented x3 Neuro General: patient oriented x3 Assessment & Plan Assessment & Plan (1) Encounter for annual wellness visit (AWV) in Medicare patient: Code(s): Z00.00 - Encounter for general adult medical examination without abnormal findings Plan The patient agreed to the use of a medical records supervisor for this encounter. Scribed for JAN Rasheed by Alie Pittman medical records supervisor, on 08/08/2023 at 13:45 EST. Quality Reporting (2019) Depression/Bipolar (159/160/161/177) PHQ-9: Total score: 23 Telehealth Telehealth Location of provider rendering services: practice address Location of patient: address on file Patient Identification confirmed using: Name, : Yes Telehealth method: video Patient verbally consented to treatment: Yes Patient verbally consented to billing insurance company: Yes Patient informed of any privacy concerns related to visit: Yes Minutes spent on Phone/Video with Pt.: 10 Coding Level of Care Code Medicare First (G0438) Diagnoses Encounter for annual wellness visit (AWV) in Medicare patient Z00.00 Advance Care Planning Forms completed: Health Care Proxy (on file), MOLST (will send, via mail, this sheet, then to be sent back) and Living will (done) Actual minutes spent: 5
== END 2023-08-08 14:32 | disposition home or self-care (01) ==
LOC: HO.HMGC 13:27
PROVIDERS: PCP Nurse Practitioner Family; Visit Provider Nurse Practitioner Family
DX: Z00.00 Encounter for general adult medical examination without abnormal findings (principal)
CPT/HCPCS: G0438

== ENCOUNTER 2023-08-14 12:48 | Outpatient (AMB) | payer MEDICARE, SELFPAY ==
[2023-08-14 11:40] VITALS: BP 139/83; PULSE 81; BMI 42.4
--- NOTE | 2023-08-14 11:40 | MHC.OFFVIS ---
Intake Vital Signs 08/14/23 11:40 Height 5 ft 11 in Weight 304 lb BMI 42.4 BP 139/83 Blood Pressure Location Lt brachial Position Sitting Pulse 81 Intake Visit Reasons: Tracheostomy consult Intake Note: Patient referred by Dr. Franklin (pulmonology) for tracheostomy. Today's visit is via telephone. Patient c/o: trouble clearing mucous from throat. Operator Control Room Required: No Accompanied by: Patricia Boone Allergies methotrexate Allergy (Unknown, Verified 08/08/23 13:16) shortness of breath cats and dogs Allergy (Unknown, Uncoded 08/08/23 13:16) Unknown HPI HPI Comments History of Present Illness Details Telemedicine conference with patient and his regarding tracheostomy placement and gastrostomy tube placement because of progressively worsening Tri Gehrig's disease . Patient was also discussed with the patient's supervisor carton and can supply, Dr. Franklin. Chart was reviewed and patient evaluated via telemedicine. [facility] Medical History Chronic respiratory failure CKD (chronic kidney disease) Trochanteric bursitis, left hip Romero esophagus Dyslipidemia Type 2 diabetes mellitus Plaque psoriasis Stroke ANTONIA (obstructive sleep apnea) HTN (hypertension) Asthma Surgical History History of left knee surgery Hx of tonsillectomy Hx of appendectomy History of left knee replacement Family History Father Diabetes Mother Diabetes Cancer Brother Bladder cancer Social History Housing: House Alcohol intake: never Patient Tobacco Use Status: Never used Tobacco e-Cigarette/Vaping Use: Never Used Second Hand Smoke Exposure: No Advance Directives Date on File: 12/23/20 Current occupational status: retired Current occupation: right handed Cognitive needs: Yes (walker) Hearing needs: No Vision needs: Yes (glasses) Physical Exam Vital Signs: Last Vital Signs Pulse 81 08/14/23 11:40 BP 139/83 08/14/23 11:40 BMI result Body Mass Index 42.4 Assessment & Plan Assessment & Plan (1) Respiratory failure: Code(s): J96.90 - Respiratory failure, unspecified, unspecified whether with hypoxia or hypercapnia (2) Dysphagia: Code(s): R13.10 - Dysphagia, unspecified Plan Risks, benefits, and alternatives of 1. Tracheostomy tube placement 2. Peg tube placement reviewed with the patient his and included but not limited to bleeding, infection, numbness, pain, scarring and the patient wishes to proceed. All questions answered. Current plan is to arrange for this on a day which is convenient for the patient. I will discuss the case with Dr. Mckenzie will perform the PEG portion of the procedure. Coding Level of Care Code New Pt Level 5 (37090) Diagnoses Respiratory failure J96.90 Dysphagia R13.10
== END 2023-08-14 13:37 | disposition home or self-care (01) ==
LOC: HO.HGS 12:48
PROVIDERS: PCP Nurse Practitioner Family; Referring Provider Hospitalist; Visit Provider Surgery
DX: J96.90 Respiratory failure, unspecified, unspecified whether with hypoxia or hypercapnia (principal); R13.10 Dysphagia, unspecified
CPT/HCPCS: 99443

== ENCOUNTER → 2023-08-14 12:48 | Outpatient (BNVA) | payer MEDICARE, SELFPAY | PROVIDERS: PCP Nurse Practitioner Family; Referring Provider Hospitalist; Visit Provider Surgery ==

== ENCOUNTER → 2023-09-15 08:16 | Outpatient (BNV) | payer MEDICARE, SELFPAY | PROVIDERS: PCP Nurse Practitioner Family; Visit Provider Internal Medicine Pulmonary Disease | DX: G12.21 Amyotrophic lateral sclerosis (principal); G47.33 Obstructive sleep apnea (adult) (pediatric); E11.9 Type 2 diabetes mellitus without complications; Z93.0 Tracheostomy status; Z93.1 Gastrostomy status | CPT/HCPCS: 99223 ==

== ENCOUNTER → 2023-09-15 08:16 | Outpatient (BNV) | payer MEDICARE, SELFPAY | PROVIDERS: PCP Nurse Practitioner Family; Visit Provider Surgery | DX: G12.21 Amyotrophic lateral sclerosis (principal); Z93.1 Gastrostomy status; Z93.0 Tracheostomy status | CPT/HCPCS: 31600; 43246; 99024; 99221; 99232; 99238; 99499 ==

== ENCOUNTER → 2023-09-15 08:17 | Outpatient (BNV) | payer MEDICARE, SELFPAY | PROVIDERS: PCP Nurse Practitioner Family; Visit Provider Internal Medicine | DX: Z01.818 Encounter for other preprocedural examination (principal) | CPT/HCPCS: 93010 ==

== ENCOUNTER 2023-09-16 08:13 | Inpatient (IN) | payer MEDICARE, SELFPAY ==
[2023-09-11 13:49] VITALS: BMI 43.0
--- NOTE | 2023-09-14 09:43 | HO.ANESPROP2 ---
Documented by User: Criss Knott NP 09/14/23 09:50 HPI - Anesthesia Eval Consult details Narrative: 68yo M for OPEN Tracheostomy,EXTRA LONG TRACH, PEG Insert ALS PMFSH Active Problems Active Problems: All Active Problems (Updated 09/11/23 @ 13:49 by Kairs Parrish RN) Dysphagia (Acute) Respiratory failure (Acute) Encounter for annual wellness visit (AWV) in Medicare patient (Acute) Fall (Acute) Gout (Acute) Weakness (Acute) Incomplete bladder emptying (Acute) Enlarged prostate (Acute) ALS (amyotrophic lateral sclerosis) (Acute) Hematuria (Acute) Compression fx, lumbar spine (Acute) Urinary incontinence (Acute) Herniated lumbar intervertebral disc (Acute) Central stenosis of spinal canal (Acute) Screening for prostate cancer (Acute) Weakness of right lower extremity (Acute) Chronic lower back pain (Acute) Low back pain (Acute) Diabetes mellitus (Acute) Rotator cuff arthropathy of right shoulder (Acute) Weakness of right lower extremity (Acute) Injury of right rotator cuff (Acute) Contusion of right shoulder (Acute) Shoulder fracture, right (Acute) Right shoulder pain (Acute) Dyslipidemia (Acute) Microalbuminuria (Acute) Skin abrasion (Acute) Toe abrasion (Acute) Sacroiliitis (Acute) Osteoarthritis of right hip (Acute) Left hip pain (Acute) Screening PSA (prostate specific antigen) (Acute) Left knee pain (Acute) Chronic respiratory failure (Acute) ANTONIA (obstructive sleep apnea) (Acute) HTN (hypertension) (Acute) Trochanteric bursitis, left hip (Acute) Type 2 diabetes mellitus (Acute) Past Medical History Medical History BPH (benign prostatic hyperplasia) Dysphagia Arthritis ALS (amyotrophic lateral sclerosis) Chronic respiratory failure CKD (chronic kidney disease) Trochanteric bursitis, left hip Romero esophagus Dyslipidemia Type 2 diabetes mellitus Plaque psoriasis Stroke ANTONIA (obstructive sleep apnea) HTN (hypertension) Asthma Family History Family History Father Diabetes Mother Diabetes Cancer Brother Bladder cancer Surgical History Surgical History History of esophagogastroduodenoscopy (EGD) H/O colonoscopy History of left knee surgery Hx of tonsillectomy Hx of appendectomy History of left knee replacement Social History Social History Housing: House Are you a primary neonatal critical care nurse to a significant other at home: No Do you presently have visiting nurse or other home services: No ( is caregiver) Alcohol intake: never Comment: bedbound due to ALS Patient Tobacco Use Status: Never used Tobacco e-Cigarette/Vaping Use: Never Used Second Hand Smoke Exposure: No Use of substances other than those prescribed or required for medical reasons: No Have you been hit, kicked, punched, or otherwise hurt by someone within the past year? If so, by whom?: No Advance Directives: No Advance Directives Information Provided: Yes Advance Directives on File: Yes Advance Directives Date on File: 12/23/20 Recently lost weight without trying: No Eating poorly because of decreased appetite: No Nutrition Risks: Difficulty swallowing Current occupational status: retired Current occupation: right handed Cognitive needs: Yes (walker) Hearing needs: No Vision needs: Yes (glasses) Meds Allergies Allergy/AdvReac Type Severity Reaction Status Date / Time methotrexate Allergy Intermediate shortness Verified 09/11/23 13:03 of breath cats and dogs Allergy Intermediate Itching Uncoded 09/11/23 13:03 Home Medications Medication Instructions Recorded Confirmed Last Taken Type Bifidobacterium infantis 4 mg 4 mg PO DAILY 12/23/20 09/11/23 Unknown History capsule (Align) ascorbate calcium (vitamin C) 500 1,000 mg PO DAILY 12/23/20 09/11/23 Unknown History mg tablet aspirin 81 mg tablet,delayed 81 mg PO DAILY 12/23/20 09/11/23 09/14/23 History release coenzyme Q10 100 mg capsule (Co 100 mg PO DAILY 12/23/20 09/11/23 Unknown History Q-10) fexofenadine 180 mg tablet 180 mg PO Q24H 12/23/20 09/11/23 Unknown History (Lesli Allergy) jewuibxcbmhd-vopzqjlk-pxuzqr tablet 1 tab PO DAILY 12/23/20 09/11/23 Unknown History edaravone 105 mg/5 mL oral 105 mg PO DAILY 08/30/22 09/11/23 Unknown History suspension (Radicava ORS) riluzole 50 mg tablet 50 mg PO BID 08/30/22 09/11/23 09/15/23 History gabapentin 600 mg tablet 600 mg PO TID 01/24/23 09/11/23 Unknown History CPAP (CPAP Machine/Device) 03/21/23 06/30/23 Unknown History sodium phenylbutyrate 3 1 packet PO BID 06/27/23 09/11/23 Unknown History gram-taurursodiol 1 gram oral powder packet (Relyvrio) tizanidine 2 mg tablet 2 mg PO TID 06/27/23 09/11/23 Unknown History Exam Height,Weight and Vital Signs: Height 5 ft 11 in Weight 139.706 kg Pertinent Lab Results Pertinent Lab Results: Laboratory Tests 05/04/23 11:45 WBC 7.8 Hgb 13.7 L Hct 40.1 L Plt Count 186 Sodium 139 Potassium 3.7 Chloride 104 Carbon Dioxide 21 L BUN 17 H Creatinine 0.63 Assessment and Plan Assessment Anesthesia Assessment: Chart Reviewed Documented by User: Rocio Su MD 09/15/23 10:36 [facility] Past Medical History Medical History BPH (benign prostatic hyperplasia) Dysphagia Arthritis ALS (amyotrophic lateral sclerosis) Chronic respiratory failure CKD (chronic kidney disease) Trochanteric bursitis, left hip Romero esophagus Dyslipidemia Type 2 diabetes mellitus Plaque psoriasis Stroke ANTONIA (obstructive sleep apnea) HTN (hypertension) Asthma Family History Family History Father Diabetes Mother Diabetes Cancer Brother Bladder cancer Surgical History Surgical History History of esophagogastroduodenoscopy (EGD) H/O colonoscopy History of left knee surgery Hx of tonsillectomy Hx of appendectomy History of left knee replacement History of Problems with Anesthesia: No Social History Social History Housing: House Are you a primary neonatal critical care nurse to a significant other at home: No Do you presently have visiting nurse or other home services: No ( is caregiver) Alcohol intake: never Comment: bedbound due to ALS Patient Tobacco Use Status: Never used Tobacco e-Cigarette/Vaping Use: Never Used Second Hand Smoke Exposure: No Use of substances other than those prescribed or required for medical reasons: No Have you been hit, kicked, punched, or otherwise hurt by someone within the past year? If so, by whom?: No Advance Directives: No Advance Directives Information Provided: Yes Advance Directives on File: Yes Advance Directives Date on File: 12/23/20 Recently lost weight without trying: No Eating poorly because of decreased appetite: No Nutrition Risks: Difficulty swallowing Current occupational status: retired Current occupation: right handed Cognitive needs: Yes (walker) Hearing needs: No Vision needs: Yes (glasses) Meds Allergies Allergy/AdvReac Type Severity Reaction Status Date / Time methotrexate Allergy Intermediate shortness Verified 09/11/23 13:03 of breath cats and dogs Allergy Intermediate Itching Uncoded 09/11/23 13:03 Home Medications Medication Instructions Recorded Confirmed Last Taken Type Bifidobacterium infantis 4 mg 4 mg PO DAILY 12/23/20 09/11/23 Unknown History capsule (Align) ascorbate calcium (vitamin C) 500 1,000 mg PO DAILY 12/23/20 09/11/23 Unknown History mg tablet aspirin 81 mg tablet,delayed 81 mg PO DAILY 12/23/20 09/11/23 09/14/23 History release coenzyme Q10 100 mg capsule (Co 100 mg PO DAILY 12/23/20 09/11/23 Unknown History Q-10) fexofenadine 180 mg tablet 180 mg PO Q24H 12/23/20 09/11/23 Unknown History (Lesli Allergy) kdmumhjqjyto-qpgtmiej-mmodaf tablet 1 tab PO DAILY 12/23/20 09/11/23 Unknown History edaravone 105 mg/5 mL oral 105 mg PO DAILY 08/30/22 09/11/23 Unknown History suspension (Radicava ORS) riluzole 50 mg tablet 50 mg PO BID 08/30/22 09/11/23 09/15/23 History gabapentin 600 mg tablet 600 mg PO TID 01/24/23 09/11/23 Unknown History CPAP (CPAP Machine/Device) 03/21/23 06/30/23 Unknown History sodium phenylbutyrate 3 1 packet PO BID 06/27/23 09/11/23 Unknown History gram-taurursodiol 1 gram oral powder packet (Relyvrio) tizanidine 2 mg tablet 2 mg PO TID 06/27/23 09/11/23 Unknown History Exam Airway Mallampati Class: III TM Dist: >3cm Neck ROM: Limited Denture: Upper Loose/Missing/Broken Teeth: Yes, Upper and Lower Heart: RRR Lungs: CTA Assessment and Plan Assessment Anesthesia Assessment: Anesthesia Plan Discussed Final Anesthetic Review History of Problems with Anesthesia: No NPO: Yes ASA Class: IV Final Preanesthetic Review: Meds/Allgs Chart Reviewed, Consent Obtained/Reviewed and Anes Risks/Benef Reviewed Patient Risk: High Procedure Risk: High Anesthetic Plan Anesthetic Plan: GA Disposition: Inp. Admit - ICU
--- NOTE | 2023-09-14 20:58 | MHC.SHP ---
Pre-Procedural Eval Section A - 24 Hr Update-Section A only Date of Service: 09/14/23 The patient is an INPATIENT: Yes Changes since office visit: No Cold of Flu in the past 2 weeks, No New Medical Problems, No Changes in Medication and No Patient answered all questions The patient has been examined within 24 hours of the surgical procedure. The History & Physical has been completed within 30 days and I have reviewed it.: Yes Section B - Complete if H&P > 30 days Chief Complaint: Respiratory failure, unspecified,dysphagia Allergies: Allergies Allergy/AdvReac Type Severity Reaction Status Date / Time methotrexate Allergy Intermediate shortness Verified 09/11/23 13:03 of breath cats and dogs Allergy Intermediate Itching Uncoded 09/11/23 13:03 Plan I have reviewed the history and physical and performed a pertinent physical examination on my patient. No changes have occurred unless specified. Time Spent With Patient Time: Total time managing care of this patient today ____ minutes.
[2023-09-15] VITALS (22 sets, daily range): BP systolic 100–174; BP diastolic 43–94; PULSE 75–102; RESP 12–21; TEMP 35.9–37.6; O2SAT 90–97; BMI 44.0; BMI 44.3
--- NOTE | 2023-09-15 08:17 | ECG_ITS ---
Test Reason : preop Blood Pressure : / mmHG Vent. Rate : 071 BPM Atrial Rate : 000 BPM P-R Int : 000 ms QRS Dur : 116 ms QT Int : 440 ms P-R-T Axes : 000 -32 079 degrees QTc Int : 478 ms likely Normal sinus rhythm Left axis deviation Septal infarct , age undetermined Abnormal ECG No previous ECGs available Referred By: Criss Knott Electronically Signed By:KAYLA BHANDARI
[2023-09-15] MEDS: Lactated Ringers 1,000 ML 100 ML IVCONT ×2 (08:57→16:45)
[2023-09-15 08:59] LABS: Glucose, Whole Blood 131 mg/dL (60-115)
--- NOTE | 2023-09-15 10:26 | PC.NURSE ---
Full body skin check completed with staff assist. Patient's skin looks great head to toe.
--- NOTE | 2023-09-15 10:37 | PM.EVENT ---
Event Note Date of Service: 09/15/23 Event Note: I was requested to place a PEG tube for the patient H&P reviewed Patient has worsening dysphagia secondary to ALS Morbidly obese but no surgical scars on the abdomen He has history of appendectomy I reviewed with the patient the technique of the planned procedure. I discussed the risks of peg tube placement including but not limited to bleeding, infections, bowel injury, tube dislodgement, tube leak, as well as the benefits and alternatives. He has given consent Dr. Ring is doing the tracheostomy Time Spent With Patient Time: Total time managing care of this patient today ____ minutes.
[2023-09-15] MEDS: ceFAZolin Sodium/Dextrose,Iso 2 GM/50 ML PIGGYBACK IV (11:40)
--- NOTE | 2023-09-15 12:28 | W.PM.OPN ---
Operative Note Operative Note Date of Service: 09/15/23 Narrative: Preoperative diagnosis: [] Progressive ALS, respiratory failure Postop diagnosis: [] The same Procedure [] open tracheostomy placement Surgeon: Elmira Ring Machine Fancy Stitcher: Adwoa Medley Type of Anesthesia: [] General Indication for surgery: The As noted above. Number 8 long , cuffed tracheostomy tube placed. Very corpulent patient. Patient was done sequentially with PEG tube placement by Dr. Mckenzie. Please refer to his op note regarding this portion of the procedure Findings: [] Patient brought to the operating room, placed on operative table in supine position, after an adequate level of general anesthesia was induced, patient had a shoulder roll placed, was appropriate position, the neck and chest area were prepped and draped in usual sterile fashion. Using a transverse incision approximately 2 fingerbreadths above the sternal notch, this carried down through skin, subcutaneous tissue, and platysma muscle. Linea cervicalis was opened and strap muscles retracted laterally. Isthmus of thyroid was identified, and clamps placed on either side of this and 2-0 suture ligature of silk used after the isthmus was divided. Tracheal rings were counted. Between the 2nd and 3rd ring, a transverse tracheotomy incision was made and concurrent with withdrawal of the endotracheal tube just above the tracheotomy site, a 8. Long cuffed tracheostomy tube was advanced to the distal trachea. This was connected to the anesthesia tubing with good end-tidal CO2 and O2 saturations. Wound was irrigated, secured hemostasis, and closed in the following manner; interrupted inverted dermal 3-0 Vicryl sutures were used to close the skin on either side of tracheostomy site. Tracheostomy was then secured to the skin using 2-0 silk sutures through its flange. Next a Velcro strap was placed and secured. For this portion of the procedure, the sponge, instrument, needle counts reported correct. Patient tolerated this well. EBL minimal. Wound was infiltrated 0.5% Marcaine at completion. Patient was then positioned in for PEG tube placement per Dr. Mckenzie's dictation.
--- NOTE | 2023-09-15 12:37 | W.PM.OPN ---
Operative Note Operative Note Date of Service: 09/15/23 Narrative: Preop diagnosis: ALS, dysphagia Postop diagnosis: The same Procedure: PEG tube placement Surgeon: Peter Mckenzie MD 1st photographer assistant: SHERWIN Medley The patient is a 68-year-old male, with ALS, here for trach tube placement and PEG tube placement. I have been requested to do the PEG tube part. I explained to the technique of the procedure as well as the risks, benefits, and alternatives. He was brought to the operating room. He had undergone tracheostomy tube placement which were uneventful. He was placed in a head up position. I proceeded to do the endoscopy by inserting the scope fill the of into the oropharynx. The vocal cords were visualized. The esophageal slit was seen posterior to this. The esophagus lead was intubated. The scope was gently advanced through the entire length of the esophagus in the stomach. The stomach was insufflated. We were able to easily see transillumination in the epigastric area. Indentation of the anterior stomach wall was seen as well with the finger pressed on the epigastric area. We chose this area for PEG tube placement. This was prepped and draped and infiltrated with lidocaine 1%. A small stab incision was made. A large bore needle was inserted and this was seen in the lumen of the stomach. The guidewire was placed through the needle. The guidewire was grasped with a snare. We then pulled the guidewire along with the endoscope through the oral cavity. The PEG tube was pulled with the guidewire until this was snug on the anterior stomach wall. I reinserted the scope into the stomach. The inner bolster appeared to be in good position. There was no bleeding. I withdrew the scope completely. The attachments of the feeding tube were placed and the procedure was completed. The patient tolerated the procedure well. There were no immediate complications. The patient was extubated without difficulty and transferred to the recovery room with stable vital signs.
--- NOTE | 2023-09-15 13:12 | PHA.MEDREC ---
Pharmacy Consult ? Medication Reconciliation Pharmacy has completed the medication reconciliation. Reviewed med rec done by nursing
--- NOTE | 2023-09-15 16:27 | P.HPCC_ITS ---
History of Present Illness Date of Service: 09/15/23 Chief Complaint: ALS status post elective trach/PEG placement 68-year-old gentleman with underlying ALS, ANTONIA on CPAP with worsening ability to clear secretions now status post an elective tracheostomy and gastrostomy placement being monitored in the intensive care unit in the postop period. Review of Systems Constitutional: Constitutional: Denies daytime sleepiness, Denies excessive sweating, Denies fatigue, Denies fever(s), Denies lethargy, Denies malaise, Denies night sweats, Denies snoring and Denies weight loss Eyes: Eyes: Denies blurry vision and Denies itchy eyes ENT: Denies nasal congestion, Denies post nasal drip, Denies sinus pain, Denies sinus pressure and Denies other ( Thrush) Cardiovascular: Cardiovascular: Denies chest pain, Denies pedal edema, Denies dyspnea, Denies orthopnea and Denies paroxysmal nocturnal dyspnea Respiratory: Respiratory: Denies cough, Denies hemoptysis, Reports excessive phlegm production, Denies dyspnea, Denies snoring and Denies wheezing Gastrointestinal: Gastrointestinal: Denies abdominal pain and Denies heartburn Musculoskeletal: Musculoskeletal: Denies joint swelling Integumentary/Breasts: Skin/Breast: Denies rash Neurologic: Denies memory loss and Denies seizure-like activity Psychiatric: Psychiatric: Denies abnormal sleep pattern and Denies memory loss Endocrine: Endocrine: Denies excessive sweating, Denies fatigue and Denies heat intolerance Hematologic/Lymphatic: Hematologic/Lymphatic: Denies easy bruising Allergic/Immunologic: Allergic/Immunologic: Denies itchy eyes, Denies seasonal rhinorrhea and Denies wheezing PMFSH Past Medical History Medical History BPH (benign prostatic hyperplasia) Dysphagia Arthritis ALS (amyotrophic lateral sclerosis) Chronic respiratory failure CKD (chronic kidney disease) Trochanteric bursitis, left hip Romero esophagus Dyslipidemia Type 2 diabetes mellitus Plaque psoriasis Stroke ANTONIA (obstructive sleep apnea) HTN (hypertension) Asthma Family History Family History Father Diabetes Mother Diabetes Cancer Brother Bladder cancer Surgical History Surgical History History of esophagogastroduodenoscopy (EGD) H/O colonoscopy History of left knee surgery Hx of tonsillectomy Hx of appendectomy History of left knee replacement Social History Social History Housing: House Are you a primary vehicle care specialist to a significant other at home: No Do you presently have visiting nurse or other home services: No ( is caregiver) Alcohol intake: never Comment: counts correct Patient Tobacco Use Status: Never used Tobacco e-Cigarette/Vaping Use: Never Used Second Hand Smoke Exposure: No Use of substances other than those prescribed or required for medical reasons: No Have you been hit, kicked, punched, or otherwise hurt by someone within the past year? If so, by whom?: No Advance Directives: No Advance Directives Information Provided: Yes Advance Directives on File: Yes Advance Directives Date on File: 12/23/20 Recently lost weight without trying: No Eating poorly because of decreased appetite: No Nutrition Risks: Difficulty swallowing Current occupational status: retired Current occupation: right handed Cognitive needs: Yes (walker) Hearing needs: No Vision needs: Yes (glasses) Meds Allergies Allergy/AdvReac Type Severity Reaction Status Date / Time methotrexate Allergy Intermediate shortness Verified 09/11/23 13:03 of breath cats and dogs Allergy Intermediate Itching Uncoded 09/11/23 13:03 Active Medications: Current Medications Acetaminophen (Acetaminophen 325 Mg Tablet) 650 mg PO Q6H PRN PRN Reason: fever, mild pain Amlodipine Besylate (Amlodipine Besylate 10 Mg Tablet) 10 mg PO DAILY [facility]; Protocol Aspirin (Aspirin Enteric Coated 81 Mg Tablet.Dr) 81 mg PO DAILY [facility] Atorvastatin Calcium (Atorvastatin Calcium 80 Mg Tablet) 80 mg PO DAILY [facility] Bethanechol Chloride (Bethanechol Chloride 25 Mg Tablet) 50 mg PO BID [facility] Dextrose (Dextrose 50 % 25 Gm/50 Ml Syringe) 25 gm IVPUSH Q15M PRN; Protocol PRN Reason: per Hypoglycemia Standing Ord. Finasteride (Finasteride 5 Mg Tablet) 5 mg PO DAILY [facility] Gabapentin (Gabapentin 600 Mg Tablet) 600 mg PO TID [facility] Glucose (Glucose Gel 15 Gm Gel..Gram.) 15 gm PO Q15M PRN; Protocol PRN Reason: per Hypoglycemia Standing Ord. Heparin Sodium (Porcine) (Heparin Sodium,Porcine 5,000 Unit/Ml Vial) 5,000 unit SUBCUT Q12H [facility] Hydrochlorothiazide (Hydrochlorothiazide 25 Mg Tablet) 25 mg PO DAILY [facility]; Protocol Lactated Ringer's (Lr) 1,000 mls @ 100 mls/hr IVCONT .Q10H [facility] Last Admin: 09/15/23 08:57 Dose: 100 mls/hr Insulin Human Lispro (Insulin Lispro 100 Unit/Ml 3 Ml Vial) 0 unit SUBCUT QIDACHS [facility]; Protocol Losartan Potassium (Losartan Potassium 50 Mg Tablet) 50 mg PO DAILY [facility]; Protocol Morphine Sulfate (Morphine Sulfate 2 Mg/Ml Cartridge) 4 mg IVPUSH Q4H PRN; Protocol PRN Reason: Pain, Severe (Pain Scale 7-10) Non-Formulary Medication (Edaravone [Radicava Ors]) 105 mg PO DAILY [facility] Non-Formulary Medication (Riluzole) 50 mg PO BID [facility] Omeprazole (Omeprazole 20 Mg Capsule.Dr) 20 mg PO DAILY@0630 [facility] Ondansetron HCl (Ondansetron Hcl 4 Mg/2 Ml Vial) 4 mg IVPUSH Q8H PRN PRN Reason: Nausea Sertraline HCl (Sertraline Hcl 100 Mg Tablet) 100 mg PO DAILY [facility] Sodium Chloride (0.9 % Sodium Chloride Flush 3 Ml Syringe) 3 ml IVFLUSH QSHIFT [facility] Tizanidine HCl (Tizanidine Hcl 4 Mg Tablet) 2 mg PO TID [facility] Tramadol HCl (Tramadol Hcl 50 Mg Tablet) 50 mg PO Q4H PRN PRN Reason: Pain, Moderate(Pain Scale 4-6) Home Medications Medication Instructions Recorded Confirmed Last Taken Type Bifidobacterium infantis 4 mg 4 mg PO DAILY 12/23/20 09/11/23 Unknown History capsule (Align) ascorbate calcium (vitamin C) 500 1,000 mg PO DAILY 12/23/20 09/11/23 Unknown History mg tablet aspirin 81 mg tablet,delayed 81 mg PO DAILY 12/23/20 09/11/23 09/14/23 History release coenzyme Q10 100 mg capsule (Co 100 mg PO DAILY 12/23/20 09/11/23 Unknown History Q-10) fexofenadine 180 mg tablet 180 mg PO Q24H 12/23/20 09/11/23 Unknown History (Lesli Allergy) hvtkrnewwiyp-yahxxwli-hwlwfp tablet 1 tab PO DAILY 12/23/20 09/11/23 Unknown History edaravone 105 mg/5 mL oral 105 mg PO DAILY 08/30/22 09/11/23 Unknown History suspension (Radicava ORS) riluzole 50 mg tablet 50 mg PO BID 08/30/22 09/11/23 09/15/23 History gabapentin 600 mg tablet 600 mg PO TID 01/24/23 09/11/23 Unknown History CPAP (CPAP Machine/Device) 03/21/23 06/30/23 Unknown History sodium phenylbutyrate 3 1 packet PO BID 06/27/23 09/11/23 Unknown History gram-taurursodiol 1 gram oral powder packet (Relyvrio) tizanidine 2 mg tablet 2 mg PO TID 06/27/23 09/11/23 Unknown History Physical Exam Vital Signs: Vital Signs: Last Vital Signs Temp 97.3 F 09/15/23 13:40 Pulse 94 09/15/23 15:25 Resp 18 09/15/23 15:25 BP 141/82 H 09/15/23 15:25 Pulse Ox 94 09/15/23 15:25 O2 Del Method Trach Collar 09/15/23 15:25 O2 Flow Rate 5 09/15/23 15:25 FiO2 28 09/15/23 15:25 BMI result Body Mass Index 44.0 Const: General: no acute distress, alert and awake Nutritional Appearance: obese Eyes: Sclerae: sclerae normal EOM: EOMs intact bilaterally Neck: Neck: Yes no lymphadenopathy, Yes trachea midline, Yes supple and Yes tracheostomy present (On tracheal collar) Resp: Effort & Inspection: normal respiratory effort and no respiratory distress Auscultation: clear to auscultation bilaterally Cardio: Rate: regular rate Rhythm: regular rhythm Heart sounds: no gallops, no murmurs and no rubs GI: Inspection: Yes G-tube present Palpation (GI): Soft to palpation and Other GI palpation findings present ( Nontender) Auscultation: normal bowel sounds Extrem: General: Yes no pedal edema, No clubbing and No cyanosis Results Labs Labs: Laboratory Results - last 24 hr 09/15/23 08:53 POC Glucose 131 H Imaging Radiologist's Impressions: Impressions Chest X-Ray 09/15/23 13:51 IMPRESSION: Newly placed tracheostomy with low lung volume Assessment and Plan (1) ALS (amyotrophic lateral sclerosis): Status: Acute (2) ANTONIA (obstructive sleep apnea): Status: Acute (3) Type 2 diabetes mellitus: Status: Acute (4) Morbid obesity: Status: Acute (5) Status post tracheostomy: Status: Acute (6) Status post gastrostomy: Status: Acute Plan Assessment: 68-year-old gentleman with underlying ALS and progressive difficulty handling secretions now postop day 0 after an elective tracheostomy and gastrostomy monitored in the intensive care unit Plan: Neuro: Underlying ALS on edaravone and riluzole Cardiac: No acute issues. Pulmonary: Status post elective tracheostomy, now on core, continue to titrate down as tolerated. Renal: No acute issues. Endo: No acute issues. Underlying diabetes mellitus. GI: Status post elective parenteral gastrostomy. ID: No acute issues Heme/Onc: No acute issues. Psych: No acute issues. Miscellaneous: No acute issues. Prophylaxis: Heparin Diet: NPO
[2023-09-15] MEDS: 0.9 % Sodium Chloride Flush 3 ML SYRINGE IVFLUSH ×2 (16:45→20:35)
[2023-09-15 16:48] LABS: Glucose, Whole Blood 162 mg/dL (60-115)
[2023-09-15] MEDS: Morphine Sulfate 2 MG/ML CARTRIDGE 4 MG IVPUSH (17:04)
[2023-09-15 20:11] LABS: Glucose, Whole Blood 169 mg/dL (60-115)
[2023-09-15] MEDS: TiZANidine HCL 4 MG TABLET 2 MG PO (20:36)
[2023-09-15] MEDS: Bethanechol Chloride 25 MG TABLET 50 MG PO (20:38)
[2023-09-15] MEDS: Gabapentin 600 MG TABLET PO (20:38)
[2023-09-16] VITALS (21 sets, daily range): BP systolic 94–134; BP diastolic 54–74; PULSE 65–98; RESP 15–21; TEMP 36.2–37.4; O2SAT 90–96; BMI 44.0
--- NOTE | ~2023-09-16 | XR_ITS ---
EXAMINATION: XR CHEST CLINICAL INFORMATION: Status post tracheostomy COMPARISON: 03/02/2020 TECHNIQUE: Frontal view of the chest was obtained. FINDINGS: There is low lung volume with mild cardiomegaly. There is newly placed tracheostomy tube with the tip 2.6 cm above the mara. XR/XR chest 1V IMPRESSION: Newly placed tracheostomy with low lung volume
[2023-09-16] MEDS: Morphine Sulfate 2 MG/ML CARTRIDGE 4 MG IVPUSH ×4 (01:42→21:13)
[2023-09-16] MEDS: traMADoL HCL 50 MG TABLET PO ×3 (03:31→16:00)
[2023-09-16] MEDS: Omeprazole 20 MG CAPSULE.DR PO (05:33)
[2023-09-16] MEDS: 0.9 % Sodium Chloride Flush 3 ML SYRINGE IVFLUSH ×3 (07:34→21:13)
[2023-09-16 07:37] LABS: Glucose, Whole Blood 138 mg/dL (60-115)
--- NOTE | 2023-09-16 08:04 | PM.PNGS ---
Subjective Subjective Date of Service: 09/16/23 Interval history: Pod 1 following tracheostomy, gastrostomy placement. Patient tolerated the procedure well. Physical Exam Vital Signs: Vital Signs: Last Vital Signs Temp 99.4 F 09/16/23 03:00 Pulse 85 09/16/23 07:00 Resp 16 09/16/23 07:00 BP 111/63 09/16/23 07:00 Pulse Ox 93 09/16/23 07:00 O2 Del Method Trach Collar 09/16/23 07:00 O2 Flow Rate 10 09/16/23 07:00 FiO2 35 09/16/23 07:00 BMI result Body Mass Index 44.0 Const: General: awake Nutritional Appearance: well nourished Resp: Other: Tracheostomy in place with small amount of bloody secretions. Tube functioning well. Effort & Inspection: normal respiratory effort GI: Other: Peg tube in place, wounds clean and dry Skin: Other: Warm and dry Objective Data Active Medications Acetaminophen (Acetaminophen 325 Mg Tablet) 650 mg PO Q6H PRN PRN Reason: fever, mild pain Amlodipine Besylate (Amlodipine Besylate 10 Mg Tablet) 10 mg PO DAILY [facility]; Protocol Aspirin (Aspirin Enteric Coated 81 Mg Tablet.Dr) 81 mg PO DAILY [facility] Atorvastatin Calcium (Atorvastatin Calcium 80 Mg Tablet) 80 mg PO DAILY [facility] Bethanechol Chloride (Bethanechol Chloride 25 Mg Tablet) 50 mg PO BID [facility] Last Admin: 09/15/23 20:38 Dose: 50 mg Documented By: KWEIS Dextrose (Dextrose 50 % 25 Gm/50 Ml Syringe) 25 gm IVPUSH Q15M PRN; Protocol PRN Reason: per Hypoglycemia Standing Ord. Finasteride (Finasteride 5 Mg Tablet) 5 mg PO DAILY [facility] Gabapentin (Gabapentin 600 Mg Tablet) 600 mg PO TID [facility] Last Admin: 09/15/23 20:38 Dose: 600 mg Documented By: KWESI Glucose (Glucose Gel 15 Gm Gel..Gram.) 15 gm PO Q15M PRN; Protocol PRN Reason: per Hypoglycemia Standing Ord. Heparin Sodium (Porcine) (Heparin Sodium,Porcine 5,000 Unit/Ml Vial) 5,000 unit SUBCUT Q12H [facility] Hydrochlorothiazide (Hydrochlorothiazide 25 Mg Tablet) 25 mg PO DAILY [facility]; Protocol Insulin Human Lispro (Insulin Lispro 100 Unit/Ml 3 Ml Vial) 0 unit SUBCUT QIDACHS [facility]; Protocol Last Admin: 09/16/23 07:34 Dose: Not Given Documented By: MAURICE Non-Admin Reason: No Insulin Coverage Losartan Potassium (Losartan Potassium 50 Mg Tablet) 50 mg PO DAILY [facility]; Protocol Morphine Sulfate (Morphine Sulfate 2 Mg/Ml Cartridge) 4 mg IVPUSH Q4H PRN; Protocol PRN Reason: Pain, Severe (Pain Scale 7-10) Last Admin: 09/16/23 01:42 Dose: 4 mg Documented By: KWESI Pt Own (Edaravone [ Radicava Ors] 105 Mg /5 Ml Suspension) 105 mg PO DAILY [facility] Pt Own (Riluzole 50 (Mg Tablet)) 50 mg PO BID [facility] Last Admin: 09/15/23 20:39 Dose: 50 mg Documented By: KWESI Omeprazole (Omeprazole 20 Mg Capsule.Dr) 20 mg PO DAILY@0630 [facility] Last Admin: 09/16/23 05:33 Dose: 20 mg Documented By: KWESI Ondansetron HCl (Ondansetron Hcl 4 Mg/2 Ml Vial) 4 mg IVPUSH Q8H PRN PRN Reason: Nausea Sertraline HCl (Sertraline Hcl 100 Mg Tablet) 100 mg PO DAILY [facility] Sodium Chloride (0.9 % Sodium Chloride Flush 3 Ml Syringe) 3 ml IVFLUSH QSHIFT [facility] Last Admin: 09/16/23 07:34 Dose: 3 ml Documented By: MAURICE Tizanidine HCl (Tizanidine Hcl 4 Mg Tablet) 2 mg PO TID [facility] Last Admin: 09/15/23 20:36 Dose: 2 mg Documented By: KWESI Tramadol HCl (Tramadol Hcl 50 Mg Tablet) 50 mg PO Q4H PRN PRN Reason: Pain, Moderate(Pain Scale 4-6) Last Admin: 09/16/23 03:31 Dose: 50 mg Documented By: KWESI Labs Labs: Laboratory Results - last 24 hr 09/15/23 09/15/23 09/15/23 08:53 16:45 20:08 POC Glucose 131 H 162 H 169 H 09/16/23 07:27 POC Glucose 138 H Procedures Date of Service Date of Service: 09/16/23 Progress Note: A&P Assessment and plan (1) ALS (amyotrophic lateral sclerosis): Status: Acute (2) Status post gastrostomy: Status: Acute (3) Status post tracheostomy: Status: Acute Plan 68-year-old male with ALS, status post gastrostomy and tracheostomy placement pod 1. Patient tolerated the procedure well and remains hemodynamically stable. Patient is currently an extended recovery; will await case management evaluation to assist in discharge planning. Time Spent With Patient Time: Total time managing care of this patient today ____ minutes. Quality Stroke Does the patient have a stroke diagnosis?: No VTE Prior VTE?: No VTE Risk Level:: Surgical - moderate VTE Device Contraindication: N/A - Device Ordered VTE Drug Contraindication: N/A - Med Ordered
[2023-09-16] MEDS: Finasteride 5 MG TABLET PO (08:14)
[2023-09-16] MEDS: Losartan Potassium 50 MG TABLET PO (08:14)
[2023-09-16] MEDS: Atorvastatin Calcium 80 MG TABLET PO (08:15)
[2023-09-16] MEDS: Gabapentin 600 MG TABLET PO ×3 (08:15→21:12)
[2023-09-16] MEDS: hydroCHLOROthiazide 25 MG TABLET PO (08:15)
[2023-09-16] MEDS: amLODIPine Besylate 10 MG TABLET PO (08:15)
[2023-09-16] MEDS: Bethanechol Chloride 25 MG TABLET 50 MG PO ×2 (08:15→21:13)
[2023-09-16] MEDS: Sertraline HCL 100 MG TABLET PO (08:15)
[2023-09-16] MEDS: TiZANidine HCL 4 MG TABLET 2 MG PO ×3 (08:16→21:12)
[2023-09-16] MEDS: Aspirin Enteric Coated 81 MG TABLET.DR PO (08:20)
[2023-09-16 08:37] LABS: MANUAL DIFF FLAG NO
[2023-09-16 08:46] LABS: Basophils Percent Auto 0.2 % (0-2); Eosinophils Percent Auto 0.2 % (0-4); Hematocrit 40.2 % (42.0-52.0); Hemoglobin 13.4 g/dl (14.0-18.0); Imm Gran Abs Auto 0.07 X10*3/uL (0.00-0.03); Imm Gran Pct Auto 0.6 % (0.0-0.4); Lymphocytes Absolute Auto 1.1 X10*3/uL (1.2-4.9); Lymphocytes Percent Auto 8.9 % (20-40); Mean Corpuscular HGB Conc 33.3 g/dl (31.0-36.0); Mean Corpuscular Hemoglobin 28.6 pg (27.0-33.0); Mean Corpuscular Volume 85.9 fL (80.0-98.0); Mean Platelet Volume 10.2 fL (9.4-12.4); Monocytes Absolute Auto 1.1 X10*3/uL (0.1-1.2); Monocytes Percent Auto 8.9 % (2-11); Neutrophils Absolute Auto 9.9 x10*3/uL (2.0-8.3); Neutrophils Percent Auto 81.2 % (45-73); Platelet Count 216 X10*3/uL (160-400); Red Blood Count 4.68 X10*6/uL (4.60-5.80); Red Cell Distribution Width 14.3 % (11.0-16.0); White Blood Count 12.3 X10*3/uL (4.8-10.8)
[2023-09-16 08:57] LABS: Anion Gap 14 (12-20); Blood Urea Nitrogen 15 mg/dL (9-16); Calcium 9.4 mg/dL (8.4-10.2); Carbon Dioxide 29 mmol/L (22-29); Chloride 103 mmol/L (96-108); Creatinine Clr Calc Pharmacy 165.5; Estimated Glomerular Filt Rate > 60; Glucose Random 145 mg/dL (60-115); Magnesium 1.7 mg/dL (1.6-2.6); Potassium 3.9 mmol/L (3.3-5.1); Sodium 142 mmol/L (135-145)
[2023-09-16 11:38] LABS: Glucose, Whole Blood 146 mg/dL (60-115)
--- NOTE | 2023-09-16 12:08 | MHC.CM.PN ---
Met w/pt who is able to make needs known: he states he is tired and uncomfortable and asks that assessment questions be relayed to his spouse. Call placed to
--- NOTE | 2023-09-16 12:09 | MHC.CM.PN ---
Met w/pt who is able to make needs known: he states he is tired and uncomfortable and asks that assessment questions be relayed to his spouse. Pt is s/p peg/trach placement d/t ALS and difficulty managing secretions. Call placed to Haley who states pt had been at home without services prior to [facility] admission. He had [facility] for RN/PT/OT but was discharged d/t plateauing condition. Haley has been managing all pt's care needs with the assistance from a privately hired [employer] for bathing 2 x weekly. Haley states it is becoming increasingly hard for her to provide care to pt and is worried that she will not be able to continue - especially as pt's medical needs increase and condition worsens. He is totally dependent on her for ADL's and cannot bear weight, assist with repositioning and is incontinent x 2. He has a percussion air alternating bed at home that was privately purchased and uses an ambulance for any transportation needs. Haley is receptive to rehab referrals and is hoping pt could eventually return to home once she is comfortable with the peg/trach education. She would like [facility] for any home services pt may have. Broad referrals placed at this time - Haley is aware he may not be able to be placed locally - states she doesn't drive and would rely on her two sons for transportation. RAN on file/in chart: Haley states HCP was sent w/pt but could not be located in chart or EMR. Copy requested. CM to follow for placement.
[2023-09-16] MEDS: Heparin Sodium,Porcine 5,000 UNIT/ML VIAL 5000 UNIT SUBCUT (14:09)
[2023-09-16 16:46] LABS: Glucose, Whole Blood 145 mg/dL (60-115)
[2023-09-17] VITALS (10 sets, daily range): BP systolic 108–137; BP diastolic 63–75; PULSE 65–79; RESP 18–24; TEMP 36.2–36.8; O2SAT 92–96
[2023-09-17] MEDS: Heparin Sodium,Porcine 5,000 UNIT/ML VIAL 5000 UNIT SUBCUT ×2 (00:14→13:00)
[2023-09-17 00:16] LABS: Glucose, Whole Blood 138 mg/dL (60-115)
[2023-09-17] MEDS: Omeprazole 20 MG CAPSULE.DR PO (06:19)
[2023-09-17] MEDS: Morphine Sulfate 2 MG/ML CARTRIDGE 4 MG IVPUSH ×3 (06:26→18:12)
[2023-09-17 07:57] LABS: Glucose, Whole Blood 118 mg/dL (60-115)
[2023-09-17] MEDS: traMADoL HCL 50 MG TABLET PO (08:54)
[2023-09-17] MEDS: Finasteride 5 MG TABLET PO (08:54)
[2023-09-17] MEDS: Aspirin Enteric Coated 81 MG TABLET.DR PO (08:56)
[2023-09-17] MEDS: Gabapentin 600 MG TABLET PO ×3 (08:56→19:58)
[2023-09-17] MEDS: Sertraline HCL 100 MG TABLET PO (08:57)
[2023-09-17] MEDS: TiZANidine HCL 4 MG TABLET 2 MG PO ×3 (08:57→19:59)
[2023-09-17] MEDS: Losartan Potassium 50 MG TABLET PO (08:57)
[2023-09-17] MEDS: Bethanechol Chloride 25 MG TABLET 50 MG PO ×2 (08:57→19:58)
[2023-09-17] MEDS: amLODIPine Besylate 10 MG TABLET PO (08:57)
[2023-09-17] MEDS: 0.9 % Sodium Chloride Flush 3 ML SYRINGE IVFLUSH ×3 (08:58→19:57)
[2023-09-17] MEDS: hydroCHLOROthiazide 25 MG TABLET PO (08:58)
[2023-09-17] MEDS: Atorvastatin Calcium 80 MG TABLET PO (08:58)
[2023-09-17 11:42] LABS: Glucose, Whole Blood 123 mg/dL (60-115)
--- NOTE | 2023-09-17 13:04 | HO.POSTANES ---
Post Anesthesia Evaluation Post Anesthesia Evaluation Date of Service: 09/17/23 Vital Signs: Vital Signs Temp Pulse Resp BP Pulse Ox O2 Del Method O2 Flow Rate 09/17/23 11:26 97.3 F 71 18 113/63 94 Trach Collar 8 09/17/23 07:40 97.3 F 75 20 137/72 96 Trach Collar 8 09/17/23 03:41 97.1 F 65 20 108/68 96 Room Air Anesthesia: General Endotracheal-GETA Mental Status: Awake Pain Control: Satisfactory Nausea/Vomiting: None Hydration: Adequate Anesthesia-Related Issues: No Anes. Related Issues
[2023-09-17 16:10] LABS: Glucose, Whole Blood 128 mg/dL (60-115)
[2023-09-17 19:49] LABS: Glucose, Whole Blood 107 mg/dL (60-115)
[2023-09-18] MEDS: Heparin Sodium,Porcine 5,000 UNIT/ML VIAL 5000 UNIT SUBCUT ×2 (00:13→14:46)
[2023-09-18 03:21] VITALS: BP 138/70; PULSE 76; RESP 20; TEMP 37; O2SAT 93
[2023-09-18] MEDS: Morphine Sulfate 2 MG/ML CARTRIDGE 4 MG IVPUSH ×2 (04:31→21:02)
[2023-09-18] MEDS: Omeprazole 20 MG CAPSULE.DR PO (05:25)
[2023-09-18 07:40] VITALS: BP 122/70; PULSE 67; RESP 20; TEMP 36.5; O2SAT 94
[2023-09-18] MEDS: Gabapentin 600 MG TABLET PO ×3 (08:48→21:09)
[2023-09-18] MEDS: Atorvastatin Calcium 80 MG TABLET PO (08:48)
[2023-09-18] MEDS: amLODIPine Besylate 10 MG TABLET PO (08:48)
[2023-09-18] MEDS: hydroCHLOROthiazide 25 MG TABLET PO (08:48)
[2023-09-18] MEDS: Aspirin Enteric Coated 81 MG TABLET.DR PO (08:48)
[2023-09-18] MEDS: Sertraline HCL 100 MG TABLET PO (08:49)
[2023-09-18] MEDS: Losartan Potassium 50 MG TABLET PO (08:49)
[2023-09-18] MEDS: Bethanechol Chloride 25 MG TABLET 50 MG PO ×2 (08:49→21:09)
[2023-09-18] MEDS: Acetaminophen 325 MG TABLET 650 MG PO (08:49)
[2023-09-18] MEDS: TiZANidine HCL 4 MG TABLET 2 MG PO ×3 (08:50→21:09)
[2023-09-18 08:51] LABS: Glucose, Whole Blood 118 mg/dL (60-115)
[2023-09-18] MEDS: 0.9 % Sodium Chloride Flush 3 ML SYRINGE IVFLUSH ×2 (11:09→15:27)
[2023-09-18 11:43] VITALS: BP 119/61; PULSE 66; RESP 20; TEMP 36.3; O2SAT 94
[2023-09-18 11:58] VITALS: BMI 44.0
--- NOTE | 2023-09-18 12:01 | MHC.CLN ---
RE: CONSULT PT WITH NEW PEG TUBE PLACED CURRENTLY NPO RECOMMEND GLUCERNA AT MAX GOAL RATE 75ML/HR WITH 240ML FREE WATER FLUSHES Q 6 HRS TO PROVIDE 1800KCALS (23KCALS/KG BASED ON IBW), 75G PROTEIN (.96G/KG), 2495ML TOTAL WATER FROM FORMULA AND FLUSHES (32ML/KG BASED ON IBW) START TF AT 20ML/HR AND INCREASE BY 10ML Q 4 HRS UNTIL MAX GOAL IS ACHIEVED MONITOR TOLERANCE, RESIDUALS AND LYTES SEE ALSO FULL CLINICAL NUTRITION ASSESSMENT
[2023-09-18 12:25] LABS: Glucose, Whole Blood 116 mg/dL (60-115)
--- NOTE | 2023-09-18 13:19 | P.PNGS_ITS ---
Subjective Subjective Date of Service: 09/18/23 Interval history: Haley has been managing all pt's care needs with the assistance and has requested rehab referrals with possible plan of patient eventually returning home once she is comfortable with the peg/trach care. Patient awaiting speech consult for swallow eval with new tracheostomy. Physical Exam 2 Vital Signs: Vital Signs: Last Vital Signs Temp 97.3 F 09/18/23 11:43 Pulse 66 09/18/23 11:43 Resp 20 09/18/23 11:43 BP 119/61 09/18/23 11:43 Pulse Ox 94 09/18/23 11:43 O2 Del Method Trach Collar 09/18/23 11:43 O2 Flow Rate 8 09/18/23 11:43 FiO2 30 09/16/23 15:00 BMI result Body Mass Index 44.0 Const: General: no acute distress and alert Nutritional Appearance: obese Neck: Other: tracheostomy site clean, sutures remain in place Resp: Effort & Inspection: normal respiratory effort GI: Other: PEG tube in place, bolster snug Skin: General skin exam: no rashes or lesions noted and no jaundice Objective Data Active Medications Acetaminophen (Acetaminophen 325 Mg Tablet) 650 mg PO Q6H PRN PRN Reason: fever, mild pain Last Admin: 09/18/23 08:49 Dose: 650 mg Documented By: SARAH Amlodipine Besylate (Amlodipine Besylate 10 Mg Tablet) 10 mg PO DAILY [facility]; Protocol Last Admin: 09/18/23 08:48 Dose: 10 mg Documented By: SARAH Aspirin (Aspirin Enteric Coated 81 Mg Tablet.) 81 mg PO DAILY [facility] Last Admin: 09/18/23 08:48 Dose: 81 mg Documented By: SARAH Atorvastatin Calcium (Atorvastatin Calcium 80 Mg Tablet) 80 mg PO DAILY [facility] Last Admin: 09/18/23 08:48 Dose: 80 mg Documented By: SARAH Bethanechol Chloride (Bethanechol Chloride 25 Mg Tablet) 50 mg PO BID [facility] Last Admin: 09/18/23 08:49 Dose: 50 mg Documented By: SARAH Dextrose (Dextrose 50 % 25 Gm/50 Ml Syringe) 25 gm IVPUSH Q15M PRN; Protocol PRN Reason: per Hypoglycemia Standing Ord. Finasteride (Finasteride 5 Mg Tablet) 5 mg PO BEDTIME [facility] Gabapentin (Gabapentin 600 Mg Tablet) 600 mg PO TID [facility] Last Admin: 09/18/23 08:48 Dose: 600 mg Documented By: SARAH Glucose (Glucose Gel 15 Gm Gel..Gram.) 15 gm PO Q15M PRN; Protocol PRN Reason: per Hypoglycemia Standing Ord. Heparin Sodium (Porcine) (Heparin Sodium,Porcine 5,000 Unit/Ml Vial) 5,000 unit SUBCUT Q12H [facility] Last Admin: 09/18/23 00:13 Dose: 5,000 unit Documented By: GUILLE Hydrochlorothiazide (Hydrochlorothiazide 25 Mg Tablet) 25 mg PO DAILY [facility]; Protocol Last Admin: 09/18/23 08:48 Dose: 25 mg Documented By: SARAH Insulin Human Lispro (Insulin Lispro 100 Unit/Ml 3 Ml Vial) 0 unit SUBCUT QIDACHS [facility]; Protocol Last Admin: 09/18/23 13:05 Dose: Not Given Documented By: SARAH Non-Admin Reason: No Insulin Coverage Losartan Potassium (Losartan Potassium 50 Mg Tablet) 50 mg PO DAILY [facility]; Protocol Last Admin: 09/18/23 08:49 Dose: 50 mg Documented By: SARAH Morphine Sulfate (Morphine Sulfate 2 Mg/Ml Cartridge) 4 mg IVPUSH Q4H PRN; Protocol PRN Reason: Pain, Severe (Pain Scale 7-10) Last Admin: 09/18/23 04:31 Dose: 4 mg Documented By: GUILLE Pt Own (Edaravone [ Radicava Ors] 105 Mg /5 Ml Suspension) 105 mg PO DAILY [facility] Last Admin: 09/18/23 08:54 Dose: 105 mg Documented By: SARAH Pt Own (Riluzole 50 (Mg Tablet)) 50 mg PO BID [facility] Last Admin: 09/18/23 11:08 Dose: 50 mg Documented By: SARAH Omeprazole (Omeprazole 20 Mg Capsule.Dr) 20 mg PO DAILY@0630 [facility] Last Admin: 09/18/23 05:25 Dose: 20 mg Documented By: GUILLE Ondansetron HCl (Ondansetron Hcl 4 Mg/2 Ml Vial) 4 mg IVPUSH Q8H PRN PRN Reason: Nausea Sertraline HCl (Sertraline Hcl 100 Mg Tablet) 100 mg PO DAILY [facility] Last Admin: 09/18/23 08:49 Dose: 100 mg Documented By: SARAH Sodium Chloride (0.9 % Sodium Chloride Flush 3 Ml Syringe) 3 ml IVFLUSH QSHIFT [facility] Last Admin: 09/18/23 11:09 Dose: 3 ml Documented By: SARAH Tizanidine HCl (Tizanidine Hcl 4 Mg Tablet) 2 mg PO TID [facility] Last Admin: 09/18/23 08:50 Dose: 2 mg Documented By: SARAH Tramadol HCl (Tramadol Hcl 50 Mg Tablet) 50 mg PO Q4H PRN PRN Reason: Pain, Moderate(Pain Scale 4-6) Last Admin: 09/17/23 08:54 Dose: 50 mg Documented By: MARK Labs 09/16/23 08:32 09/16/23 08:32 Labs: Laboratory Results - last 24 hr 09/17/23 09/17/23 09/18/23 15:25 19:43 07:43 POC Glucose 128 H 107 118 H 09/18/23 11:46 POC Glucose 116 H Procedures Date of Service Date of Service: 09/18/23 Progress Note: A&P Assessment and plan (1) Status post gastrostomy: Status: Acute (2) Status post tracheostomy: Status: Acute Plan Doing well from surgical standpoint. Speech consult for swallow eval with new tracheostomy. Wound care consult for new buttock wound. Await placement. Time Spent With Patient Time: Total time managing care of this patient today ____ minutes. Quality Stroke Does the patient have a stroke diagnosis?: No VTE Prior VTE?: No VTE Risk Level:: Surgical - moderate VTE Device Contraindication: N/A - Device Ordered VTE Drug Contraindication: N/A - Med Ordered
--- NOTE | 2023-09-18 14:41 | HO.PM.IMCN ---
History of Present Illness Data of Consult Service Date: 09/18/23 Primary Care Provider: Salvador Dimas, [facility]- HPI 68-year-old man with a history of ALS, bed-bound admitted by thoracic surgery and is status post tracheostomy and PEG tube for history of dysphagia. Patient so far has had an unremarkable surgical recovery. He has no acute medical complaints at this time. His labs and vital signs are within acceptable limits. Review of Systems Review of Systems: Denies any recent fever chills or decrease in appetite respiratory denied sob, mild cough cardiovascular Denied chest pain gastrointestinal denies any dysphagia abdominal pain nausea vomiting or diarrhea genitourinary denies any dysuria frequency or hematuria musculoskeletal denies any joint pain or swelling neuropsych denies any weakness or seizures all other systems reviewed are negative [facility] Medical History (Updated 09/18/23 @ 14:48 by Evelyn Franklin NP) PEG (percutaneous endoscopic gastrostomy) adjustment/replacement/removal Tracheostomy in place BPH (benign prostatic hyperplasia) Dysphagia Arthritis ALS (amyotrophic lateral sclerosis) Chronic respiratory failure CKD (chronic kidney disease) Trochanteric bursitis, left hip Romero esophagus Dyslipidemia Type 2 diabetes mellitus Plaque psoriasis Stroke ANTONIA (obstructive sleep apnea) HTN (hypertension) Asthma Family History Father Diabetes Mother Diabetes Cancer Brother Bladder cancer Surgical History (Updated 09/15/23 @ 16:35 by Archie Britton MD) History of esophagogastroduodenoscopy (EGD) H/O colonoscopy History of left knee surgery Hx of tonsillectomy Hx of appendectomy History of left knee replacement Social History Household Members: Spouse Housing: House Are you a primary resident care assistant to a significant other at home: No Do you presently have visiting nurse or other home services: No Alcohol intake: never Comment: counts correct Patient Tobacco Use Status: Never used Tobacco e-Cigarette/Vaping Use: Never Used Second Hand Smoke Exposure: No Use of substances other than those prescribed or required for medical reasons: No Currently Displaying Signs/Symptoms of Drug Intoxication Withdrawal: No Have you been hit, kicked, punched, or otherwise hurt by someone within the past year? If so, by whom?: No Do you feel safe in your current relationship?: Yes Is there a partner from a previous relationship who is making you feel unsafe now?: No Are you made to feel afraid or neglected: No Advance Directives: No Advance Directives Information Provided: Yes Advance Directives on File: Yes Advance Directives Date on File: 12/23/20 Do you have thoughts of harming others: None Recently lost weight without trying: No Eating poorly because of decreased appetite: No Nutrition Risks: No Nutritional Risk Poor oral hygiene: No Current occupational status: retired Current occupation: right handed Cognitive needs: Yes (walker) Hearing needs: No Vision needs: Yes (glasses) Meds Allergies Allergy/AdvReac Type Severity Reaction Status Date / Time methotrexate Allergy Intermediate shortness Verified 09/11/23 13:03 of breath cats and dogs Allergy Intermediate Itching Uncoded 09/11/23 13:03 Active Medications: Current Medications Acetaminophen (Acetaminophen 325 Mg Tablet) 650 mg PO Q6H PRN PRN Reason: fever, mild pain Last Admin: 09/18/23 08:49 Dose: 650 mg Amlodipine Besylate (Amlodipine Besylate 10 Mg Tablet) 10 mg PO DAILY [facility]; Protocol Last Admin: 09/18/23 08:48 Dose: 10 mg Aspirin (Aspirin Enteric Coated 81 Mg Tablet.Dr) 81 mg PO DAILY [facility] Last Admin: 09/18/23 08:48 Dose: 81 mg Atorvastatin Calcium (Atorvastatin Calcium 80 Mg Tablet) 80 mg PO DAILY [facility] Last Admin: 09/18/23 08:48 Dose: 80 mg Bethanechol Chloride (Bethanechol Chloride 25 Mg Tablet) 50 mg PO BID [facility] Last Admin: 09/18/23 08:49 Dose: 50 mg Dextrose (Dextrose 50 % 25 Gm/50 Ml Syringe) 25 gm IVPUSH Q15M PRN; Protocol PRN Reason: per Hypoglycemia Standing Ord. Finasteride (Finasteride 5 Mg Tablet) 5 mg PO BEDTIME [facility] Gabapentin (Gabapentin 600 Mg Tablet) 600 mg PO TID [facility] Last Admin: 09/18/23 08:48 Dose: 600 mg Glucose (Glucose Gel 15 Gm Gel..Gram.) 15 gm PO Q15M PRN; Protocol PRN Reason: per Hypoglycemia Standing Ord. Heparin Sodium (Porcine) (Heparin Sodium,Porcine 5,000 Unit/Ml Vial) 5,000 unit SUBCUT Q12H [facility] Last Admin: 09/18/23 00:13 Dose: 5,000 unit Hydrochlorothiazide (Hydrochlorothiazide 25 Mg Tablet) 25 mg PO DAILY [facility]; Protocol Last Admin: 09/18/23 08:48 Dose: 25 mg Insulin Human Lispro (Insulin Lispro 100 Unit/Ml 3 Ml Vial) 0 unit SUBCUT QIDACHS [facility]; Protocol Last Admin: 09/18/23 13:05 Dose: Not Given Losartan Potassium (Losartan Potassium 50 Mg Tablet) 50 mg PO DAILY [facility]; Protocol Last Admin: 09/18/23 08:49 Dose: 50 mg Morphine Sulfate (Morphine Sulfate 2 Mg/Ml Cartridge) 4 mg IVPUSH Q4H PRN; Protocol PRN Reason: Pain, Severe (Pain Scale 7-10) Last Admin: 09/18/23 04:31 Dose: 4 mg Pt Own (Edaravone [ Radicava Ors] 105 Mg /5 Ml Suspension) 105 mg PO DAILY [facility] Last Admin: 09/18/23 08:54 Dose: 105 mg Pt Own (Riluzole 50 (Mg Tablet)) 50 mg PO BID [facility] Last Admin: 09/18/23 11:08 Dose: 50 mg Omeprazole (Omeprazole 20 Mg Capsule.Dr) 20 mg PO DAILY@0630 [facility] Last Admin: 09/18/23 05:25 Dose: 20 mg Ondansetron HCl (Ondansetron Hcl 4 Mg/2 Ml Vial) 4 mg IVPUSH Q8H PRN PRN Reason: Nausea Sertraline HCl (Sertraline Hcl 100 Mg Tablet) 100 mg PO DAILY [facility] Last Admin: 09/18/23 08:49 Dose: 100 mg Sodium Chloride (0.9 % Sodium Chloride Flush 3 Ml Syringe) 3 ml IVFLUSH QSHIFT [facility] Last Admin: 09/18/23 11:09 Dose: 3 ml Tizanidine HCl (Tizanidine Hcl 4 Mg Tablet) 2 mg PO TID [facility] Last Admin: 09/18/23 08:50 Dose: 2 mg Tramadol HCl (Tramadol Hcl 50 Mg Tablet) 50 mg PO Q4H PRN PRN Reason: Pain, Moderate(Pain Scale 4-6) Last Admin: 09/17/23 08:54 Dose: 50 mg Home Medications Medication Instructions Recorded Confirmed Last Taken Type Bifidobacterium infantis 4 mg 4 mg PO DAILY 12/23/20 09/11/23 Unknown History capsule (Align) ascorbate calcium (vitamin C) 500 1,000 mg PO DAILY 12/23/20 09/11/23 Unknown History mg tablet aspirin 81 mg tablet,delayed 81 mg PO DAILY 12/23/20 09/11/23 09/14/23 History release coenzyme Q10 100 mg capsule (Co 100 mg PO DAILY 12/23/20 09/11/23 Unknown History Q-10) fexofenadine 180 mg tablet 180 mg PO Q24H 12/23/20 09/11/23 Unknown History (Lesli Allergy) ximofgswhnef-rzswecow-uclgiz tablet 1 tab PO DAILY 12/23/20 09/11/23 Unknown History edaravone 105 mg/5 mL oral 105 mg PO DAILY 08/30/22 09/11/23 Unknown History suspension (Radicava ORS) riluzole 50 mg tablet 50 mg PO BID 08/30/22 09/11/23 09/15/23 History gabapentin 600 mg tablet 600 mg PO TID 01/24/23 09/11/23 Unknown History CPAP (CPAP Machine/Device) 03/21/23 06/30/23 Unknown History sodium phenylbutyrate 3 1 packet PO BID 06/27/23 09/11/23 Unknown History gram-taurursodiol 1 gram oral powder packet (Relyvrio) tizanidine 2 mg tablet 2 mg PO TID 06/27/23 09/11/23 Unknown History Physical Exam Vital Signs and Narrative: Vital Signs: Last Vital Signs Temp 97.3 F 09/18/23 11:43 Pulse 66 09/18/23 11:43 Resp 20 09/18/23 11:43 BP 119/61 09/18/23 11:43 Pulse Ox 94 09/18/23 11:43 O2 Del Method Trach Collar 09/18/23 11:43 O2 Flow Rate 8 09/18/23 11:43 FiO2 30 09/16/23 15:00 BMI result Body Mass Index 44.0 Appearing in no acute distress head is normocephalic atraumatic eyes pupils are PERRLA sclera is anicteric mouth throat mucous membranes are intact and moist neck is supple no lymphadenopathy, no JVD noted, trach lung sounds are clear to auscultation heart regular rate rhythm, clear S1, S2 positive bowel sounds, abdomen is soft, nontender, PEG neuro patient is alert x3, no focal deficits Results Labs 09/16/23 08:32 09/16/23 08:32 Labs: Laboratory Results - last 24 hr 09/17/23 09/17/23 09/18/23 15:25 19:43 07:43 POC Glucose 128 H 107 118 H 09/18/23 11:46 POC Glucose 116 H Assessment and Plan (1) Status post gastrostomy: Status: Acute (2) Status post tracheostomy: Status: Acute Plan 68-year-old man admitted by thoracic surgery and is status post tracheostomy and PEG tube placement with history of ALS and dysphagia Tracheostomy for respiratory insufficiency/inability to clear secretions Management as per thoracic surgery team Status post placement 09/15/23 Management of secretions as per respiratory therapy Speech consult pending Trach collar 8 L PEG tube placement Status post placement 09/15/23 History of dysphagia secondary to ALS General surgery to decide when tube available for use Diabetes mellitus type 2 Sliding scale Hypertension Stable blood pressure Can continue Norvasc, hydrochlorothiazide, losartan Morbid obesity. BMI 44.0 Discussed importance of weight management as this may be contributing to worsening of other comorbidities ANTONIA on cpap GERD Continue PPI Mental health Continue home medications BPH Continue finasteride ALS Bedbound On Neurontin, Zanaflex DISPO plan for acute rehab, likely [facility] Full code DVT prophylaxis with heparin Attending Dr. Mullins Medical consultation complete. Will sign off
[2023-09-18 15:39] VITALS: BP 137/69; PULSE 72; RESP 20; TEMP 36.6; O2SAT 94
--- NOTE | 2023-09-18 15:56 | MHC.CM.PN ---
[facility] willing to accept pt tomorrow. This CM met with pt and his at bedside to discuss D/C plan. Pt and family accept bed at [facility] and will plan to have him bring the Edaravone as [facility] does not have in stock. Transport via BLS/[employer]. HCP completed with pt, now on file.
--- NOTE | 2023-09-18 16:28 | HO.WOUND ---
Wound Consult: Initial 68yr old?Male admitted [place] [facility] [place] 09[place]16[place]23 - See progress notes and H&P for detailed history.? Patient admitted for elective PEG and Trach placement - see chart review for details. Wound consult placed for Buttock wound.? Arrival to bedside patient and Patient agreeable to assessment and photo documentation.? The patients reports significant concern for pressure injury development. She was present while I assessed the wounds and educated on wound bed observations. Chart review did reveal patient has been refusing turns and repositions - this was discussed openly with patient and . We talked about the things he can do to prevent further injury and wound development and we discussed the things we the car providers can do. Currently in place the patient is on a Low Air Loss Mattress - a Bartatric Pulsate mattress was ordered from [facility] and should be here this evening, a barrier cream was applied and a preventative foam dressing was applied to the sacrum. Chart review revealed the patient was refusing turns and repositions - we discussed the importance of this and the patient reported he was uncomfortable at times and was not allowing repositions - we discussed notifying direct care team of uncomfortable positions and self advocay to find the right position. Per my discussion with the direct care nurse the patient refused repositioning early in the day since he lays flat during the day and turns at night direct care nurarnaud at the time provided education on the importance of repositioning every 2 hours. Right buttock Etiology: Stage 1 pressure injury Measurements: see charting for detailed measurements Wound Bed: intact pink nonblanchable tissue Drainage / Odor: None Edges: ? irregular Mandy wound: ? pink blanchable tissue - No Induration, Fluctuance or Warmth noted Pain: pt reports pain and tenderness when assessed Goals of Treatment: ? Off Load Pressure and protect from friction and moisture Left buttock / Gluteal Cleft Etiology: Friction Injury Measurements: see charting for detailed measurements Wound Bed: intact serous filled cluster of blisters -blanchable redness Drainage / Odor: None Edges: ? irregular Mandy wound: ? pink blanchable tissue - No Induration, Fluctuance or Warmth noted Pain: pt denies pain and or tenderness Goals of Treatment: ? Off Load Pressure and protect from friction and moisture with barrier cream Sacral foam applied for prevention - turned and repositioned - awaiting [facility] Pulsate bed arrival. Recommendations: 1. Turn and Reposition every 2 hours and as needed for patient comfort.? Use pillows or wedges to support off loading positions. 2. Off Load all bony prominences with use of pillows and heel boots if needed.? Apply Preventative foams where needed. ? 3. Monitor for incontinence and moisture control, use barrier creams when needed for prevention and treatment. 4. Provide adequate and supplemental nutrition.? 5. Order or Continue low air loss mattress. 6. When applicable maintain blood glucose levels per Providers order. 7. Bilateral Buttock - Off Load Pressure - Cleanse with PH balance spray or wipes, pat dry. ?Apply thin layer of barrier cream to wound bed apply twice a day. Reapply thin layer PRN after each episode of incontinence. Re-consult wound care Nurse for wound deterioration or wound changes.
[2023-09-18 16:29] LABS: Glucose, Whole Blood 122 mg/dL (60-115)
--- NOTE | 2023-09-18 17:49 | MHC.SL.SWA ---
Speech Pathologist Impression: Risk of aspiration, oropharyngeal dysphagia Risk of Aspiration Due to: Medically Fragile Neurological Condition Tracheostomy Dysphasia Diet Status: Ice chips/water by teaspoon with SPEECH INSTRUCTOR wash plant operator ONLY Liquid Consistency and Strategies for Safe Swallow: Liquid Intake Recommendation: Thin Liquid Intake Strategies: Small Sips Liquids by Teaspoon Only Solid Food Consistency: Dietary Recommendations: NPO Additional Modifications to Solid Foods: Patient seen for bedside dysphagia evaluation this afternoon. Patient initially tolerated ice chips/water by teaspoon, demonstrating good oral containment, timely oral transit, timely swallow, incomplete laryngeal elevation. As feeding progressed, after patient took bites of applesauce and sips of water by cup, patient appeared to fatigue and began coughing consistently upon swallowing. 02 sat did remain stable with feeding. Patient and his hope for at least supplemental PO as patient's endurance improves. Ad interim, recommend therapeutic ice chips/water BY TEASPOON for comfort WITH RN or SPEECH INSTRUCTOR ONLY. Patient to be decuffed and Passy Valve placed for presentation of ice chips/water. Per RN, patient has been tolerating pills whole with sips of water by teaspoon. DISCONTINUE feeding if patient evidences any overt s/s of aspiration. Oral care to be provided frequently. Plan to re-assess tomorrow morning. Oral Medication Intake: With Liquid Please contact the pharmacy regarding appropriate crushable or liquid drug formulations that are available whenever modified delivery is recommended. Compensatory Strategies and Precautions to be Taken for Safe Swallow: Sitting Upright (90 deg) Liquids from Spoon Rate of Ingestion Change Supervision While Eating and Drinking for Safe Swallow: PO with SPEECH INSTRUCTOR Swallowing Recommended Treatments: Compens. Strategy Educat. Recommendation for Speech: Inpatient Speech Therapy Modified Barium Swallow Study - Inpatient Modified Barium Swallow Study - Outpatient Comment: Patient would benefit from having an instrumental exam (MBSS) to evaluate the extent of his dysphagia post-tracheostomy and to provide feeding recommendations. Frequency/Duration: Date Range for Service Req: Timeline to reassess: Natural Gas Engineer Clinican/Clinical Fellow: No Supervisory Statement: I have reviewed and agree with the student/clinical fellow's documentation: N/A Speech Language Pathologist: Susan Goss M.A., CCC-SPEECH INSTRUCTOR
--- NOTE | 2023-09-18 18:58 | PC.NURSE ---
Blister noted to left inner buttocks with redness to bilat buttocks, Provider notified wound consult placed and seen by wound RN in afternoon treatment in place. Initially in am pt refused to turn but educated on needs d/t skin breakdown. Off load side to side with pillows during shift. Heels elevated off bed. Speech consult obtained for swallow unable to tolerated foods at this time. Tube feeding started per order late shift. Patient and family updated frequently throughout shift. Trach care provided and suction as needed humidification in place with trach mask. Pasey [place] valve at bedside pt having difficulty tolerating long periods with in on. Will continue to monitor and report changes
[2023-09-18 19:30] VITALS: BP 134/67; PULSE 77; RESP 16; TEMP 36.3; O2SAT 96
[2023-09-18 20:15] LABS: Glucose, Whole Blood 126 mg/dL (60-115)
[2023-09-18 21:03] VITALS: BP 116/56; PULSE 72; RESP 18; O2SAT 95
[2023-09-18] MEDS: Finasteride 5 MG TABLET PO (21:09)
[2023-09-19] VITALS (8 sets, daily range): BP systolic 104–146; BP diastolic 54–82; PULSE 69–85; RESP 18–20; TEMP 36.1–36.8; O2SAT 92–95
--- NOTE | 2023-09-19 00:02 | PC.NURSE ---
Air loss bed that come from [facility] has air leak , company was called at 22:15 , didn't receive ATE yet. Pt was moved back to the hospital bed
[2023-09-19] MEDS: 0.9 % Sodium Chloride Flush 3 ML SYRINGE IVFLUSH ×4 (00:03→21:50)
[2023-09-19] MEDS: Heparin Sodium,Porcine 5,000 UNIT/ML VIAL 5000 UNIT SUBCUT ×3 (00:05→22:17)
[2023-09-19 07:59] LABS: Glucose, Whole Blood 131 mg/dL (60-115)
[2023-09-19] MEDS: amLODIPine Besylate 10 MG TABLET PO (08:28)
[2023-09-19] MEDS: Bethanechol Chloride 25 MG TABLET 50 MG PO ×2 (08:29→21:28)
[2023-09-19] MEDS: Aspirin Enteric Coated 81 MG TABLET.DR PO (08:29)
[2023-09-19] MEDS: TiZANidine HCL 4 MG TABLET 2 MG PO ×3 (08:29→21:29)
[2023-09-19] MEDS: Losartan Potassium 50 MG TABLET PO (08:29)
[2023-09-19] MEDS: Sertraline HCL 100 MG TABLET PO (08:29)
[2023-09-19] MEDS: Gabapentin 600 MG TABLET PO ×3 (08:29→21:28)
[2023-09-19] MEDS: Atorvastatin Calcium 80 MG TABLET PO (08:29)
[2023-09-19] MEDS: hydroCHLOROthiazide 25 MG TABLET PO (08:35)
[2023-09-19] MEDS: Morphine Sulfate 2 MG/ML CARTRIDGE 4 MG IVPUSH (08:43)
--- NOTE | 2023-09-19 08:54 | PM.PNGS ---
Subjective Subjective Date of Service: 09/19/23 Interval history: C/o secretions this morning but trach was just suctioned. Denies nausea, abdominal pain. Still wants to go to [facility] today. Physical Exam Vital Signs: Vital Signs: Last Vital Signs Temp 97.8 F 09/19/23 07:37 Pulse 73 09/19/23 07:37 Resp 20 09/19/23 07:37 BP 146/82 H 09/19/23 07:37 Pulse Ox 92 09/19/23 07:37 O2 Del Method Trach Collar 09/19/23 07:37 O2 Flow Rate 8 09/19/23 07:37 FiO2 30 09/16/23 15:00 BMI result Body Mass Index 44.0 Const: General: comfortable, no acute distress and alert Orientation/consciousness: patient oriented x3 Neck: Other: trach in place Resp: Effort & Inspection: normal respiratory effort GI: Other: peg tube in place, tube feeds running Skin: General skin exam: no rashes or lesions noted Neuro: General: patient oriented x3 and moves all extremities Objective Data Active Medications Acetaminophen (Acetaminophen 325 Mg Tablet) 650 mg PO Q6H PRN PRN Reason: fever, mild pain Last Admin: 09/18/23 08:49 Dose: 650 mg Documented By: SARAH Amlodipine Besylate (Amlodipine Besylate 10 Mg Tablet) 10 mg PO DAILY [facility]; Protocol Last Admin: 09/19/23 08:28 Dose: 10 mg Documented By: WILFRID Aspirin (Aspirin Enteric Coated 81 Mg Tablet.) 81 mg PO DAILY [facility] Last Admin: 09/19/23 08:29 Dose: 81 mg Documented By: WILFRID Atorvastatin Calcium (Atorvastatin Calcium 80 Mg Tablet) 80 mg PO DAILY [facility] Last Admin: 09/19/23 08:29 Dose: 80 mg Documented By: WILFRID Bethanechol Chloride (Bethanechol Chloride 25 Mg Tablet) 50 mg PO BID [facility] Last Admin: 09/19/23 08:29 Dose: 50 mg Documented By: WILFRID Dextrose (Dextrose 50 % 25 Gm/50 Ml Syringe) 25 gm IVPUSH Q15M PRN; Protocol PRN Reason: per Hypoglycemia Standing Ord. Finasteride (Finasteride 5 Mg Tablet) 5 mg PO BEDTIME [facility] Last Admin: 09/18/23 21:09 Dose: 5 mg Documented By: OUMOU Gabapentin (Gabapentin 600 Mg Tablet) 600 mg PO TID [facility] Last Admin: 09/19/23 08:29 Dose: 600 mg Documented By: WILFRID Glucose (Glucose Gel 15 Gm Gel..Gram.) 15 gm PO Q15M PRN; Protocol PRN Reason: per Hypoglycemia Standing Ord. Heparin Sodium (Porcine) (Heparin Sodium,Porcine 5,000 Unit/Ml Vial) 5,000 unit SUBCUT Q12H [facility] Last Admin: 09/19/23 00:05 Dose: 5,000 unit Documented By: WENDI Hydrochlorothiazide (Hydrochlorothiazide 25 Mg Tablet) 25 mg PO DAILY [facility]; Protocol Last Admin: 09/19/23 08:35 Dose: 25 mg Documented By: WILFRID Insulin Human Lispro (Insulin Lispro 100 Unit/Ml 3 Ml Vial) 0 unit SUBCUT QIDACHS [facility]; Protocol Last Admin: 09/19/23 08:13 Dose: Not Given Documented By: WILFRID Non-Admin Reason: No Insulin Coverage Losartan Potassium (Losartan Potassium 50 Mg Tablet) 50 mg PO DAILY [facility]; Protocol Last Admin: 09/19/23 08:29 Dose: 50 mg Documented By: WILFRID Morphine Sulfate (Morphine Sulfate 2 Mg/Ml Cartridge) 4 mg IVPUSH Q4H PRN; Protocol PRN Reason: Pain, Severe (Pain Scale 7-10) Last Admin: 09/19/23 08:43 Dose: 4 mg Documented By: WILFRID Pt Own (Edaravone [ Radicava Ors] 105 Mg /5 Ml Suspension) 105 mg PO DAILY [facility] Last Admin: 09/19/23 08:30 Dose: 105 mg Documented By: WILFRID Pt Own (Riluzole 50 (Mg Tablet)) 50 mg PO BID [facility] Last Admin: 09/19/23 08:29 Dose: 50 mg Documented By: WILFRID Omeprazole (Omeprazole 20 Mg Capsule.Dr) 20 mg PO DAILY@0630 [facility] Last Admin: 09/19/23 06:39 Dose: Not Given Documented By: WENDI Non-Admin Reason: Patient Asleep Ondansetron HCl (Ondansetron Hcl 4 Mg/2 Ml Vial) 4 mg IVPUSH Q8H PRN PRN Reason: Nausea Sertraline HCl (Sertraline Hcl 100 Mg Tablet) 100 mg PO DAILY [facility] Last Admin: 09/19/23 08:29 Dose: 100 mg Documented By: WILFRID Sodium Chloride (0.9 % Sodium Chloride Flush 3 Ml Syringe) 3 ml IVFLUSH QSHIFT [facility] Last Admin: 09/19/23 08:30 Dose: 3 ml Documented By: WILFRID Tizanidine HCl (Tizanidine Hcl 4 Mg Tablet) 2 mg PO TID [facility] Last Admin: 09/19/23 08:29 Dose: 2 mg Documented By: WILFRID Tramadol HCl (Tramadol Hcl 50 Mg Tablet) 50 mg PO Q4H PRN PRN Reason: Pain, Moderate(Pain Scale 4-6) Last Admin: 09/17/23 08:54 Dose: 50 mg Documented By: MARK Labs 09/16/23 08:32 09/16/23 08:32 Labs: Laboratory Results - last 24 hr 09/18/23 09/18/23 09/18/23 11:46 15:41 20:06 POC Glucose 116 H 122 H 126 H 09/19/23 07:40 POC Glucose 131 H Procedures Date of Service Date of Service: 09/19/23 Progress Note: A&P Assessment and plan (1) Status post gastrostomy: Status: Acute (2) Status post tracheostomy: Status: Acute Plan Tube feeds started yesterday as he failed his swallow eval. Can continue tube feeds for now. Speech reevaluating this morning. Overall doing well post operatively and remains stable. Plan for transfer to [facility] today. Patient comfortable with plan. New left buttock/gluteal cleft injury from friction- seen by u.s. revenue officer. See recommendations below. 1. Turn and Reposition every 2 hours and as needed for patient comfort. Use pillows or wedges to support off loading positions. 2. Off Load all bony prominences with use of pillows and heel boots if needed. Apply Preventative foams where needed. 3. Monitor for incontinence and moisture control, use barrier creams when needed for prevention and treatment. 4. Provide adequate and supplemental nutrition. 5. Order or Continue low air loss mattress. 6. When applicable maintain blood glucose levels per Providers order. 7. Bilateral Buttock - Off Load Pressure - Cleanse with PH balance spray or wipes, pat dry. Apply thin layer of barrier cream to wound bed apply twice a day. Reapply thin layer PRN after each episode of incontinence. Time Spent With Patient Time: Total time managing care of this patient today ____ minutes. Quality Stroke Does the patient have a stroke diagnosis?: No VTE Prior VTE?: No VTE Risk Level:: Surgical - moderate VTE Device Contraindication: N/A - Device Ordered VTE Drug Contraindication: N/A - Med Ordered
--- NOTE | 2023-09-19 09:25 | P.TS_ITS ---
Transfer Discharge Sum: Prov Provider Date of admission: 09/16/23 08:13 Primary care physician: DAVE Ray Attending physician on admission: Jerry Ring Consults: 09/15/23 12:56 Consult to Case Management Routine Comment: new tracheostomy/PEG tube, home care 09/18/23 12:33 Consult to Hospitalist Routine Comment: Consulting Provider: Hospitalist Reason For Exam: ALS, new trach 09/18/23 12:35 Consult to Wound Care Routine Reason for consultation: new wound Attending physician on discharge: Jerry Ring DS: Diagnosis Discharge Diagnosis (1) Status post gastrostomy: Status: Acute (2) Status post tracheostomy: Status: Acute Transfer Discharge Sum: Med Medications Active and Home Medications: Home Medications Bifidobacterium infantis 4 mg capsule (Align) 4 mg PO DAILY 12/23/20 [History Confirmed 09/11/23] ascorbate calcium (vitamin C) 500 mg tablet 1,000 mg PO DAILY 12/23/20 [History Confirmed 09/11/23] aspirin 81 mg tablet,delayed release 81 mg PO DAILY 12/23/20 [History Confirmed 09/11/23] blood sugar diagnostic (makerSQRuch Ultra Blue Test Strip) #100 ea 12/23/20 [Rx Confirmed 06/30/23] coenzyme Q10 100 mg capsule (Co Q-10) 100 mg PO DAILY 12/23/20 [History Confirmed 09/11/23] fexofenadine 180 mg tablet (Lesli Allergy) 180 mg PO Q24H 12/23/20 [History Confirmed 09/11/23] lancets ([employer] GroupTouch UltraSoft Lancets) #100 ea 12/23/20 [Rx Confirmed 06/30/23] xhsxvymgmlbl-xerabsar-qhbqgi tablet 1 tab PO DAILY 12/23/20 [History Confirmed 09/11/23] blood-glucose meter (makerSQRuch Ultra2 Meter) #1 ea 12/25/20 [Rx Confirmed 06/30/23] atorvastatin 80 mg tablet 80 mg PO DAILY 90 days #90 tabs 11/26/21 [Rx Confirmed 09/11/23] edaravone 105 mg/5 mL oral suspension (Radicava ORS) 105 mg PO DAILY 08/30/22 [History Confirmed 09/11/23] riluzole 50 mg tablet 50 mg PO BID 08/30/22 [History Confirmed 09/11/23] metformin 1,000 mg tablet 500 mg (1/2 x 1,000 mg) PO BID #180 tabs 12/08/22 [Rx Confirmed 09/11/23] Right Ankle Foot Orthosis #1 ea 12/21/22 [Rx Confirmed 06/30/23] gabapentin 600 mg tablet 600 mg PO TID 01/24/23 [History Confirmed 09/11/23] sertraline 100 mg tablet 100 mg PO DAILY #90 tabs 02/16/23 [Rx Confirmed 09/11/23] losartan 50 mg tablet 50 mg PO DAILY #90 tabs 02/24/23 [Rx Confirmed 09/11/23] CPAP (CPAP Machine/Device) 03/21/23 [History Confirmed 06/30/23] tramadol 50 mg tablet 50 mg PO BID PRN pain 10 days #20 tabs 03/21/23 [Rx Confirmed 09/11/23] finasteride 5 mg tablet 5 mg PO DAILY 90 days #90 tabs 04/03/23 [Rx Confirmed 09/11/23] right ankle night resting splint #1 ea 04/14/23 [Rx Confirmed 06/30/23] insulin syringe-needle U-100 0.3 mL 31 gauge x 5/16 (BD Insulin Syringe Ultra- Fine) #100 ea 04/27/23 [Rx Confirmed 06/30/23] hydrochlorothiazide 25 mg tablet 25 mg PO DAILY #90 tabs 06/07/23 [Rx Confirmed 09/11/23] sodium phenylbutyrate 3 gram-taurursodiol 1 gram oral powder packet (Relyvrio) 1 packet PO BID 06/27/23 [History Confirmed 09/11/23] tizanidine 2 mg tablet 2 mg PO TID 06/27/23 [History Confirmed 09/11/23] bethanechol chloride 50 mg tablet 50 mg PO BID 90 days #90 tabs 06/30/23 [Rx Confirmed 09/11/23] insulin glargine 100 unit/mL subcutaneous solution (Lantus U-100 Insulin) 21 unit (0.21 mL) subcut QPM 90 days #20 mL 07/07/23 [Rx Confirmed 09/11/23] pantoprazole 40 mg tablet,delayed release 40 mg PO DAILY #90 tabs 07/23/23 [Rx Confirmed 09/11/23] amlodipine 10 mg tablet 10 mg PO DAILY #90 caps 08/05/23 [Rx Confirmed 09/11/23] hydrocodone 5 mg-acetaminophen 325 mg tablet 1 tab PO Q4-6H PRN pain #30 tabs [Rx] Active Medications Acetaminophen (Acetaminophen 325 Mg Tablet) 650 mg PO Q6H PRN PRN Reason: fever, mild pain Last Admin: 09/18/23 08:49 Dose: 650 mg Amlodipine Besylate (Amlodipine Besylate 10 Mg Tablet) 10 mg PO DAILY [facility]; Protocol Last Admin: 09/19/23 08:28 Dose: 10 mg Aspirin (Aspirin Enteric Coated 81 Mg Tablet.Dr) 81 mg PO DAILY [facility] Last Admin: 09/19/23 08:29 Dose: 81 mg Atorvastatin Calcium (Atorvastatin Calcium 80 Mg Tablet) 80 mg PO DAILY [facility] Last Admin: 09/19/23 08:29 Dose: 80 mg Bethanechol Chloride (Bethanechol Chloride 25 Mg Tablet) 50 mg PO BID [facility] Last Admin: 09/19/23 08:29 Dose: 50 mg Dextrose (Dextrose 50 % 25 Gm/50 Ml Syringe) 25 gm IVPUSH Q15M PRN; Protocol PRN Reason: per Hypoglycemia Standing Ord. Finasteride (Finasteride 5 Mg Tablet) 5 mg PO BEDTIME [facility] Last Admin: 09/18/23 21:09 Dose: 5 mg Gabapentin (Gabapentin 600 Mg Tablet) 600 mg PO TID [facility] Last Admin: 09/19/23 08:29 Dose: 600 mg Glucose (Glucose Gel 15 Gm Gel..Gram.) 15 gm PO Q15M PRN; Protocol PRN Reason: per Hypoglycemia Standing Ord. Heparin Sodium (Porcine) (Heparin Sodium,Porcine 5,000 Unit/Ml Vial) 5,000 unit SUBCUT Q12H [facility] Last Admin: 09/19/23 00:05 Dose: 5,000 unit Hydrochlorothiazide (Hydrochlorothiazide 25 Mg Tablet) 25 mg PO DAILY [facility]; Protocol Last Admin: 09/19/23 08:35 Dose: 25 mg Insulin Human Lispro (Insulin Lispro 100 Unit/Ml 3 Ml Vial) 0 unit SUBCUT QIDACHS [facility]; Protocol Last Admin: 09/19/23 08:13 Dose: Not Given Losartan Potassium (Losartan Potassium 50 Mg Tablet) 50 mg PO DAILY [facility]; Protocol Last Admin: 03/05/24 08:29 Dose: 50 mg Morphine Sulfate (Morphine Sulfate 2 Mg/Ml Cartridge) 4 mg IVPUSH Q4H PRN; Protocol PRN Reason: Pain, Severe (Pain Scale 7-10) Last Admin: 09/19/23 08:43 Dose: 4 mg Pt Own (Edaravone [ Radicava Ors] 105 Mg /5 Ml Suspension) 105 mg PO DAILY [facility] Last Admin: 09/19/23 08:30 Dose: 105 mg Pt Own (Riluzole 50 (Mg Tablet)) 50 mg PO BID [facility] Last Admin: 09/19/23 09:00 Dose: Not Given Omeprazole (Omeprazole 20 Mg Capsule.Dr) 20 mg PO DAILY@0630 [facility] Last Admin: 09/19/23 06:39 Dose: Not Given Ondansetron HCl (Ondansetron Hcl 4 Mg/2 Ml Vial) 4 mg IVPUSH Q8H PRN PRN Reason: Nausea Sertraline HCl (Sertraline Hcl 100 Mg Tablet) 100 mg PO DAILY [facility] Last Admin: 09/19/23 08:29 Dose: 100 mg Sodium Chloride (0.9 % Sodium Chloride Flush 3 Ml Syringe) 3 ml IVFLUSH QSHIFT [facility] Last Admin: 09/19/23 08:30 Dose: 3 ml Tizanidine HCl (Tizanidine Hcl 4 Mg Tablet) 2 mg PO TID [facility] Last Admin: 09/19/23 08:29 Dose: 2 mg Tramadol HCl (Tramadol Hcl 50 Mg Tablet) 50 mg PO Q4H PRN PRN Reason: Pain, Moderate(Pain Scale 4-6) Last Admin: 09/17/23 08:54 Dose: 50 mg Transfer Discharge Sum: Hosp Time Spent with Patient Time attestation: Total time managing care of this patient today ____ minutes. Physical Exam Vital Signs: Vital Signs: Last Vital Signs Temp 97.8 F 09/19/23 07:37 Pulse 73 09/19/23 07:37 Resp 20 09/19/23 07:37 BP 146/82 H 09/19/23 07:37 Pulse Ox 92 09/19/23 07:37 O2 Del Method Trach Collar 09/19/23 07:37 O2 Flow Rate 8 09/19/23 07:37 FiO2 30 09/16/23 15:00 BMI result Body Mass Index 44.0
--- NOTE | 2023-09-19 11:53 | MHC.CM.PN ---
Addendum entered by Dominga Ferro 09/19/23 12:14: Second IMM given 09/18. Original Note: Plan will be for pt to d/c to [facility] tomorrow (once pt up to full strength tube feeds and tolerating well), per tucker they request he discharged here at 11am. Surgeon updated.
--- NOTE | 2023-09-19 12:24 | HO.WOUND ---
Wound Consult: Follow up 68yr old?Male admitted to [facility] from home on 09/16/23 - See progress notes and H&P for detailed history.? Patient admitted for elective PEG and Trach placement - see chart review for details. Wound consult follow up for Buttock wound.? Arrival to bedside patient and Patient agreeable to assessment and photo documentation.? Arrival to bedside patient observed on [place] Low Air Loss Mattress - direct care team reports Agility bed Pulsate Low Air Loss Speciality mattress had leak and was called for servicing last night. Agility rep arrived and new motor applied bed in working condition. With Assist of 5 staff patient was switched to Agility Pulsate Specialty mattress. Bed inservice completed with staff and patient reports increased comfort once settings were adjusted. Patient and family were educated and I reinforced the importance of repositioning and off loading pressure. Of note direct care team reports patient is requesting repositions when he feels he needs it and is allowing reposition when staff requests. Patient, Family and staff educated that despite specialty bed turns and repositions are still required every 2 hours and PRN. Prior to adjustment on the new bed the sacrum and buttock were assessed. The blisters to the Left buttock have resolved at this time, the right buttock remains with a stage 1 pressure injury 1cm x 1cm of pink intact nonblanchable tissue. 09/18/23 09/19/23 Right buttock Etiology: Stage 1 pressure injury Measurements: 1cm x 1cm Wound Bed: intact pink nonblanchable tissue Drainage / Odor: None Edges: ? irregular Mandy wound: ? pink blanchable tissue - No Induration, Fluctuance or Warmth noted Pain: pt reports less pain and tenderness when assessed Goals of Treatment: ? Off Load Pressure and protect from friction and moisture Left buttock / Gluteal Cleft Etiology: Friction Injury Wound Bed: Blisters resolved no open tissue noted at this time -blanchable redness Drainage / Odor: None Edges: ? irregular Mandy wound: ? pink blanchable tissue - No Induration, Fluctuance or Warmth noted Pain: pt denies pain and or tenderness Goals of Treatment: ? Off Load Pressure and protect from friction and moisture with barrier cream No new topical recommendations needed at this time. Sacral foam applied for prevention - turned and repositioned - on Agility Pulsate mattress. Recommendations: 1. Turn and Reposition every 2 hours and as needed for patient comfort.? Use pillows or wedges to support off loading positions. 2. Off Load all bony prominences with use of pillows and heel boots if needed.? Apply Preventative foams where needed. ? 3. Monitor for incontinence and moisture control, use barrier creams when needed for prevention and treatment. 4. Provide adequate and supplemental nutrition.? 5. Order or Continue low air loss mattress. 6. When applicable maintain blood glucose levels per Providers order. 7. Bilateral Buttock - Off Load Pressure - Cleanse with PH balance spray or wipes, pat dry. ?Apply thin layer of barrier cream to wound bed apply twice a day. Reapply thin layer PRN after each episode of incontinence. Re-consult wound care Nurse for wound deterioration or wound changes.
[2023-09-19 12:30] LABS: Glucose, Whole Blood 148 mg/dL (60-115)
--- NOTE | 2023-09-19 15:19 | MHC.SPEECHCO ---
FACILITY MANAGER HISTOLOGY discussed risks and advantages of resuming PO with Pt and present. After discussion they agreed to withold PO trials until PEG feeding is stabilized. D/C to [facility] cancelled this afternoon pending TF goal being met. FACILITY MANAGER HISTOLOGY continues to recommend Pt review and discuss benefits of PO supplementation at his next level of care.
[2023-09-19 16:18] LABS: Glucose, Whole Blood 154 mg/dL (60-115)
[2023-09-19] MEDS: Insulin Lispro 100 UNIT/ML 3 ML VIAL SUBCUT (16:52)
[2023-09-19 20:57] LABS: Glucose, Whole Blood 143 mg/dL (60-115)
[2023-09-19] MEDS: Finasteride 5 MG TABLET PO (21:30)
[2023-09-19] MEDS: traMADoL HCL 50 MG TABLET PO (21:32)
[2023-09-19] MEDS: Acetaminophen 325 MG TABLET 650 MG PO (21:32)
[2023-09-20 03:02] VITALS: BP 123/70; PULSE 72; RESP 19; TEMP 36.9; O2SAT 91
[2023-09-20] MEDS: Acetaminophen 325 MG TABLET 650 MG G-TUBE (03:09)
[2023-09-20] MEDS: traMADoL HCL 50 MG TABLET G-TUBE (03:10)
[2023-09-20] MEDS: Morphine Sulfate 2 MG/ML CARTRIDGE 4 MG IVPUSH ×2 (03:13→10:58)
[2023-09-20 07:20] VITALS: BP 124/71; PULSE 68; RESP 17; TEMP 36.2; O2SAT 95
[2023-09-20 07:38] LABS: Glucose, Whole Blood 155 mg/dL (60-115)
[2023-09-20] MEDS: hydroCHLOROthiazide 25 MG TABLET G-TUBE (08:46)
[2023-09-20] MEDS: Aspirin 81 MG TAB.CHEW G-TUBE (08:46)
[2023-09-20] MEDS: Atorvastatin Calcium 80 MG TABLET G-TUBE (08:46)
[2023-09-20] MEDS: TiZANidine HCL 4 MG TABLET 2 MG G-TUBE (08:47)
[2023-09-20] MEDS: Gabapentin 600 MG TABLET G-TUBE (08:47)
[2023-09-20] MEDS: Sertraline HCL 100 MG TABLET G-TUBE (08:47)
[2023-09-20] MEDS: amLODIPine Besylate 10 MG TABLET G-TUBE (08:47)
[2023-09-20] MEDS: 0.9 % Sodium Chloride Flush 3 ML SYRINGE IVFLUSH (08:48)
[2023-09-20] MEDS: Bethanechol Chloride 25 MG TABLET 50 MG G-TUBE (08:48)
[2023-09-20] MEDS: Insulin Lispro 100 UNIT/ML 3 ML VIAL SUBCUT (08:48)
[2023-09-20] MEDS: Losartan Potassium 50 MG TABLET G-TUBE (08:48)
[2023-09-20] MEDS: Pantoprazole Sodium 40 MG/10 ML VIAL IVPUSH (08:59)
--- NOTE | 2023-09-20 08:59 | P.PNGS_ITS ---
Subjective Subjective Date of Service: 09/20/23 Interval history: Feels ok. Per RN- overnight he had some coughing while taking his pills with sips of water. All meds changed from oral to G tube admin. Denies nausea. Passing flatus. Physical Exam 2 Vital Signs: Vital Signs: Last Vital Signs Temp 97.2 F 09/20/23 07:20 Pulse 68 09/20/23 07:20 Resp 17 09/20/23 07:20 BP 124/71 09/20/23 07:20 Pulse Ox 95 09/20/23 07:20 O2 Del Method Trach Collar 09/20/23 07:20 O2 Flow Rate 8 09/20/23 03:02 FiO2 30 09/16/23 15:00 BMI result Body Mass Index 44.0 Const: General: comfortable, no acute distress and alert O rientation/consciousness: patient oriented x3 Neck: Other: trach in place, site dry Resp: Effort & Inspection: normal respiratory effort GI: Other: PEG tube in place, tube feeds running Neuro: General: patient oriented x3 Objective Data Active Medications Acetaminophen (Acetaminophen 325 Mg Tablet) 650 mg G-TUBE Q6H PRN PRN Reason: fever, mild pain Last Admin: 09/20/23 03:09 Dose: 650 mg Documented By: SHO Amlodipine Besylate (Amlodipine Besylate 10 Mg Tablet) 10 mg G-TUBE DAILY [facility]; Protocol Last Admin: 09/20/23 08:47 Dose: 10 mg Documented By: WILFRID Aspirin (Aspirin 81 Mg Tab.Chew) 81 mg G-TUBE DAILY [facility] Last Admin: 09/20/23 08:46 Dose: 81 mg Documented By: WILFRID Atorvastatin Calcium (Atorvastatin Calcium 80 Mg Tablet) 80 mg G-TUBE DAILY [facility] Last Admin: 09/20/23 08:46 Dose: 80 mg Documented By: WILFRID Bethanechol Chloride (Bethanechol Chloride 25 Mg Tablet) 50 mg G-TUBE BID [facility] Last Admin: 09/20/23 08:48 Dose: 50 mg Documented By: WILFRID Dextrose (Dextrose 50 % 25 Gm/50 Ml Syringe) 25 gm IVPUSH Q15M PRN; Protocol PRN Reason: per Hypoglycemia Standing Ord. Finasteride (Finasteride 5 Mg Tablet) 5 mg PO BEDTIME [facility] Last Admin: 09/19/23 21:30 Dose: 5 mg Documented By: SHO Gabapentin (Gabapentin 600 Mg Tablet) 600 mg G-TUBE TID [facility] Last Admin: 09/20/23 08:47 Dose: 600 mg Documented By: WILFRID Glucose (Glucose Gel 15 Gm Gel..Gram.) 15 gm PO Q15M PRN; Protocol PRN Reason: per Hypoglycemia Standing Ord. Heparin Sodium (Porcine) (Heparin Sodium,Porcine 5,000 Unit/Ml Vial) 5,000 unit SUBCUT Q12H [facility] Last Admin: 09/19/23 22:17 Dose: 5,000 unit Documented By: SHO Hydrochlorothiazide (Hydrochlorothiazide 25 Mg Tablet) 25 mg G-TUBE DAILY [facility]; Protocol Last Admin: 09/20/23 08:46 Dose: 25 mg Documented By: WILFRID Insulin Human Lispro (Insulin Lispro 100 Unit/Ml 3 Ml Vial) 0 unit SUBCUT QIDACHS [facility]; Protocol Last Admin: 09/20/23 08:48 Dose: 2 unit Documented By: WILFRID Losartan Potassium (Losartan Potassium 50 Mg Tablet) 50 mg G-TUBE DAILY [facility]; Protocol Last Admin: 09/20/23 08:48 Dose: 50 mg Documented By: WILFRID Morphine Sulfate (Morphine Sulfate 2 Mg/Ml Cartridge) 4 mg IVPUSH Q4H PRN; Protocol PRN Reason: Pain, Severe (Pain Scale 7-10) Last Admin: 09/20/23 03:13 Dose: 4 mg Documented By: SHO Pt Own (Edaravone [ Radicava Ors] 105 Mg /5 Ml Suspension) 105 mg PO DAILY [facility] Last Admin: 09/20/23 08:59 Dose: 105 mg Documented By: WILFRID Pt Own (Riluzole 50 (Mg Tablet)) 50 mg PO BID [facility] Last Admin: 09/20/23 08:57 Dose: 50 mg Documented By: WILFRID Ondansetron HCl (Ondansetron Hcl 4 Mg/2 Ml Vial) 4 mg IVPUSH Q8H PRN PRN Reason: Nausea Pantoprazole Sodium (Pantoprazole Sodium 40 Mg/10 Ml Vial) 40 mg IVPUSH DAILY [facility] Last Admin: 09/20/23 08:59 Dose: 40 mg Documented By: WILFRID Sertraline HCl (Sertraline Hcl 100 Mg Tablet) 100 mg G-TUBE DAILY [facility] Last Admin: 09/20/23 08:47 Dose: 100 mg Documented By: WILFRID Sodium Chloride (0.9 % Sodium Chloride Flush 3 Ml Syringe) 3 ml IVFLUSH QSHIFT [facility] Last Admin: 09/20/23 08:48 Dose: 3 ml Documented By: WILFRID Tizanidine HCl (Tizanidine Hcl 4 Mg Tablet) 2 mg G-TUBE TID [facility] Last Admin: 09/20/23 08:47 Dose: 2 mg Documented By: WILFRID Tramadol HCl (Tramadol Hcl 50 Mg Tablet) 50 mg G-TUBE Q4H PRN PRN Reason: Pain, Moderate(Pain Scale 4-6) Last Admin: 09/20/23 03:10 Dose: 50 mg Documented By: LM-RIVLA Labs 09/16/23 08:32 09/16/23 08:32 Labs: Laboratory Results - last 24 hr 09/19/23 09/19/23 09/19/23 11:11 16:13 20:41 POC Glucose 148 H 154 H 143 H 09/20/23 07:35 POC Glucose 155 H Procedures Date of Service Date of Service: 09/20/23 Progress Note: A&P Assessment and plan (1) Status post gastrostomy: Status: Acute (2) Status post tracheostomy: Status: Acute (3) ALS (amyotrophic lateral sclerosis): Status: Acute Plan Patient doing well from surgical standpoint and medically stable. On full strength tube feeds and tolerating. Defer further swallow eval to facility. Plan for transfer to [facility] for further convalescence. Patient comfortable with plan. Time Spent With Patient Time: Total time managing care of this patient today ____ minutes. Quality Stroke Does the patient have a stroke diagnosis?: No VTE Prior VTE?: No VTE Risk Level:: Surgical - moderate VTE Device Contraindication: N/A - Device Ordered VTE Drug Contraindication: N/A - Med Ordered
--- NOTE | 2023-09-20 09:07 | P.DS_ITS ---
DS: Providers Provider Date of Service: 09/20/23 Date of admission: 09/16/23 08:13 Primary care physician: JAN Ray Attending physician on admission: Jerry Ring Consults: 09/15/23 12:56 Consult to Case Management Routine Comment: new tracheostomy/PEG tube, home care 09/18/23 12:33 Consult to Hospitalist Routine Comment: Consulting Provider: Hospitalist Reason For Exam: ALS, new trach 09/18/23 12:35 Consult to Wound Care Routine Reason for consultation: new wound Attending physician on discharge: Jerry Ring DS: Diagnosis Discharge Diagnosis (1) Status post gastrostomy: Status: Acute (2) Status post tracheostomy: Status: Acute DS: Summary Hospital Course Hospital Course: HPI AT ADMISSION: Telemedicine conference with patient and his regarding tracheostomy placement and gastrostomy tube placement because of progressively worsening Tri Gehrig's disease . Patient was referred from the the patient's director on air, Dr. Franklin for difficulty handling secretions. No overt dysphagia currently however plan for PEG tube at that time for future. Chart was reviewed and patient evaluated via telemedicine. HOSPITAL COURSE: On 09/15/23, a tracheostomy was performed by Dr. Ring and PEG tube placement by Dr. Mckenzie without complication. The patient tolerated the procedure well. He had an uncomplicated recovery course. He was admitted to the ICU for observation post operatively. All his home medications were resumed. Hospitalist consult was obtained for medical management. He remained stable and was transferred to the medical/telemetry floor. Speech therapy was consulted however he failed his swallow evaluation and therefore tube feedings were initiated for nutrition. He developed coughing when swallowing his pills and therefore all meds were changed to administration via PEG tube. On the day of discharge, he was tolerating the tube feeds well and they are at full strength of Glucerna with max goal of 75ml/hr with 240ml free water flushes q6h. His trach was in place and site dry and he was stable respiratory camacho on trach collar 8L. He did develop a new b/l upper buttock/sacral wound and was evaluated by wound care who recommended to cleanse with PH balance spray or wipes, pat dry. Apply thin layer of barrier cream to wound bed apply twice a day. Reapply thin layer PRN after each episode of incontinence. He had a [place] catheter during his stay. He was discharged on 09/20/23 to [facility] in stable condition. He is to bring his home ALS medications. He is to follow up in [address] Ring. He is to follow up with his PCP upon discharge. Status at Discharge Functional status at discharge: bed bound Overall status at discharge: patient is back to baseline Time Attestation Discharge Coordination Time: discharge time of ____ minutes Quality: Safe Use of Opioids Does Pt have an Active Cancer Diagnosis on the Problem List?: No Quality: Stroke Does the patient have a stroke diagnosis?: No Physical Exam Vital Signs: Vital Signs: Last Vital Signs Temp 97.2 F 09/20/23 07:20 Pulse 68 09/20/23 07:20 Resp 17 09/20/23 07:20 BP 124/71 09/20/23 07:20 Pulse Ox 95 09/20/23 07:20 O2 Del Method Trach Collar 09/20/23 07:20 O2 Flow Rate 8 09/20/23 03:02 FiO2 30 09/16/23 15:00 BMI result Body Mass Index 44.0 Const: General: comfortable, no acute distress and alert Nutritional Appearance: obese Neck: Other: trach in place, site dry, stay sutures in place Resp: Effort & Inspection: normal respiratory effort GI: Other: PEG tube in place, site clean, tube feeds running Inspection: No distended Palpation (GI): Soft to palpation, nontender and no guarding Skin: Other: Right buttock Etiology: Stage 1 pressure injury Measurements: 1cm x 1cm Wound Bed: intact pink nonblanchable tissue Drainage / Odor: None Edges: irregular Mandy wound: pink blanchable tissue - No Induration, Fluctuance or Warmth noted Left buttock / Gluteal Cleft Etiology: Friction Injury Wound Bed: Blisters resolved no open tissue noted at this time -blanchable redness Drainage / Odor: None Edges: irregular Mandy wound: pink blanchable tissue - No Induration, Fluctuance or Warmth noted DS: Data Data Completed and Pending Labs on day of discharge: Laboratory Results - last 24 hr 09/19/23 09/19/23 09/19/23 11:11 16:13 20:41 POC Glucose 148 H 154 H 143 H 09/20/23 07:35 POC Glucose 155 H Discharge Plan Discharge Anticipated Discharge Date/Time: 09/19/23 15:18 Patient Disposition: Xfer LTC Discharge Diagnosis: s/p tracheostomy and PEG tube Referrals: [facility] [Outside] - 1 Week Salvador Dimas FNP- [Primary Care Provider] - 1 Week Jerry Ring MD [Physician] - 1 Week Discharge Medications: New hydrocodone-acetaminophen 5-325 mg tablet 1 tab PO Q4-6H PRN (Reason: pain) Qty: 30 0RF Rx Instructions: Partial Fill upon patient request. Continued (DME) OneTouch Ultra Blue Test Strip Strip See Rx Instructions .ROUTE .MEDSUPPLY Qty: 100 2RF Rx Instructions: BID once in the am..... then one other time throughout the day (either before lunch/dinner, or 2 hrs after lunch or dinner, or at bedtime) (DME) lancets [OneTouch UltraSoft Lancets] [facility] [place], [place] See Rx Instructions .ROUTE .MEDSUPPLY Qty: 100 2RF Rx Instructions: BID once in the am..... then one other time throughout the day (either before lunch/dinner, or 2 hrs after lunch or dinner, or at bedtime) (DME) blood-glucose meter [OneTouch Ultra2 Meter] [facility] [place] [place] See Rx Instructions .ROUTE .MEDSUPPLY Qty: 1 0RF Rx Instructions: Use to check blood sugar in morning and one other time during the day.(either before lunch/dinner, or 2 hrs after lunch or dinner, or at bedtime) atorvastatin 80 mg tablet 80 mg PO DAILY 90 Days Qty: 90 2RF metformin 1,000 mg tablet 500 mg PO BID Qty: 180 1RF (DME) Right Ankle Foot Orthosis See Rx Instructions .Route .MEDSUPPLY Qty: 1 0RF Rx Instructions: As directed losartan 50 mg tablet 50 mg PO DAILY Qty: 90 1RF tramadol 50 mg tablet 50 mg PO BID PRN (Reason: pain) 10 Days Qty: 20 0RF finasteride 5 mg tablet 5 mg PO DAILY 90 Days Qty: 90 1RF (DME) right ankle night resting splint See Rx Instructions .Route .MEDSUPPLY Qty: 1 0RF Rx Instructions: As directed (DME) insulin syringe-needle U-100 [BD Insulin Syringe Ultra-Fine] 0.3 mL 31 gauge x 5/16 syringe See Rx Instructions .ROUTE .MEDSUPPLY Qty: 100 1RF Rx Instructions: Use with Lantus for evening dose subcutaneous injection hydrochlorothiazide 25 mg tablet 25 mg PO DAILY Qty: 90 1RF insulin glargine [Lantus U-100 Insulin] 100 unit/mL solution 21 unit subcut QPM 90 Days Qty: 20 1RF pantoprazole 40 mg tablet,delayed release (DR/EC) 40 mg PO DAILY Qty: 90 1RF amlodipine 10 mg tablet 10 mg PO DAILY Qty: 90 1RF aspirin 81 mg tablet,delayed release (DR/EC) 81 mg PO DAILY coenzyme Q10 [Co Q-10] 100 mg capsule 100 mg PO DAILY fexofenadine [Lesli Allergy] 180 mg tablet 180 mg PO Q24H Align 4 mg capsule 4 mg PO DAILY [id number] Tablet 1 tab PO DAILY ascorbate calcium (vitamin C) 500 mg tablet 1,000 mg PO DAILY sertraline 100 mg tablet 100 mg PO DAILY Qty: 90 2RF riluzole 50 mg tablet 50 mg PO BID Radicava ORS 105 mg/5 mL suspension 105 mg PO DAILY gabapentin 600 mg tablet 600 mg PO TID (DME) CPAP Machine/Device Device See Rx Instructions .Route Rx Instructions: As directed Relyvrio 3-1 gram powder in packet 1 packet PO BID tizanidine 2 mg tablet 2 mg PO TID bethanechol chloride 50 mg tablet 50 mg PO BID 90 Days Qty: 90 3RF Discharge Orders: Discharge Order (Routine); Ordered 09/19/23 Ordered By: Jerry Ring Diet: Advance to usual diet Activity on Discharge: No heavy lifting Stand Alone Forms: Patient Portal Discharge page Activity Restrictions/Additional Instructions: May sponge bath. 8 long, cuffed tracheostomy tube, Trach collar 8 L 20F PEG tube Tube Feeds: RECOMMEND GLUCERNA AT MAX GOAL RATE 75ML/HR WITH 240ML FREE WATER FLUSHES Q 6 HRS TO PROVIDE 1800KCALS (23KCALS/KG BASED ON IBW), 75G PROTEIN (.96G/KG), 2495ML TOTAL WATER FROM FORMULA AND FLUSHES (32ML/KG BASED ON IBW) MONITOR TOLERANCE, RESIDUALS AND LYTES bilateral buttock/sacral wound care: 1. Turn and Reposition every 2 hours and as needed for patient comfort. Use pillows or wedges to support off loading positions. 2. Off Load all bony prominences with use of pillows and heel boots if needed. Apply Preventative foams where needed. 3. Monitor for incontinence and moisture control, use barrier creams when needed for prevention and treatment. 4. Provide adequate and supplemental nutrition. 5. Order or Continue low air loss mattress. 6. When applicable maintain blood glucose levels per Providers order. 7. Bilateral Buttock - Off Load Pressure - Cleanse with PH balance spray or wipes, pat dry. Apply thin layer of barrier cream to wound bed apply twice a day. Reapply thin layer PRN after each episode of incontinence. Care Plan Goals: Return to baseline health. Health Concerns: ALS, difficulty handling secretions diabetes mellitus hypertension Plan of Treatment: s/p tracheostomy and PEG tube Tube feedings until able to pass swallow eval Trach care F/u in office with Dr. Ring 1 week F/u with PCP and director on air Assessment: Doing fairly well post op
--- NOTE | 2023-09-20 11:15 | MHC.CLN ---
F/U PT WITH NEW PEG TUBE PLACED SEE FULL CLINICAL NUTRITION ASSESSMENT DATED 09/18/23 PT TOLERATING TF; GLUCERNA AT MAX GOAL RATE 75ML/HR WITH 240ML FREE WATER FLUSHES Q 6 HRS PROVIDES 1800KCALS (23KCALS/KG BASED ON IBW), 75G PROTEIN (.96G/KG), 2495ML TOTAL WATER FROM FORMULA AND FLUSHES (32ML/KG BASED ON IBW) MONITOR TOLERANCE, RESIDUALS AND LYTES
--- NOTE | 2023-09-20 12:05 | MHC.CM.PN ---
Pt medically cleared for D/C to [facility], transport set up via [facility] at 11am, pt brought 3 ALS medications with him per [facility]'s request.
== END 2023-09-20 11:55 | DRG 4 ==
LOC: HO.SSS 08:14 → HO.ICU 08:14 → HO.IMC 14:08
PROVIDERS: Internal Medicine Pulmonary Disease; Surgery; Admitting Provider Surgery; PCP Nurse Practitioner Family; Visit Provider Surgery
PROC: 0B110F4 Bypass Trachea to Cutaneous with Tracheostomy Device, Open Approach (ICD-10-PCS; principal; 2023-09-15 10:00)
PROC: 0DH63UZ Insertion of Feeding Device into Stomach, Percutaneous Approach (ICD-10-PCS; CPT 43246; 2023-09-15 10:00)
DX: G12.21 Amyotrophic lateral sclerosis (principal); Z68.41 Body mass index [BMI] 40.0-44.9, adult; G47.33 Obstructive sleep apnea (adult) (pediatric); E11.9 Type 2 diabetes mellitus without complications; E66.01 Morbid (severe) obesity due to excess calories; L24.A0 Irritant contact dermatitis due to friction or contact with body fluids, unspecified; Z74.01 Bed confinement status; Z79.4 Long term (current) use of insulin; Z79.84 Long term (current) use of oral hypoglycemic drugs; Z79.899 Other long term (current) drug therapy
CPT/HCPCS: 36415; 71045; 80048; 82947; 83735; 84100; 85025; 92610; 93005; 94799; C9113; J0690; J1644; J2250; J2270; J2795; J3010; J7120

== ENCOUNTER → 2023-09-16 08:13 | Outpatient (BNV) | payer MEDICARE, SELFPAY | PROVIDERS: Admitting Provider Surgery; PCP Nurse Practitioner Family; Visit Provider Nurse Practitioner Acute Care | DX: Z93.1 Gastrostomy status (principal); Z93.0 Tracheostomy status | CPT/HCPCS: 99221 ==